=== PATIENT | female | born 1995 | race Caucasian/White ===

== ENCOUNTER → 2019-12-12 10:27 | Outpatient (CLI) | payer OTHER, SELFPAY ==
--- NOTE | 2019-12-12 10:45 | RAD_ITS ---
STUDY: X-RAY - LUMBAR SPINE REASON FOR EXAM: Female, 24 years old patient with left sided low back pain. TECHNIQUE: 6 view(s) of the lumbar spine were obtained. COMPARISON: Prior comparison studies are not available for review at this time. FINDINGS: Normal lumbar lordosis. There is no substantial scoliosis. There is a normal alignment of the vertebrae. Normal vertebral bodies and endplates. Normal disc space heights. There is no demonstrated fracture. The soft tissue structures are unremarkable. RAD/L/S Spine Min 4 Views IMPRESSION: Normal x-ray examination of the lumbar spine. Electronically Signed: Mary Fernández MD at 2:02 EST , Service support ,
== END ==
DX: M54.5 Low back pain (principal)
CPT/HCPCS: 72110

== ENCOUNTER → 2021-01-01 | Outpatient (CLI) | payer OTHER, SELFPAY ==
[2021-01-09 14:20] LABS: HPV Reflexed? NOT INDICATED
== END | disposition home or self-care (01) ==
LOC: LABSPEC 15:04
PROVIDERS: Visit Provider Student in an Organized Health Care Education/Training Program
DX: Z12.4 Encounter for screening for malignant neoplasm of cervix (principal)
CPT/HCPCS: 88175; G0145

== ENCOUNTER 2021-05-26 12:32 | Outpatient (CLI) | payer OTHER, SELFPAY | END 2021-05-26 23:59 | disposition home or self-care (01) | LOC: LAB 12:34 | PROVIDERS: Visit Provider Student in an Organized Health Care Education/Training Program | DX: N92.6 Irregular menstruation, unspecified (principal) | CPT/HCPCS: 36415; 84144 ==

== ENCOUNTER → 2021-06-03 | Outpatient (CLI) | payer OTHER, SELFPAY ==
[2021-06-03 13:45] LABS: Follicle Stimulating Hormone 6.9 mIU/mL; Luteinizing Hormone 4.5 mIU/mL; Prolactin 11.6 ng/mL; T4 Free Direct 1.11 ng/dL (0.76-1.46); Thyroid Stim Hormone (TSH) 1.25 uIU/mL (0.358-3.74)
[2021-06-03 13:52] LABS: Hepatitis B Surface Antibody Reactive; Rubella IgG Reactive (Nonreactive)
[2021-06-07 12:52] LABS: Testosterone Free 1.2 pg/mL (0.0-4.2); V-Zoster IgG (Immunity) 468 index (Immune >165)
== END | disposition home or self-care (01) ==
LOC: WOBLAB 11:37
PROVIDERS: Visit Provider Student in an Organized Health Care Education/Training Program
DX: N92.6 Irregular menstruation, unspecified (principal)
CPT/HCPCS: 36415; 82627; 82670; 83001; 83002; 84146; 84402; 84439; 84443; 86706; 86762; 86787; 82626

== ENCOUNTER 2025-01-13 11:10 | Emergency (ER) | payer BC, SELFPAY ==
[2025-01-13 11:10] VITALS: BP 139/89; PULSE 112; RESP 16; TEMP 37; O2SAT 99; BMI 32.2
[2025-01-13] MEDS: 0.9% Normal Saline (1000mL) 1,000 ML 999 ML IV (11:45)
[2025-01-13 11:47] LABS: Red Blood Cells-Urine 0 SEEN /hpf (0-5)
[2025-01-13] MEDS: Famotidine 200 MG/20 ML MDV 20 MG in 0.9% Normal Saline (Pres. free 8 ML 300 MG IV (11:48)
[2025-01-13 11:49] LABS: Color, Urine Yellow (Yellow); Glucose, Dipstick Normal (Normal); Ketone-Dipstick 5 mg/dl (Negative); Leukocyte Esterase-Dipstick 25 /ul (Negative); Nitrite-Dipstick Negative (Negative); Occult Blood-Urine Negative /ul (Negative); Protein-Dipstick Negative (Negative); Specific Gravity, Urine 1.020 (1.002-1.030); Urine Bilirubin Dipstick Negative (Negative)
[2025-01-13 11:50] LABS: Hematocrit 39.5 % (37-47); Hemoglobin 13.5 g/dL (12.0-15.0); Immature Granulocytes Count 0.040 X10^3/uL (0.0-0.0); Mean Corp Hgb Conc 34.2 g/dL (32-36); Mean Corpuscular Volume 84.0 fL (81-99); Mean Platelet Vol. 8.8 fl (6.2-12.0); NRBC Flagged by Analyzer 0 % (0-5); POSITIVE DIFFERENTIAL YES; Platelet Count 122 K/mm3 (150-450); RBC Distribution Width CV 12.9 % (11.6-14.6); RBC Distribution Width SD 39.5 fl (35.1-43.9); Red Blood Count 4.70 M/mm3 (4.2-5.4); White Blood Count 8.3 K/mm3 (4.4-11.0)
[2025-01-13 11:56] LABS: Mucous, Urine 1+ /hpf (<or=2+); Squamous Epithelial Cells - UA 0-5 SEEN /hpf (5-10)
--- OUTSIDE RECORDS SUMMARY | 2025-01-13 12:09 | XMS RPT_ITS | CCD ---
Author Organization [facility] Care Team Providers Care Palaeontologist Name Role Phone Distel, Jocelyn Unavailable Unavailable Distel, Jocelyn Unavailable Unavailable Distel, Jocelyn Unavailable Unavailable Distel, Jocelyn Unavailable Unavailable Distel, Jocelyn Unavailable Unavailable Distel, Jocelyn Unavailable Unavailable Amada Orellana Admitting Unavailable Amada Orellana Attending Unavailable Jocelyn Moser Primary Care Unavailable Hortensia Davis MD Primary Care Provider Unavailable Primary Care Provider UnavailHortensia Clark MD Primary Care Provider HORTENSIA DAVIS Primary Care Unavailable XANDER CARRASQUILLO Attending Unavailab HORTENSIA Horton Primary Care Unavailable SAGRARIO AKHTAR Attending Unavail able Generic Provider , No Assigned Pcp Primary Car e Provider Unavailable CESIA KENNEDY MD Attending Unavailable PHYSICIAN, NOT RECORDED Primary Care Unavaila ELIF Iglesias Attending Unavailable PHYSICIAN, NOT RECORDED Primary Care Unavaila ble GENERIC PROVIDER, NO ASSIGNED PCP Primary Care Unavailable No, Physician Primary Care Provider Unavailabl Kayla Marlow CNP Primary Care Provider JOSE LUIS MARTE Attending Unavailable KAYLA AMBRIZ Primary Care Unavailabl JOSE LUIS Sosa Attending Unavailable KAYLA AMBRIZ Primary Care Unavailabl MICHELA Brandon Attending Unavailable NO, PHYSICIAN Primary Care Unavailable NO, PHYSICIAN Primary Care Unavailable DWAYNE GUTIERREZ Referring Unavailable No, Physician Primary Care Provider Unavailabl e PHYSICIAN, NOT RECORDED Primary Care Physician U navailable PHYSICIAN, NOT RECORDED Primary Care UnavailCHRISTIANO Solano MD Attending Unavailable NO, PHYSICIAN Primary Care Unavailable STEPHEN PEREZ Referring Unavailable KAREEN MURO Attending Unavailable KAYLA AMBRIZ Primary Care ROXANN Arango Attending KAYLA Graham Primary Care KAYLA Bassett Attending Bruce ALVAREZ, PHYSICIAN Primary Care Unavailable STEPHEN PEREZ Attending Unavailable NO, PHYSICIAN Primary Care Unavailable ROXANN ZAFAR Attending KAYLA Graham Primary Care KAYLA Bassett Attending Bruce acuña Allergies Allergy Classification Reported Allergen(s) Allergy Type Date of Onset Reaction(s) Facility (20 sources) Naproxen; Translations: [naproxen] Drug Allergy 01-03-[address] [facility] Repository Medications Current Medications Medication Drug Class(es) Dates Sig (Normalized) Sig (Original) aspirin 81 mg oral tablet (2 sources) Platelet Aggregation Inhibitor, Nonsteroidal Anti-inflammatory Drug Start: 11-30-2024 Aspirin Low Dose 81 mg oral tablet, chewable Dose : 81 mg = 1 tab(s), Chewed, qDay, 0 Refill(s) Start Date: 11/30/24 Status: Ordered Medication Dispense Status: Completed Total Allowed Fills: 1 Fills Dispensed: 0 Start: 11-30-2024 aspirin 81 mg chewable tablet 1 (one) tablet (81 mg total) . 11/30/2024 Active azelaic acid 150 mg/ml topical foam (10 sources) Start: 05-21-2021 azelaic acid (Finacea) 15 % Foam estradiol 2 mg oral tablet (1 source) Estrogen Start: 11-30-2024 estradiol 2 mg oral tablet Dose : 2 mg = 1 tab(s), Oral, TID, 0 Refill(s) Start Date: 11/30/24 Status: Ordered Medication Dispense Status: Completed Total Allowed Fills: 1 Fills Dispensed: 0 methIMAzole 10 mg oral tablet (15 sources) Thyroid Hormone Synthesis Inhibitor Start: 11-12-2023 End: 11-11-2024 take 2 tablets by mouth once daily at breakfast, then take 1 tablet by mouth at dinner methIMAzole (TAPAZOLE) 10 MG tablet Indications: Graves disease Take 2 (two) tablets (20 mg total) by mouth daily with breakfast AND 1 (one) tablet (10 mg total) after evening meal. 90 tablet 11 11/12/2023 Active Start: 10-17-2022 End: 10-17-2023 take 1 tablet by mouth twice daily methIMAzole (TAPAZOLE) 10 MG tablet Take 1 (one) tablet (10 mg total) by mouth 2 (two) times a day . 60 tablet 11 10/17/2022 10/17/2023 Active Start: 08-26-2021 End: 10-17-2022 take 1 tablet by mouth once daily methIMAzole (TAPAZOLE) 5 MG tablet Take 1 (one) tablet (5 mg total) by mouth daily . 30 tablet 11 10/04/2021 10/17/2022 Discontinued (Reorder (Suppress CancelRx Message to Pharmacy)) Complete with DHA oral capsule (1 source) Start: 12-02-2022 Complete with DHA oral capsule 1 cap, Oral, qDay, with food. any covered of choice., # 90 cap(s), 2 Refill(s), Pharmacy: [id number], 160.5, cm, 12/02/22 10:52:00 EDT, Height, kg, 12/02/22 10:52:00 EDT, Dosing Weight Start Date: 12/02/22 Status: Ordered Medication Dispense Status: Completed Quantity: 90.0 Unit: cap(s) Total Allowed Fills: 3 Fills Dispensed: 0 vitamin with Ca-Iron-FA 27-1 mg Tab (6 sources) take 1 tablet by mouth once daily vitamin with Ca-Iron-FA 27-1 mg Tab Take 1 (one) tablet by mouth daily . Active progesterone 50 mg/ml injectable solution (1 source) Progesterone Start: 11-30-2024 progesterone in OIL 50 mg/mL intramuscular solution Dose = 10 mg, qDay, 0 Refill(s), 72.7 Start Date: 11/30/24 Status: Ordered Medication Dispense Status: Completed Total Allowed Fills: 1 Fills Dispensed: 0 propylthiouracil 50 mg oral tablet (5 sources) Thyroid Hormone Synthesis Inhibitor Start: 09-08-2024 take 1 tablet by mouth three times daily propylthiouraciL (PTU) 50 mg tablet Take 1 (one) tablet (50 mg total) by mouth 3 (three) times a day . 90 tablet 3 09/08/2024 Active terbinafine 250 mg oral tablet (1 source) Allylamine Antifungal Start: 12-22-2023 End: 02-05-2024 take 1 tablet by mouth once daily terbinafine HCL (LAMISIL) 250 mg tablet Take 1 (one) tablet (250 mg total) by mouth daily . 45 tablet 12/22/2023 02/05/2024 Active Completed/Discontinued Medications Medication Drug Class(es) Dates Sig (Normalized) Sig (Original) acetaminophen 325 mg / HYDROcodone bitartrate 5 mg oral tablet (1 source) Opioid Agonist Start: 12-01-2013 take 1 tablet by mouth every six hours as needed HYDROcodone-acetam inophen (NORCO) 5-325 mg per tablet Take 1 tablet by mouth every 6 hours as needed for Pain. 21 tablet 0 12/01/2013 Active Comment on above: Take 1 tablet by lesli th every 6 hours as needed for Pain. [id number] 200 actuat albuterol 0.09 mg/actuat metered dose inhaler (19 sources) beta2-Adrenergic Agonist End: 10-18-2024 albuterol 90 mcg/actuation inhaler Inhale 2 (two) puffs . 10/18/2024 Discontinued (Patient's Request) take 2 puff(s) by in halation every six hours as needed albuterol HFA (PROVENTIL HFA) 90 mcg/actuation inhaler Inhale 2 Puffs as instructed every 6 hours as needed. 0 Active Comment on above: Inhale 2 Puffs as in structed every 6 hours as needed. amoxicillin 875 mg / clavulanate 125 mg oral tablet (3 sources) Penicillin-class Antibacterial Start: 025 End: amoxicillin-clavula rahul (AUGMENTIN) 875-125 mg per tablet 05/18/2024 10/18/2024 Discontinued (Patient's Request) bacitracin zinc 0.5 unt/mg topical ointment (1 source) Start: 023 End: 023 bacitracin ointment 1 Application betamethasone 0.5 mg/ml / clotrimazole 10 mg/ml topical cream (4 sources) Azole Antifungal, Corticosteroid Start: 024 End: 025 clotrimazole-betame thasone (LOTRISONE) cream Apply topically 2 (two) times a day . 30 g 2 12/22/2023 10/18/2024 Discontinued (Patient's Request) ferrous sulfate 325 mg oral tablet (20 sources) Start: End: take 1 tablet by mouth once daily at breakfast ferrous sulfate 325 (65 FE) MG tablet Take 1 (one) tablet (325 mg total) by mouth daily with breakfast . 90 tablet 08/07/2021 10/18/2024 Discontinued (Patient's Request) ibuprofen 600 mg oral tablet (1 source) Nonsteroidal Anti-inflammatory Drug Start: take 1 tablet by mouth every six hours as needed ibuprofen (MOTRIN) 600 mg tablet Take 1 tablet by mouth every 6 hours as needed for Pain. 28 tablet 0 12/01/2013 Active Comment on above: Take 1 tablet by lesli th every 6 hours as needed for Pain. metFORMIN hydrochloride 500 mg oral tablet (18 sources) Biguanide Start: End: take 1 tablet by mouth once daily at breakfast metFORMIN (GLUCOPHAGE) 500 MG tablet Take 1 (one) tablet (500 mg total) by mouth daily with breakfast . 30 tablet 11 08/05/2021 10/17/2022 Discontinued End: 10-18-2024 take 1 tablet by mouth twice daily at mealtime metFORMIN (GLUCOPHAGE) 500 MG tablet Take 1 (one) tablet (500 mg total) by mouth 2 (two) times a day with meals . 10/18/2024 Discontinued (Patient's Request) NORETHINDRONE, CONTRACEPTIVE, ORAL (1 source) NORETHINDRONE, CONTRACEPTIVE, ORAL Take by mouth. 0 Active Comment on above: Take by mouth. phentermine hydrochloride 37.5 mg oral tablet (4 sources) Sympathomimetic Amine Anorectic Start: End: take 1 tablet by mouth once daily in the morning phentermine (Adipex-P) 37.5 mg tablet Indications: BMI 29.0-29.9,adult Take 1 (one) tablet (37.5 mg total) by mouth every morning . 30 tablet 0 11/24/2021 10/17/2022 Discontinued propranolol hydrochloride 10 mg oral tablet (5 sources) beta-Adrenergic Donna Start: End: 09-09-2 025 take 1 tablet by mouth four times daily as needed propranoloL (INDERAL) 10 MG tablet Take 1 (one) tablet (10 mg total) by mouth 4 (four) times a day as needed . 120 tablet 11 10/17/2022 10/18/2024 Discontinued (Patient's Request) Problems Active Problems Problem Classification Problem Date Documented Date Episodic/Chronic Acquired foot deformities (1 source) Bunion; Translations: [Bunion of unspecified foot] 12-22-2023 Episodic Asthma (1 source) Asthma 12-02-2022 Chronic Comment on above: sport induced Cardiac dysrhythmias (2 sources) Palpitations; Translations: [Palpitations] Onset: 10-26-2022 Episodic Deficiency and other anemia (2 sources) Iron deficiency anemia, unspecified; Translations: [Iron deficiency anemia, unspecified] Onset: 11-24-2021 Episodic Mycoses (2 sources) Onychomycosis; Translations: [Tinea unguium] 12-22-2023 Episodic Other connective tissue disease (1 source) Deformity of lower limb; Translations: [Contracture of muscle, unspecified lower leg] 12-22-2023 Episodic Other ear and sense organ disorders (1 source) Conductive hearing loss, unilateral, right ear, with unrestricted hearing on the contralateral side; Translations: [Conductive hearing loss, unilateral] 05-19-2024 Chronic Other endocrine disorders (20 sources) Polycystic ovary syndrome; Translations: [Polycystic ovarian syndrome] Chronic Other lower respiratory disease (2 sources) Solitary pulmonary nodule; Translations: [Solitary pulmonary nodule] Onset: 08-17-2017 Episodic Other lower respiratory disease (1 source) Solitary nodule of lung 12-02-2022 Episodic Other and delivery including normal (1 source) Onset: 10-20-2024 11-30-2024 Episodic Other skin disorders (1 source) Dystrophia unguium; Translations: [Nail dystrophy] 12-22-2023 Episodic Residual codes; unclassified (2 sources) 8 weeks gestation of ; Translations: [8 weeks gestation of ] Onset: 11-30-2024 Episodic Thyroid disorders (20 sources) Subclinical hyperthyroidism; Translations: [Thyrotoxicosis, unspecified without thyrotoxic crisis or storm] Onset: 11-24-2021 Chronic Unclassified (11 sources) Other nonspecific abnormal finding of lung field; Translations: [Patient encounter status] Onset: 02-25-2017 10-18-2024 Episodic Unclassified (2 sources) 10/20/2024 FMLA PAPERWORK Onset: 10-20-2024 Viral infection (1 source) Acute viral disease; Translations: [Viral infection, unspecified] 05-19-2024 Episodic Past or Other Problems Problem Classification Problem Date Documented Da te Episodic/Chronic Administrative/social admission (12 sources) Financial problem; Translations: [Problem related to housing and economic circumstances, unspecified] Onset: 11-24-2021 11-24-2021 Episodic Deficiency and other anemia (12 sources) Iron deficiency anemia; Translations: [Iron deficiency anemia, unspecified] Onset: 11-24-2021 Episodic Immunizations and screening for infectious disease (20 sources) Patient encounter status; Translations: [Encounter for immunization] Onset: 08-05-2021 Episodic Mood disorders (10 sources) Mood disorders Onset: 08-06-2021 Resolved: 10-18-2024 08-06-2021 Open wounds of extremities (3 sources) Laceration of left knee; Translations: [Laceration without foreign body, left knee, initial encounter] Onset: 12-03-2022 12-03-2022 Episodic Other nutritional; endocrine; and metabolic disorders (18 sources) Weight gain; Translations: [Abnormal weight gain] Onset: 08-05-2021 Episodic Other nutritional; endocrine; and metabolic disorders (10 sources) Overweight in adulthood with body mass index of 25 or more but less than 30; Translations: [Body mass index (BMI) 29.0-29.9, adult] Onset: 11-24-2021 11-24-2021 Episodic Other nutritional; endocrine; and metabolic disorders (6 sources) Weight increased; Translations: [Abnormal weight gain] Onset: 08-05-2021 08-05-2021 Episodic Otitis media and related conditions (4 sources) Bilateral disorder of Eustachian tubes; Translations: [Unspecified Eustachian tube disorder, bilateral] Onset: 05-19-2024 05-19-2024 Episodic Residual codes; unclassified (2 sources) Localized edema; Translations: [Localized edema] Onset: 11-25-2021 Episodic Skin and subcutaneous tissue infections (2 sources) Cellulitis of left lower limb; Translations: [Cellulitis of left lower limb] Onset: 11-25-2021 Episodic Syncope (2 sources) Syncope and collapse; Translations: [Syncope and collapse] Onset: 02-25-2017 Episodic Results Test Name Value Interpretation Reference Range Facility AMOXICILLIN+CLAVULANATE:SUSC :PT:ISOLATE:ORDQN:MICon 11-30-2024 Amoxicillin+Clavulanate HOWARD [Susc] >100,000 cfu/ml Escherichia coli [facility] Work Phone: Amoxicillin+Clavulanate HOWARD [Susc]on 11-30-[address] Escherichia [address] [facility] Work Phone: HCG, BLOOD, QUANTITATIVEon 0 10-31-2024 HCG, QUANTITATIVE 363 mIU/mL [address] Comment on above: Order Comment: Males and non females: <5 mIU/mL Females during : 3-4 weeks 9-130 mIU/mL 4-5 weeks 75-2600 mIU/mL 5-6 weeks 850-20,800 mIU/mL 6-7 weeks 4000-100,200 mIU/mL 7-12 weeks 11,500-289,000 mIU/mL 12-16 weeks 18,300-137,000 mIU/mL 16-29 weeks 1,400-53,000 mIU/mL 29-41 weeks 940-60,000 mIU/mL Performed By: #### 4 5827 #### [facility] [place] [address] Yoel Riley M.D. [id number] HCG, BLOOD, QUANTITATIVEon 0 10-28-2024 HCG, QUANTITATIVE 79 mIU/mL [address] Comment on above: Order Comment: Males and non females: <5 mIU/mL Females during : 3-4 weeks 9-130 mIU/mL 4-5 weeks 75-2600 mIU/mL 5-6 weeks 850-20,800 mIU/mL 6-7 weeks 4000-100,200 mIU/mL 7-12 weeks 11,500-289,000 mIU/mL 12-16 weeks 18,300-137,000 mIU/mL 16-29 weeks 1,400-53,000 mIU/mL 29-41 weeks 940-60,000 mIU/mL Performed By: #### 4 5827 #### [place] [address] Yoel Riley M.D. [id number] CBC (INCLUDES DIFF/PLT)on Basophils (Bld) [#/Vol] 0.013 10*3/uL Normal 0-200 [facility] Comment on above: Performed By: #### 6 399, 5616, 03310 #### [facility] of [address], [address] [place] [address] [employer] Sales Leader: Lucas Rose MD Basophils/100 WBC (Bld) 0.2 % Normal [facility] Comment on above: Performed By: #### 6 399, 5616, 21102 #### [facility] [place] [address] [employer] Sales Leader: Lucas Rose MD Eosinophils (Bld) [#/Vol] 0 10*3/uL Low 15-500 [facility] Comment on above: Performed By: #### 6 399, 5616, 21471 #### [facility] [place] [address] [employer] Sales Leader: Lucas Rose MD Eosinophils/100 WBC (Bld) 0.0 % Normal [facility] Comment on above: Performed By: #### 6 399, 5616, 50515 #### [facility] [place] [address] [employer] Sales Leader: Lucas Rose MD Erythrocyte distribution width (RBC) [Ratio] 14.1 % Normal 11.0-15.0 [facility] Comment on above: Performed By: #### 6 399, 5616, 57034 #### [facility] [place] [address] [employer] Sales Leader: Lucas Rose MD Hematocrit (Bld) [Volume fraction] 39.6 % Normal 35.0-45.0 [facility] Comment on above: Performed By: #### 6 399, 5616, 51187 #### [facility] of [address], [address] [place] [address] [employer] Sales Leader: Lucas Rose MD Hemoglobin (Bld) [Mass/Vol] 12.7 g/dL Normal 11.7-15.5 [facility] Comment on above: Performed By: #### 6 399, 5616, 09993 #### [facility] of [address], [address] [place] [address] [employer] Sales Leader: Lucas Rose MD Lymphocytes (Bld) [#/Vol] 2.01 10*3/uL Normal 850-3900 [facility] Comment on above: Performed By: #### 6 399, 5616, 87648 #### [facility] of [place] [address] [employer] Sales Leader: Lucas Rose MD Lymphocytes/100 WBC (Bld) 31.4 % Normal [facility] Comment on above: Performed By: #### 6 399, 5616, 50294 #### [facility] of [place] [address] [employer] Sales Leader: Lucas Rose MD MCH (RBC) [Entitic mass] 27.8 pg Normal 27.0-33.0 [facility] Comment on above: Performed By: #### 6 399, 5616, 59657 #### [facility] of [place] [address] [employer] Sales Leader: Lucas Rose MD MCHC (RBC) [Mass/Vol] 32.1 g/dL Normal 32.0-36.[address] [facility] [address] [facility] Comment on above: Result Comment: For adults, a slight decrease in the calculated MCHC value (in the range of 30 to 32 g/dL) is most likely not clinically significant; however, it should be interpreted with caution in correlation with other red cell parameters and the patient's clinical condition. Performed By: #### 6 399, 5616, 38338 #### [facility] of [place] [address] [employer] Sales Leader: Lucas Rose MD MCV (RBC) [Entitic vol] 86.7 fL Normal 80.0-100.0 [facility] Comment on above: Performed By: #### 6 399, 5616, 20561 #### [facility] of [place] [address] [employer] Sales Leader: Lucas Rose MD Monocytes (Bld) [#/Vol] 0.39 10*3/uL Normal 200-950 [facility] Comment on above: Performed By: #### 6 399, 5616, 17199 #### [facility] of [place] [address] [employer] Sales Leader: Lucas Rose MD Monocytes/100 WBC (Bld) 6.1 % Normal [facility] Comment on above: Performed By: #### 6 399, 5616, 89762 #### [facility] of [place] [address] [employer] Sales Leader: Lucas Rose MD Neutrophils (Bld) [#/Vol] 3.987 10*3/uL Normal 1500-78 00 [facility] Comment on above: Performed By: #### 6 399, 5616, 44078 #### [facility] [place] [address] [employer] Sales Leader: Lucas Rose MD Neutrophils/100 WBC (Bld) 62.3 % Normal [facility] Comment on above: Performed By: #### 6 399, 5616, 22687 #### [facility] of [place] [address] [employer] Sales Leader: Lucas Rose MD Platelet mean volume (Bld) [Entitic vol] 9.1 fL Normal 7.5-12.5 [facility] Comment on above: Performed By: #### 6 399, 5616, 70941 #### [facility] of [place] [address] [employer] Sales Leader: Lucas Rose MD Platelets (Bld) [#/Vol] 179 10*3/uL Normal 140-400 [facility] Comment on above: Performed By: #### 6 399, 5616, 82134 #### [facility] of [address], [address] [place] [address] [employer] Sales Leader: Lucas Rose MD RBC (Bld) [#/Vol] 4.57 10*6/uL Normal 3.80-5.10 [facility] Comment on above: Performed By: #### 6 399, 5616, 32515 #### [facility] of [address], [address] [place] [address] [employer] Sales Leader: Lucas Rose MD WBC (Bld) [#/Vol] 6.4 10*3/uL Normal 3.8-10.8 [facility] Comment on above: Performed By: #### 6 399, 5616, 55219 #### [facility] of [place] [address] [employer] Sales Leader: Lucas Rose MD COMPREHENSIVE METABOLIC PANE L W/ANION GAPon 10-20-2024 Albumin [Mass/Vol] 4.0 g/dL Normal 3.6-5.1 [facility] Comment on above: Performed By: #### 6 399, 5616, 00108 #### [facility] of [place] [address] [employer] Sales Leader: Lucas Rose MD ALP [Catalytic activity/Vol] 50 U/L Normal 31-125 [facility] Comment on above: Performed By: #### 6 399, 5616, 08603 #### [facility] of [place] [address] [employer] Sales Leader: Lucas Rose MD ALT [Catalytic activity/Vol] 13 U/L Normal 6-29 [facility] Comment on above: Performed By: #### 6 399, 5616, 66547 #### [facility] of [place] [address] [employer] Sales Leader: Lucas Rose MD AST [Catalytic activity/Vol] 14 U/L Normal 10-30 [facility] Comment on above: Performed By: #### 6 399, 5616, 97564 #### [facility] of [place] [address] [employer] Sales Leader: Lucas Rose MD Bilirubin [Mass/Vol] 0.3 mg/dL Normal 0.2-1.2 [facility] Comment on above: Performed By: #### 6 399, 5616, 68113 #### [facility] of [place] [address] [employer] Sales Leader: Lucas Rose MD Calcium [Mass/Vol] 8.8 mg/dL Normal 8.6-10.2 [facility] Comment on above: Performed By: #### 6 399, 5616, 08278 #### [facility] [place] [address] [employer] Sales Leader: Lucas Rose MD Chloride [Moles/Vol] 105 mmol/L Normal 98-110 [facility] Comment on above: Performed By: #### 6 399, 5616, 23962 #### [facility] [place] [address] [employer] Sales Leader: Lucas Rose MD CO2 [Moles/Vol] 26 mmol/L Normal 20-32 [facility] Comment on above: Performed By: #### 6 399, 5616, 33821 #### [facility] [place] [address] [employer] Sales Leader: Lucas Rose MD Creatinine [Mass/Vol] 0.67 mg/dL Normal 0.50-0.[address] [facility] Comment on above: Performed By: #### 6 399, 5616, 35951 #### [facility] [place] [address] [employer] Sales Leader: Lucas Rose MD ELECTROLYTE BALANCE 6 mmol/L (calc) Low 7-17 [facility] Comment on above: Performed By: #### 6 399, 5616, 05549 #### [facility] [place] [address] [employer] Sales Leader: Lucas Rose MD GFR/1.73 sq M.predicted among non-blacks MDRD (S/P/Bld) [Vol rate/Area] 121 mL/min/{1.73_m2} Normal > OR = 60 [facility] Comment on above: Performed By: #### 6 399, 5616, 36831 #### [facility] [place] [address] [employer] Sales Leader: Lucas Rose MD Glucose [Mass/Vol] 98 mg/dL Normal 65-139 [facility] Comment on above: Result Comment: Non-fasting reference interval Performed By: #### 6 399, 5616, 43164 #### [facility] [place] [address] [employer] Sales Leader: Lucas Rose MD Potassium [Moles/Vol] 3.8 mmol/L Normal 3.5-5.[address] [facility] [address] [facility] Comment on above: Performed By: #### 6 399, 5616, 68505 #### [facility] [place] [address] [employer] Sales Leader: Lucas Rose MD Protein [Mass/Vol] 6.3 g/dL Normal 6.1-8.1 [facility] Comment on above: Performed By: #### 6 399, 5616, 24948 #### [facility] [place] [address] [employer] Sales Leader: Lucas Rose MD Sodium [Moles/Vol] 137 mmol/L Normal 135-146 [facility] Comment on above: Performed By: #### 6 399, 5616, 39677 #### [facility] [place] [address] [employer] Sales Leader: Lucas Rose MD Urea nitrogen [Mass/Vol] 16 mg/dL Normal 7-25 [facility] Comment on above: Performed By: #### 6 399, 5616, 87359 #### [facility] of [place] [address] [employer] Sales Leader: Lucas Rose MD IRON, TIBC AND FERRITIN GAVIN Mota 10-20-2024 % SATURATION 23 % (calc) Normal 16-45 [facility] Comment on above: Order Comment: FASTI NG:NO FASTING: NO Performed By: #### 6 399, 5616, 75746 #### [facility] [place] [address] [employer] Sales Leader: Lucas Rose MD Ferritin [Mass/Vol] 14 ng/mL Low 16-154 [facility] Comment on above: Order Comment: FASTI NG:NO FASTING: NO Performed By: #### 6 399, 5616, 05167 #### [facility] [place] [address] [employer] Sales Leader: Lucas Rose MD IRON BINDING CAPACITY 326 mcg/dL (calc) Normal 250-450 [facility] Comment on above: Order Comment: FASTI NG:NO FASTING: NO Performed By: #### 6 399, 5616, 04028 #### [facility] [place] [address] [employer] Sales Leader: Lucas Rose MD IRON, TOTAL 74 mcg/dL Normal 40-190 [facility] Comment on above: Order Comment: FASTI NG:NO FASTING: NO Performed By: #### 6 399, 5616, 23038 #### [facility] [place] [address] [employer] Sales Leader: Lucas Rose MD ED Prov Noteon 08-21-2024 ED Prov Note ED PROVIDER NOTE [facility] EM[facility] NAME: Gardenia Kevin AGE: 29 y.o. : 1995 VISIT DATE: 08/21/2024 CSN: [id number] PCP: No, Physician No chief complaint on file. HPI Past Medical History: Diagnosis Date Graves disease PCOS (polycystic ovarian syndrome) History reviewed. No pertinent surgical history. Family History Problem Relation Age of Onset Lymphoma Maternal Grandmother Bladder Cancer Maternal Grandfather Social History [1] Previous Medications Medication Sig albuterol 90 mcg/actuation inhaler Inhale 2 (two) puffs . (Patient not taking: Reported on 05/19/2024 .) amoxicillin-clavulana te (AUGMENTIN) 875-125 mg per tablet clotrimazole-betameth asone (LOTRISONE) cream Apply topically 2 (two) times a day . (Patient not taking: Reported on 05/19/2024 .) ferrous sulfate 325 (65 FE) MG tablet Take 1 (one) tablet (325 mg total) by mouth daily with breakfast . (Patient not taking: Reported on 11/22/2021 .) metFORMIN (GLUCOPHAGE) 500 MG tablet Take 1 (one) tablet (500 mg total) by mouth 2 (two) times a day with meals . (Patient not taking: Reported on 05/19/2024 .) methIMAzole (TAPAZOLE) 10 MG tablet Take 2 (two) tablets (20 mg total) by mouth daily with breakfast AND 1 (one) tablet (10 mg total) after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 CLINICAL INFORMATION: ANNUAL - Non - DATE LMP/MENOPAUSE: 12/19/20 LMP - COLLECTION VIAL: Thin Prep Vial - FINANCIAL ADMINISTRATOR SOURCE: CERVICAL/ENDOCERVICAL - COLLECTION TECHNIQUE: BRUSH/SPATULA Specimen Comment: [id number] Specimen Comment: No. of containers..01 ThinPrep Vial Result Comment: Cherelle Tavrea, Truss Designer Performed By: #### L 7400.0353 #### [facility] [address] [place], [place], [address] COMM . Normal . [facility] Comment on above: Order Comment: CYTOL OGY INFORMATION: - CLINICAL INFORMATION: ANNUAL - Non - DATE LMP/MENOPAUSE: 12/19/20 LMP - COLLECTION VIAL: Thin Prep Vial - FINANCIAL ADMINISTRATOR SOURCE: CERVICAL/ENDOCERVICAL - COLLECTION TECHNIQUE: BRUSH/SPATULA Specimen Comment: [id number] Specimen Comment: No. of containers..01 ThinPrep Vial Performed By: #### L 7400.0353 #### [facility] [address] [place], [address] CHEST 1 VIEWon 01-05-2021 CHEST 1 VIEW Patient Name: GARDENIA KEYES STUDY: CHEST 1 VIEW; 01/05/2021 2:06 pm INDICATION: Chest Pain . COMPARISON: None. ACCESSION NUMBER(S): [id number] ORDERING CLINICIAN: GRAHAM SMILEY FINDINGS: CARDIOMEDIASTINAL SILHOUETTE: Cardiomediastinal silhouette is normal in size and configuration. LUNGS: Lungs are clear. ABDOMEN: No remarkable upper abdominal findings. BONES: No acute osseous changes. IMPRESSION: 1. No evidence of acute cardiopulmonary process. Electronically signed by: RAI NAVA MD Normal [facility] CORONAVIRUS 2019 BY PCRon SARS-CoV-2 (COVID-19) RNA AMRIT+probe Ql (Unsp spec) Not detected Normal Not Detected [facility] Comment on above: Result Comment: . This test has received FDA Emergency Use Authorization (EUA) and has been verified by [facility]. This test is only authorized for the duration of time that circumstances exist to justify the authorization of the emergency use of in vitro diagnostic tests for the detection of SARS-CoV-2 virus and/or diagnosis of COVID-19 infection under section 564(b)(1) of the Act, 21 U.S.C. 360bbb-3(b)(1), unless the authorization is terminated or revoked sooner. [facility] is certified under CLIA-88 as qualified to perform high complexity testing. Testing is performed in the [facility] laboratory located at [address] [place] [address]. SARS-CoV-2/Flu/RSV Multiplex Test: Fact sheet for providers: https://www.fda.gov/media/632242/download Fact sheet for patients: https://www.fda.gov/media/305373/download Performed By: #### C OV19 #### [address] [address] Lab Specimen Source Nasal, Nasopharyngeal [facility] Comment on above: Performed By: #### C OV19 #### [address] [address] DATE OF SYMPTOM ONSET [[id number]]? [id number] [facility] Comment on above: Performed By: #### C OV19 #### [address] [address] Covid 19 Resultson 1 SARS-CoV-2 (COVID-19) RNA AMRIT+probe Ql (Unsp spec) NEGATIVE COVID-19 Test Coronaviruses are common world-wide and are the cause of many common colds. SARS-COV2 is a new coronavirus that began circulating worldwide in 2019 so we are calling it COVID-19. It has been estimated that four out of five patients with COVID-19 will recover at home without the need for medical attention. Symptoms of COVID-19 may include cough, fever, shortness of breath, loss of taste or smell and other flu-like symptoms including chills, sore muscles, sore throat, and headache. Severe illness is more common in older people and people with other health problems such as high blood pressure, obesity, and immune system problems. If the test is positive, you have COVID-19. You will be contacted by the ordering physicians office and instructed to remain on home isolation, in accordance with CDC guidelines. You may also be contacted by the [facility] to see if any of your close contacts may have been exposed to the virus and need to quarantine. If the test is negative, you likely do not have COVID-19 at this time, but you still may have a different illness that can spread to other people (like Influenza, or the Flu) and could still be at risk for getting COVID-19. We recommend that you stay away from other people to limit the spread of illness until your symptoms are improving and you are fever-free for 24 hours without the use of fever lowering medications such as acetaminophen or ibuprofen. No test is 100% accurate so if you are still concerned you may have COVID-19, talk to your doctor about the need to continue to stay away from others. Medicines Unless your provider told you not to use the following: Acetaminophen (Tylenol and others) is generally safe. Anti-inflammatory medications, such as Ibuprofen (Advil or Motrin) or Naproxen (Aleve) can also be used. Mwhd-xja-jfiohst cough and cold medicines can be used according to the instructions on the package. Some qcbs-ykc-mwtbrwv medicines also contain acetaminophen. Make sure you are not taking more than your recommended dose. For those not hospitalized, there is no specific treatment available for this illness. Antibiotics do not treat Coronaviruses. Follow-Up Follow up with your doctor by scheduling a virtual visit or consider follow-up at one of our urgent care fever clinics. If you are having difficulty breathing, or are very weak and having difficulty standing, this is a medical emergency. Call 911 or have someone take you to the nearest emergency room immediately. If possible, wear a facemask. Additional guidance from the CDC for patients who tested POSITIVE for COVID-19 How to isolate: Isolate yourself in a specific room at home and limit your contact with others. Use a separate bathroom from other members of the household, when possible. Leave home only to get essential medical care. Do not go to work, school or public areas. Avoid using public transportation, ride-sharing, or taxis. Restrict contact with pets and other animals. If you must care for your pet or be around animals while you are sick, wash your hands before and after your interaction and wear a facemask. Make sure that shared spaces in the home have good airflow, such as by an air conditioner or an opened window, weather permitting. Personal Hygiene Procedures: Wear a face mask when in the same room as other people or pets. If a face mask interferes with your breathing, others should wear a mask when sharing space with you. Frequent hand-washing: wash your hands with soap and water for at least 20 seconds. If soap and water are not available, use alcohol-based hand integration lead. Avoid touching your eyes, nose, and mouth with unwashed hands. Household Hygiene Procedures: Avoid sharing personal household items such as dishes, glassware, cups, eating utensils, towels or bedding with other people or pets in your home. After use, these items should be washed with soap and hot water. Disinfect all high-touch surfaces every day with antibacterial cleaning solutions such as Lysol wipes, bleach, cleansers, etc. High-touch surfaces include tabletops, doorknobs, bathroom fixtures, toilets, phones, keyboards, tablets and bedside tables. Immediately clean any surfaces that may have blood, poop or body fluids on them, using antibacterial cleaning solutions such as Lysol wipes, bleach, cleansers, etc. If clothing or bedding come into contact with blood, poop or body fluids, they should be washed immediately. Follow the directions on the laundry detergent and clothing labels but hot water is recommended when possible. Stopping home isolation precautions: If possible, consult your doctor before stopping home isolation precautions. According to the CDC, you can discontinue home isolation precautions when you have met both of these criteria: Your fever and respiratory symptoms have been gone for 24 melissa (more content not included)... Normal [facility] Provider Note - ED v3on 12-11 Provider Note - ED v3 Provider Note: Chart Review: ED NOTES ED NOTES: History of Present Illness: 25-year-old female presents with concern for chest pain. States it began with myalgias yesterday. States it is worked her way up to her chest. States that she feels congested. Mildly short of breath. Denies any fever, chills, nausea, vomiting, abdominal pain, urinary symptoms. Patient denies any history of DVT, PE, long trips, surgeries, hospitalizations. 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 Patient is currently not vaccinated against coronavirus. Past Medical History: None Past surgical History: None Family history: Reviewed and not pertinent to complaint Social history: Denies any drug, alcohol, tobacco abuse. REVIEW OF SYSTEMS: Pertinent negatives and positives noted in the HPI. Otherwise, a complete review of system was negative. PHYSICAL EXAM: Appearance: Alert, oriented , cooperative, in no acute distress. Skin: Intact, dry skin, no lesions, rash, petechiae or purpura. Eyes: PERRLA, EOMs intact, Conjunctiva pink with no redness or exudates. Eyelids without lesions. No scleral icterus. HENT: Normocephalic, atraumatic. Nares patent Neck: Supple, without meningismus. Trachea at midline. No lymphadenopathy. Pulmonary: Clear bilaterally with good chest wall excursion. No rales, rhonchi or wheezing. No accessory muscle use or stridor. Cardiac: Regular rate and rhythm, no rubs, murmurs, or gallops. Abdomen: Abdomen is soft, nontender, and nondistended. No palpable organomegaly. No rebound or guarding. Genitourinary: Exam deferred. Musculoskeletal: Full range of motion. Pulses full and equal. No cyanosis, clubbing, or edema. Neurological: No focal neurologic deficit. Psychiatric: Appropriate mood and affect. HISTORY OF PRESENTING ILLNESS GARDENIA is a 25 year old Female and was seen by me at 05-Jan-2021 13:31. Triage Information: Most recent Vital Sign Value Date Temp (F): 98.2 01-05-2021 13:49 Temp (C): 36.7 01-05-2021 13:49 Heart Rate (beats/min): 108 01-05-2021 13:49 Respirations (breaths/min): 16 01-05-2021 13:49 SpO2 (%): 100 01-05-2021 13:49 BP Systolic (mm Hg): 167 01-05-2021 13:49 BP Diastolic (mm Hg): 105 01-05-2021 13:49 PAST MEDICAL HISTORY ALLERGIES/INTOLERANCE S: Allergy Allergen: naproxen Type: Drug Reaction: Hives/Urticaria HEALTH HISTORY: No documented data. OUTPATIENT MEDICATIONS: Home Medications Review Status for Reconciliation: Complete Med Status: No Current Medications SIGNIFICANT EVENTS: Past Medical History Description:asthma CRITICAL CARE RESULTS: Recent Lab Results: I have reviewed these laboratory results: Coronavirus 2019 by PCR 05-Jan-2021 14:17:00 ResultValue Fluid Source Nasal, Nasopharyngeal Coronavirus 2019,PCR NOT DETECTED Reference Range: Not Detected .This test has received FDA Emergency Use Authorization (EUA) and has been verified by [facility]. This test is only authorized for the duration of time that circum Date of Symptom Onset 20210103 Radiology Results: Impression: 1. No evidence of acute cardiopulmonary process. Xray Chest 1 View [Jan 05 2021 2:43PM] VITAL SIGNS: T PRBP SpO2O2(LPM) %FiO2 Method 05-Jan-2021 15:34:[id number]/83 100 05-Jan-2021 15:33:[id number]/80 100 05-Jan-2021 13:49:[id number] /105 100 room air, no respiratory support 05-Jan-2021 13:35:[id number] /105 100 room air, no respiratory support MDM MDM/ED COURSE: Patient appears well and nontoxic. EKG nonischemic. Chest x-ray negative. Covid negative. Patient's blood pressure spontaneously reduced. Patient will keep a blood pressure log and follow-up with her primary care provider. Asked to return for new or worsening symptoms. Patient agreeable and discharged home in stable condition. PROGRESS NOTE EKG Post-Procedure Diagnosis: EKG INTERPRETATION: EKG Date/Time: 05-Jan-2021 13:56 Impression: Normal sinus rhythm at 88 bpm. HI interval 118 ms. QTC of [address] changes. No evidence of acute ischemia at this time. STEMI: no DISPOSITION Diagnosis/Annotation: ED Dx Name:Chest pain Code:R07.9 Disposition: discharged Type: home CONSULT CRITICAL CARE TIME Is this a critically ill patient: no Electronic Signatures: Graham Smiley) (Signed 05-Jan-2021 15:45) Authored: ED Notes, HPI, PMH, PE, Results/Vital Signs, MDM/ED Course, Procedure, Clinical Impression, Attestation, Chart Review, Scores Last Updated: 05-Jan-2021 15:45 by Graham Smiley) [facility] Triage - EDon 11-27-2021 Triage - ED Quick Triage: Are You no Have You Given In The Last 6 Weeksno Are You Currently Breastfeedingno The patient and/or guardian verbally acknowledges placement for services into the following (when Urgent Care Service hours are operating):emergency department Chart Review: ARRIVAL INFORMATION Mode of Arrival: private vehicle CHIEF COMPLAINT GARDENIA KEYES is a Female patient with a chief complaint of chest pain (To ED per wheelchair with c/o having body aches at work and now having some midsternal CP that is worse with inhalation. She also reports having high BP reading at work.). Triage Date/Time: 05-Jan-2021 13:35 FEI: 2 Pain Rating (0-10): 6 = Moderate Pain location: mid sternal CP Vital Signs: Temperature: 98.2F ( 36.7C) taken temporal Blood Pressure: 167/105 Mean: Heart Rate: 108 Respiratory Rate: 16 Pulse Oximetry: 100% on room air, no respiratory support. Weight: 154.3 pounds. Calculated 70.0 kg. Imboden Coma Scale: Best Eye Response: (E4) spontaneous Best Motor Response: (M6) obeys commands Best Verbal Response: (V5) oriented Imboden Score: 15 Cough lasting greater than 3 weeks: no Allergies: no Mask applied: yes Last menstrual period: 19-Dec-2020 Patient has homicidal thoughts: no Symptoms Are POSITIVE For: anxiety Symptoms Are Negative For: chills, diaphoresis, dyspnea, headache, loss of consciousness, nausea, numbness, pain, tingling and weakness Activity At Onset: Work Area Of Chest Pain: Sternal Region Risk Screens Suicide Risk Screen In the Past Month: Have you wished you were or wished you could go to sleep and not wake up no In the Past Month: Have you had any actual thoughts of killing yourself no In Your Lifetime: Have you ever done anything, started to do anything, or prepared to do anything to end your life no Liu Fall Scale Screening Has the patient fallen before (or is the patient in the ED as a result of a fall) has not had a fall Does the patient have an impaired gait does not have impaired gait Is the patient cognitively impaired not cognitively impaired Interventions: Noe Fall Interventions: LOW INTERVENTIONS: *patient oriented to surroundings and call system, * patient/family falls education completed and documented, *patients fall status communicated during bedside handoff, *whiteboard updated, *mode of toileting discussed with patient, *bed in low position with brakes locked, *call light in reach, * non-skid footwear TRAVEL HISTORY Travel History Coronavirus Screening: no exposure or symptoms Travel Exposure History: NO travel to International locations in the past 30 days PAIN Pain Scale Used: SHALA Pain Rating (0-10): 6 = Moderate Past Medical History: Past Medical History Reviewedyes asthma: Past Medical History, Active Electronic Signatures: Clary Paez (RN) (Signed 05-Jan-2021 13:52) Entered: Risk Screens, Pain, Travel History, Chart Review, Scores, Past Medical History Authored: Quick Triage, Risk Screens, Pain, Travel History, Chart Review, Scores, Past Medical History Last Updated: 05-Jan-2021 13:52 by Clary Paez (ZAFAR) Normal [facility] VARICELLA ZOSTER IGG ABon VARICELLA ZOSTER IGG AB Positive Normal NEGATIVE [facility] Comment on above: Order Comment: NO FA X ON ORDER Result Comment: INTE RPRETATIVE COMMENT NEGATIVE: No IgG antibodies specific to VZV detected. It is likely that the patient has not had a previous exposure to VZV through infection or vaccination. Alternatively, the patient may have been exposed to VZV but a failure to respond may indicate immunodeficiency. EQUIVOCAL:Equivocal results; obtain additional sample for retesting. POSITIVE: IgG antibody to VZV detected. This may indicate that the patient was exposed to VZV through infection or vaccination. The interpretation of serological tests should take into account the immunological status of the patient. Test results for patients, including immunocompromised patients, neonates, and pediatric patients, reflect their capacity to respond immunologically to the virus as well as their exposure to the pathogen. Patients treated with IVIG may demonstrate altered results in serological assays. Performed By: #### V JADE #### [facility] [address] [place] [address] HEPATITIS A AB-IGMon 021 HEPATITIS A AB-IGM Non-Reactive Normal NONREACTIVE [facility] Comment on above: Order Comment: Phys Name DAVID HERNANDEZ Phys Address Phone # [phone] Fax #[phone] Result Comment: Biot in interference may cause falsely decreased results. Patients taking a Biotin dose of up to 5 mg/day should refrain from taking Biotin for 24 hours before sample collection. Providers may contact their local laboratory for further information. Performed By: #### H AVM3 #### [facility] [address] [place], [place] HEPATITIS B SURF ABon 2020 HEP B SURF AB >1000.0 Normal <10 [facility] Comment on above: Order Comment: Phys Name DAVID HERNANDEZ Phys Address Phone # [phone] Fax #[phone] Result Comment: INTE RPRETIVE CRITERIA: <10 mIU/mL....NONREACTIVE >=10 mIU/mL...REACTIVE . Biotin interference may cause falsely decreased results. Patients taking a Biotin dose of up to 5 mg/day should refrain from taking Biotin for 24 hours before sample collection. Providers may contact their local laboratory for further information. Performed By: #### H BAB3 #### [facility] [address] [place], [place] HEPATITIS B SURFACE AGon HEP.B SURFACE AG Non-Reactive Normal NONREACTIVE [facility] Comment on above: Order Comment: Phys Name DAVID HERNANDEZ Phys Address Phone # [phone] Fax #[phone] Result Comment: Biot in interference may cause falsely decreased results. Patients taking a Biotin dose of up to 5 mg/day should refrain from taking Biotin for 24 hours before sample collection. Providers may contact their local laboratory for further information. Performed By: #### H BSAG #### [facility] [address] [place], [place] HEPATITIS B SURF ABon 2020 Lab Specimen Source Normal [facility] Comment on above: Order Comment: Phys Name DAVID HERNANDEZ Phys Address Phone # [phone] Fax #[phone] Performed By: #### H BAB3 #### [facility] [address] [place], [place] Performed By: #### H AVM3 #### [facility] [address] [place], [place] Performed By: #### H BSAG #### [facility] [address] [place], [place] .Manual Abson 04-26-2018 Basophil Abs Man 0.0 10x3/ Normal 0.0-0.2 [facility] Comment on above: Order Comment: Order Added by Discern Expert. Performed By: #### 3 [id number] #### DHEERAJ [address] [place] [address] Eos Abs Man 0.0 10x3/ Normal 0.0-0.5 [facility] Comment on above: Order Comment: Order Added by Discern Expert. Performed By: #### 3 [id number] #### DHEERAJ [address] [place] [address] Lymphocytes #/vol (Bld) 0.3 10x3/ Low 1.2-3.4 [facility] Comment on above: Order Comment: Order Added by Cristal Expert. Performed By: #### 3 [id number] #### DHEERAJ [address] [place] [address] Owsley Abs Man 0.2 10x3/ Normal 0.0-0.7 [facility] Comment on above: Order Comment: Order Added by Cristal Expert. Performed By: #### 3 [id number] #### DHEERAJ [address] [place] [address] Segs Abs Man 6.4 10x3/ Normal 1.4-6.5 [facility] Comment on above: Order Comment: Order Added by Cristal Expert. Performed By: #### 3 [id number] #### DHEERAJ [address] [place] [address] BMPon 04-26-2018 Anion gap molar conc 11 mmol/L Normal 10-20 [facility] Comment on above: Performed By: #### 2 [id number] #### [facility] [employer] [facility] [place] [address] Calcium mass conc 9.0 mg/dL Normal 8.6-10.3 [facility] Comment on above: Performed By: #### 2 [id number] #### [facility] [employer] [address] [place] [address] Chloride molar conc 106 mmol/L Normal 98-107 [facility] Comment on above: Performed By: #### 2 [id number] #### DHEERAJ [employer] [address] [place] [address] CO2 molar conc 24.0 mmol/L Normal 21.0-32.0 [facility] Comment on above: Performed By: #### 2 [id number] #### DHEERAJ [employer] [address] [place] [address] Creatinine mass conc 0.7 mg/dL Normal 0.5-1.1 [facility] Comment on above: Performed By: #### 2 [id number] #### DHEERAJ [employer] [address] [place] [address] Glucose mass conc 103 mg/dL High 70-99 [facility] Comment on above: Performed By: #### 2 [id number] #### DHEERAJ [employer] [address] [place] [id number] Potassium molar conc 4.1 mmol/L Normal 3.5-5.3 [facility] Comment on above: Performed By: #### 2 [id number] #### DHEERAJ [employer] [address] [place] [address] Sodium molar conc 137 mmol/L Normal 136-145 [facility] Comment on above: Performed By: #### 2 [id number] #### DHEERAJ [employer] [address] [place], [place] [id number] Urea nitrogen mass conc 17 mg/dL Normal 6-23 [facility] Comment on above: Performed By: #### 2 [id number] #### DHEERAJ [employer] [address] [place] [address] 26[address] Urea nitrogen/Creatinine mass ratio 24.3 ratio Normal 5.4-30.0 [facility] Comment on above: Performed By: #### 2 [id number] #### DHEERAJ [employer] [address] [place] [address] CBC w/ Auto Diffon 9 Erythrocyte distribution width Ratio (RBC) 14.5 % Normal 11.5-14.5 [facility] Comment on above: Performed By: #### 2 [id number] #### DHEERAJ RemHemo [address] [place] [address] Hematocrit Volume Fraction (Bld) 41.7 % Normal 36.0-48.0 [facility] Comment on above: Performed By: #### 2 [id number] #### DHEERAJ RemHemo [address] [place] [address] Hemoglobin mass conc (Bld) 13.5 g/dL Normal 12.0-16.0 [facility] Comment on above: Performed By: #### 2 [id number] #### DHEERAJ RemHemo [address] [place] [address] MCH Entitic mass (RBC) 26.2 pg Low 27.0-31.0 [facility] Comment on above: Performed By: #### 2 [id number] #### DHEERAJ RemHemo [address] [place] [address] MCHC mass conc (RBC) 32.3 g/dL Low 33.0-37.0 [facility] Comment on above: Performed By: #### 2 [id number] #### DHEERAJ RemHemo [address] [place] [address] MCV Entitic volume (RBC) 81.1 fL Normal 78.0-100.0 [facility] Comment on above: Performed By: #### 2 [id number] #### DHEERAJ RemHemo [address] [place] [address] Platelet mean volume Entitic volume (Bld) 7.4 fL Normal 7.4-11.0 [facility] Comment on above: Performed By: #### 2 [id number] #### DHEERAJ RemHemo [address] [place] [address] Platelets #/vol (Bld) 232 E3/mcL Normal 130-400 [facility] Comment on above: Performed By: #### 2 [id number] #### DHEERAJ RemHemo [address] [place] [address] RBC #/vol (Bld) 5.15 E6/mcL Normal 3.90-5.40 [facility] Comment on above: Performed By: #### 2 [id number] #### DHEERAJ RemHemo [address] [place] [address] WBC #/vol (Bld) 7.4 E3/mcL Normal 3.6-11.0 [facility] Comment on above: Performed By: #### 2 [id number] #### DHEERAJ RemHemo [address] [place] [address] Manual Diffon 04-26-2018 Band form neutrophils/100 WBC (Bld) 7 High 0-1 [facility] Comment on above: Order Comment: Order Added by Discern Expert. Performed By: #### 2 [id number] #### DHEERAJ RemHemo [address] [place] [address] Basophils/100 WBC (Bld) 0 % Normal 0-1 [facility] Comment on above: Order Comment: Order Added by Discern Expert. Performed By: #### 2 [id number] #### DHEERAJ RemHemo [address] [place] [address] Eosinophils/100 WBC (Bld) 0 % Normal 0-5 [facility] Comment on above: Order Comment: Order Added by Discern Expert. Performed By: #### 2 [id number] #### DHEERAJ RemHemo [address] [place] [address] Lymphocytes/100 WBC (Bld) 4 % Low 14-48 [facility] Comment on above: Order Comment: Order Added by Discern Expert. Performed By: #### 2 [id number] #### DHEERAJ RemHemo [address] [place] [address] Monocytes/100 WBC (Bld) 3 % Normal 1-11 [facility] Comment on above: Order Comment: Order Added by Discern Expert. Performed By: #### 2 [id number] #### DHEERAJ RemHemo [address] [place] [address] RBC morphology finding Nom (Bld) NORMAL Normal [facility] Comment on above: Order Comment: Order Added by Discern Expert. Performed By: #### 2 [id number] #### DHEERAJ RemHemo [address] [place] [address] Segs Man 86 % High 37-75 [facility] Comment on above: Order Comment: Order Added by Discern Expert. Performed By: #### 2 [id number] #### DHEERAJ RemHemo [address] [place] [address] UA Completeon 04-26-2018 Color Nom (U) Yellow Normal Yellow [facility] Comment on above: Performed By: #### 8 [id number] #### DHEERAJ Urinalysis Automated Subsection [address] [place] [address] Glucose mass conc (U) Negative Normal Negative [facility] Comment on above: Performed By: #### 8 [id number] #### DHEERAJ Urinalysis Automated Subsection [facility] [place] [address] Ketones Ql (U) 1+ Abnormal Negative [facility] Comment on above: Performed By: #### 8 [id number] #### DHEERAJ Urinalysis Automated Subsection [facility] [place] [address] RBC #/vol (U) 0-3 Normal 0-3 [facility] Comment on above: Performed By: #### 8 [id number] #### DHEERAJ Urinalysis Automated Subsection [facility] [place] [address] UA Blood 2+ Abnormal Negative [facility] Comment on above: Performed By: #### 8 [id number] #### DHEERAJ Urinalysis Automated Subsection [address] [place] [address] UA Bacteria Trace Abnormal None [facility] Comment on above: Performed By: #### 8 [id number] #### DHEERAJ Urinalysis Automated Subsection [facility] [place] [address] UA Clarity SltCloudy Abnormal Clear [facility] Comment on above: Performed By: #### 8 [id number] #### DHEERAJ Urinalysis Automated Subsection [facility] [place] [address] UA Leuk Est Trace Normal Negative [facility] Comment on above: Performed By: #### 8 [id number] #### DHEERAJ Urinalysis Automated Subsection [facility] [place] [address] UA Mucous Occasional Abnormal Trace [facility] Comment on above: Performed By: #### 8 [id number] #### DHEERAJ Urinalysis Automated Subsection [facility] [place] [address] UA Nitrite Negative Normal Negative [facility] Comment on above: Performed By: #### 8 [id number] #### DHEERAJ Urinalysis Automated Subsection [facility] [place] [address] UA pH 5.0 Normal 4.6-8.0 [facility] Comment on above: Performed By: #### 8 [id number] #### DHEERAJ Urinalysis Automated Subsection [address] [place] [address] UA Protein Negative Normal Negative [facility] Comment on above: Performed By: #### 8 [id number] #### DHEERAJ Urinalysis Automated Subsection [address] [place] [address] UA Spec Grav 1.027 Normal 1.003-1.030 [facility] Comment on above: Performed By: #### 8 [id number] #### DHEERAJ Urinalysis Automated Subsection [address] [place] [address] UA Squam Epithelial 5-10 Abnormal 0-5 [facility] Comment on above: Performed By: #### 8 [id number] #### DHEERAJ Urinalysis Automated Subsection [address] [place] [address] UA Urobilinogen Negative Normal [facility] Comment on above: Result Comment: Due to a manufacturing issue, low positive urobilinogen results may be fasely positive. Correlate with urine bilirubin and additional clinical/laboratory findings to assess the risk of hemolytic anemia or liver disease. If clinically indicated, repeat testing with an alternate method is available by contacting the laboratory within 24 hours. Performed By: #### 8 [id number] #### DHEERAJ Urinalysis Automated Subsection [address] [place] [address] UA WBC 0-5 Normal 0-5 [facility] Comment on above: Performed By: #### 8 [id number] #### DHEERAJ Urinalysis Automated Subsection [address] [place] [address] Urobilinogen Qn (U) Negative Normal Negative [facility] Comment on above: Performed By: #### 8 [id number] #### DHEERAJ Urinalysis Automated Subsection [address] [place] [address] eGFRon 04-26-2018 GFR/1.73 sq M predicted among non-blacks MDRD vol rate/area (S/P/Bld) mL/min/{1.73_m2} Normal [facility] Comment on above: Order Comment: Order added by Discern Expert. Performed By: #### 1 [id number] #### DHEERAJ [employer] [address] [place] [address] zzplt morphon 04-26-2018 Platelet morphology finding Nom (Bld) NORMAL Normal [facility] Comment on above: Performed By: #### 9 [id number] #### DHEERAJ RemHemo [address] [place] [address] Platelets #/vol (Bld) NORMAL Normal [facility] Comment on above: Performed By: #### 9 [id number] #### DHEERAJ RemHemo [address] [place] [address] CT Chest w/o Contraston 08-09 CT Chest w/o Contrast Patient Name: GARDENIA KEYES CT Exam Date/Time 08/17/2017 15:58:[address] Chest w/o Contrast Ordering Physician JOCELYN MOSER Accession Number [id number] CPT4 Codes 76970 (CT Chest w/o Contrast) Reason For Exam f/u rt pulmonary nodule Report CLINICAL INDICATION: Lung nodule Serial axial CT images of the chest were acquired without administration of intravenous contrast. Coronal and sagittal reformatted images were also made available for interpretation. COMPARISON: 02/25/2017. FINDINGS: Elongated density measuring 0.7 cm in length along the right minor fissure is stable and shown image 136 of series 3. No other lung nodules. No pleural effusions or focal areas of consolidation. Trachea and major bronchial structures are normal in caliber. No mediastinal adenopathy. Soft tissue fullness in the anterior mediastinum is similar to the prior CT examination and most likely represents residual thymic tissue in a patient of this age. Hilar contours are stable. No axillary adenopathy Images of the upper abdomen show no discrete adrenal lesions. IMPRESSION: Stable appearance of the 7 mm nodule along the minor fissure. Lung rads category two: Benign. Follow-up CT examination advised in 12 months : Report Dictated on Final Dictating Physician: MD KINNEY LAURA Signed Date and Time: 08/18/2017 10:21 am Signed by: MD KINNEY LAURA Transcribed Date and Time: 08/18/2017 10:22 Normal [facility] HCG,Urine Qualon 08-17-2017 HCG.beta subunit ( test) Ql (U) Negative Normal Negative [facility] Comment on above: Result Comment: Preg danilo is the most common reason for HCG in urine, althoughchoriocarcinoma, hydatidiform mole, and certain nontropho-blastic malignancies also result in detectable urinary HCGlevels. Sensitivity = 20mIU/mL. Performed By: #### H CGUR ####[employer] [facility] [place] [address] CTA Chest w/ + w/o Contrasto n 02-25-2017 CTA Chest w/ + w/o Contrast Patient Name: GARDENIA KEYES CT Exam Date/Time 02/25/2017 18:08:47 EST Exam CTA Chest w/ + w/o Contrast Ordering Physician JOCELYN MOSER Accession Number [id number] CPT4 Codes 72083 (), Q9967 () Reason For Exam syncope and collapse Report CT ANGIOGRAM CHEST CLINICAL: Syncope and collapse COMPARISON: None available CT angiogram imaging of the chest was performed following 100 mL of Isovue- 370. Additional, 3-dimensional surface shaded reconstruction was performed by the radiologist at time of dictation. FINDINGS: No evidence of acute central pulmonary embolism involving the pulmonary arterial trunk, the right or left main pulmonary artery distributions or the segmental pulmonary artery branch vessels. Please note that the assessment of the subsegmental distributions is somewhat limited. Heart size is within limits. No abnormal pericardial effusion. The trachea and mainstem bronchi are patent. The thoracic aorta is normal in caliber. No significantly enlarged mediastinal or hilar adenopathy. Small amount of residual thymus tissue is seen within the anterior mediastinum. Few shotty axillary lymph nodes, without significantly enlarged adenopathy noted. The lungs are without pleural effusion, pneumothorax or focal consolidation identified. There is an elongated nodular appearing density, pleural-based, along the minor fissure anteriorly seen on image 127 of series 4 measuring approximately 0.7 cm in greatest axial dimension. Within the partially included upper abdomen, no acute process is identified. Adrenals appear within limits. Small amount of contrast material is seen refluxing into the inferior vena cava and hepatic veins. Osseous structures appear grossly intact. IMPRESSION: No evidence of acute central pulmonary embolism. Small right lung nodular density present along the minor fissure, measuring 0.7 cm. This may represent a true lung parenchymal nodule versus a focus of pleural thickening. Follow-up is recommended as below. 2017 - UPDATED FLEISCHNER SOCIETY GUIDELINES FOR MANAGEMENT OF SMALL PULMONARY NODULES DETECTED ON CT Note: The Fleischner society pulmonary nodule recommendations are for the follow-up and management of pulmonary nodules smaller than 8 mm detected incidentally in patients >35 years on non-screening CT. Recommendations do not apply for lung cancer screening, patients with immunosuppression or with known cancer. Dimensions are average of long and short axis rounded to the millimeter SOLID NODULES Solitary nodule size: <6 mm *\X09\low risk patients: no follow-up needed *\X09\high risk patients: optional CT at 12 months Solitary nodule size: 6-8 mm *\X09\low risk patients: follow-up at 6-12 months, then consider further follow-up at 18-24 months *\X09\high risk patients: initial follow-up CT at 6-12 months and then at 18-24 months if no change Solitary nodule size: >8 mm *\X09\either low or high risk patients *\X09\consider follow-up CT at 3 months, and/or CT-PET, and/or biopsy Multiple nodules size: <6 mm *\X09\low risk patients: no routine follow-up *\X09\high risk patients: optional CT at 12 months Multiple nodules size: 6-8 mm *\X09\low risk patients: follow-up at 3-6 months, then consider further follow-up at 18-24 months *\X09\high risk patients: follow-up at 3-6 months, then at 18-24 months if no change Multiple nodules size: >8 mm *\X09\low risk patients: follow-up at 3-6 months, then consider further follow-up at 18-24 months *\X09\high risk patients: follow-up at 3-6 months, then at 18-24 months if no change NOTE: newly detected indeterminate nodule in persons 35 years of age or older. *\X09\LOW RISK PATIENTS: minimal or absent history of smoking and or other known risk factors *\X09\HIGH RISK PATIENTS: history of smoking or of other known risk factors (e.g. first degree relative with lung cancer, or exposure to asbestos, radon, uranium) *\X09\if a nodule up to 8 mm is partly solid or is ground glass further follow-up is required after 24 months to exclude possible slow growing adenocarcinoma (ARYAN) SUBSOLID NODULES Solitary pure ground-glass nodule *\X09\nodule size: <6mm *\X09\no CT follow-up required *\X09\nodule size: \X2265\6mm *\X09\follow up CT at 6-12 months, then every 2 years until 5 years Solitary part-solid nodule *\X09\nodule size: <6mm *\X09\no CT follow-up required *\X09\nodule size: \X2265\6mm *\X09\follow-up CT at 3-6 months *\X09\if unchanged, and solid component remains <6mm, then annual follow-up for 5 years Multiple subsolid nodules *\X09\nodule size: <6mm *\X09\follow-up CT at 3-6 months *\X09\consider further follow-up at 2 and 4 years if stable *\X09\nodule size: \X2265\6mm *\X09\follow-up CT at 3-6 months *\X09\subsequent management based on the most suspicious nodule(s) Report Dictated on Final Dictating Physician: SHAMAR ODELL Signed Date and Time: 02/25/2017 8:03 pm Signed by: SHAMAR ODELL Transcribed Date and Time: 02/25/2017 8:04 [facility] Vital Signs Date Time Vital Sign Value Performing Clinician Facility 12-19-2024 15:08-0500 Body mass index (BMI) [Ratio] 31.64 kg/m2 Roxann Zafar [employer] Work Phone: [facility] 12-19-2024 15:08-0500 Body weight 78.47 kg Roxann Zafar [employer] Work Phone: [facility] 12-19-2024 15:08-0500 Diastolic blood pressure 83 mm[Hg] Roxann Zafar [employer] Work Phone: [facility] 12-19-2024 15:08-0500 Heart rate 90 /min Roxann Zafar [employer] Work Phone: [facility] 12-19-2024 15:08-0500 Systolic blood pressure 122 mm[Hg] Roxann Zafar [employer] Work Phone: [facility] 10-18-2024 10:01-0400 Body height 157.5 cm Kayla Katina [employer] Work Phone: [facility] 10-18-2024 10:01-0400 Body mass index (BMI) [Ratio] 30.75 kg/m2 Kayla Shank [employer] Work Phone: [facility] 10-18-2024 10:01-0400 Body temperature 98.29 [degF] Kayla Shank [employer] Work Phone: [facility] 10-18-2024 10:01-0400 Body weight 76.25 kg Kayla Shank [employer] Work Phone: [facility] 10-18-2024 10:01-0400 Diastolic blood pressure 74 mm[Hg] Kayla Shank [employer] Work Phone: [facility] 10-18-2024 10:01-0400 Heart rate 77 /min Kayla Shank [employer] Work Phone: [facility] 10-18-2024 10:01-0400 Respiratory rate 16 /min Kayla Shank [employer] Work Phone: [facility] 10-18-2024 10:01-0400 SaO2% (BldA) [Mass fraction] 98 % Kayla Shank [employer] Work Phone: [facility] 10-18-2024 10:01-0400 Systolic blood pressure 122 mm[Hg] Kayla Shank [employer] Work Phone: [facility] 05-19-2024 13:06-0400 Body height 157.5 cm Stephen Perez MD Work Phone: [facility] 05-19-2024 13:06-0400 Body mass index (BMI) [Ratio] 29.12 kg/m2 Stephen Perez MD Work Phone: [facility] 05-19-2024 13:06-0400 Body temperature 98.29 [degF] Stephen Perez MD Work Phone: [facility] 05-19-2024 13:06-0400 Body weight 72.21 kg Stephen Perez MD Work Phone: [facility] 12-22-2023 08:03-0500 Diastolic blood pressure 89 mm[Hg] CJ Hassmann DPM Work Phone: [facility] 12-22-2023 08:03-0500 Heart rate 74 /min CJ Hassmann DPM Work Phone: [facility] 12-22-2023 08:03-0500 SaO2% (BldA) [Mass fraction] 98 % CJ Hassmann DPM Work Phone: [facility] 12-22-2023 08:03-0500 Systolic blood pressure 128 mm[Hg] CJ Hassmann DPM Work Phone: [facility] 12-03-2022 16:22-0400 Diastolic blood pressure 96 mm[Hg] No Generic Provider [facility] 12-03-2022 16:22-0400 Heart rate 68 /min No Generic Provider [facility] 12-03-2022 16:22-0400 Respiratory rate 16 /min No Generic Provider [facility] 12-03-2022 16:22-0400 SaO2% (BldA) [Mass fraction] 100 % No Generic Provider [facility] 12-03-2022 16:22-0400 Systolic blood pressure 122 mm[Hg] No Generic Provider [facility] 12-03-2022 14:20-0400 Body height 157.5 cm No Generic Provider [facility] 12-03-2022 14:20-0400 Body mass index (BMI) [Ratio] 30.18 kg/m2 No Generic Provider [facility] 12-03-2022 14:20-0400 Body temperature 98.01 [degF] No Generic Provider [facility] 12-03-2022 14:20-0400 Body weight 74.84 kg No Generic Provider [facility] 09-08-2023 14:42-0400 Diastolic blood pressure 85 mm[Hg] Roxann Zafar [employer] Work Phone: [facility] 10-17-2022 14:42-0400 Heart rate 90 /min Roxann Zafar [employer] Work Phone: [facility] 10-17-2022 14:42-0400 Systolic blood pressure 134 mm[Hg] Roxann Zafar [employer] Work Phone: [facility] 10-17-2022 14:40-0400 Body mass index (BMI) [Ratio] 29.56 kg/m2 Roxann Zafar [employer] Work Phone: [facility] 10-17-2022 14:40-0400 Body weight 73.3 kg Roxann Zafar [employer] Work Phone: [facility] 10-04-2021 11:56-0400 Body mass index (BMI) [Ratio] 29.45 kg/m2 Nata Tony MD Work Phone: [facility] 10-04-2021 11:56-0400 Body weight 73.03 kg Nata Tony MD Work Phone: [facility] 10-04-2021 11:56-0400 Diastolic blood pressure 78 mm[Hg] Nata Tony MD Work Phone: [facility] 10-04-2021 11:56-0400 Heart rate 60 /min Nata Tony MD Work Phone: [facility] 10-04-2021 11:56-0400 Systolic blood pressure 119 mm[Hg] Nata Tony MD Work Phone: [facility] 08-26-2021 10:42-0400 Body height 157.5 cm Nata Tony MD Work Phone: [facility] 08-26-2021 10:42-0400 Body mass index (BMI) [Ratio] 29.08 kg/m2 Nata Tony MD Work Phone: [facility] 08-26-2021 10:42-0400 Body weight 72.12 kg Nata Tony MD Work Phone: [facility] 08-26-2021 10:42-0400 Diastolic blood pressure 79 mm[Hg] Nata Tony MD Work Phone: [facility] 08-26-2021 10:42-0400 Heart rate 60 /min Nata Tony MD Work Phone: [facility] 08-26-2021 10:42-0400 Systolic blood pressure 120 mm[Hg] Nata Tony MD Work Phone: [facility] 08-05-2021 14:26-0400 Body height 157.5 cm Hortensia Davis MD Work Phone: [facility] 08-05-2021 14:26-0400 Body mass index (BMI) [Ratio] 28.72 kg/m2 Hortensia Davis MD Work Phone: [facility] 08-05-2021 14:26-0400 Body temperature 97.81 [degF] Hortensia Davis MD Work Phone: [facility] 08-05-2021 14:26-0400 Body weight 71.22 kg Hortensia Davis MD Work Phone: [facility] 08-05-2021 14:26-0400 Diastolic blood pressure 89 mm[Hg] Hortensia Davis MD Work Phone: [facility] 08-05-2021 14:26-0400 Heart rate 96 /min Hortensia Davis MD Work Phone: [facility] 08-05-2021 14:26-0400 Respiratory rate 16 /min Hortensia Davis MD Work Phone: [facility] 08-05-2021 14:26-0400 SaO2% (BldA) [Mass fraction] 99 % Hortensia Davis MD Work Phone: [facility] 08-05-2021 14:26-0400 Systolic blood pressure 130 mm[Hg] Hortensia Davis MD Work Phone: [facility] Encounters Encounter Date Encounter Type Care Provider Facility Start: 12-19-2024 End: 12-19-2024 Office outpatient visit 15 minutes Roxann Zafar [employer] Work Phone: [facility] Comment on above: Graves disease (Prim yessi Dx) Start: 12-19-2024 End: 12-19-2024 ambulatory KAYLA AMBRIZ [facility] Start: 11-30-2024 End: 12-04-2024 ambulatory NOT RECORDED PHYSICIAN Facility:[facility] Start: 11-30-2024 End: 12-04-2024 Outreach Lab CHRISTIANO ESQUIVEL MD [facility] Start: 11-01-2024 End: 11-01-2024 ambulatory [facility] Start: 10-31-2024 End: 10-31-2024 ambulatory [facility] Start: 10-20-2024 End: 12-20-2024 Follow-up encounter Kayla Ambriz [employer] Work Phone: [facility] Comment on above: Iron Study with Ferr itin, Comprehensive Metabolic Panel, CBC and Differential Start: 10-20-2024 ambulatory KAYLA AMBRIZ [facility] Start: 10-18-2024 End: 10-18-2024 Initial preventive medicine new pt age 18-39yrs Kayla Ambriz [employer]ULT[employer] Work Phone: [facility] Comment on above: Healthcare maintenan ce (Primary Dx); Iron deficiency anemia, unspecified iron deficiency anemia type; Screening for endocrine, metabolic, and immunity disorder; Graves disease Start: 10-18-2024 End: 10-18-2024 Patient encounter status Kayla Ambriz [employer]ULT[employer] Work Phone: [facility] Work Phone: Start: 10-18-2024 End: 10-18-2024 ambulatory KAYLA AMBRIZ [facility] Start: 09-08-2024 End: 11-08-2024 Follow-up encounter Roxann Zafar [employer]ANT Work Phone: [facility] Comment on above: T3, T4, Free, TSH Start: 08-21-2024 End: 08-22-2024 Emergency department patient visit MICHELA EASTMAN [facility] Start: 05-19-2024 End: 05-23-2024 ambulatory PHYSICIAN NO [facility] Start: 05-19-2024 End: 05-19-2024 Office outpatient new 30 minutes Stephen Perez MD Work Phone: [facility] Comment on above: Disorder of both eus tachian tubes (Primary Dx); Acute viral disease; Conductive hearing loss of right ear with unrestricted hearing of left ear Start: 05-19-2024 End: 05-19-2024 [facility] Start: 12-25-[facility]23 ambulatory PHYSICIAN NO [facility] Start: 12-22-2023 End: 12-22-2023 Office outpatient new 30 minutes HARISH KCM Work Phone: [facility] Comment on above: Onychomycosis (Prima ry Dx); Onychodystrophy; Bunion; Gastrocnemius equinus, unspecified laterality; Tinea pedis, unspecified laterality Start: 11-09-2023 End: 11-13-2023 ambulatory PHYSICIAN [facility] Start: 12-16-2022 End: 12-17-2022 ambulatory ELIF BOCANEGRA Facility:B Start: 12-16-2022 End: 12-17-2022 ambulatory CESIA KENNEDY MD Facility:B Start: 12-03-2022 End: 12-03-2022 Emergency department patient visit NO ASSIGNED PCP GENERIC PROVIDER [facility] Comment on above: Laceration of left k nee, initial encounter (Primary Dx) Start: 10-26-2022 End: 10-26-2022 Emergency department patient visit HORTENSIA DAVIS [facility] Start: 10-17-2022 End: 10-17-2022 Office outpatient visit 15 minutes Roxann Zafar CNP Work Phone: [facility] Endocrinology [place] Comment on above: Graves disease (Prim yessi Dx) Start: 09-24-2022 Orders Only Hortensia Davis MD Work Phone: [facility] Comment on above: Encounter for screen ing for respiratory tuberculosis (Primary Dx) Start: 05-08-2022 ambulatory No Pcp [facility]AVANAH LEZAMA [facility] Start: 05-08-2022 Follow-up encounter No Pcp Merlin Lezama Comment on above: Follow Up Start: 12-24-2021 Documentation procedure Hortensia Davis MD Work Phone: [facility] Start: 12-09-2021 ambulatory [facility] Start: 11-25-2021 End: 11-25-2021 Emergency department patient visit HORTENSIA DAVIS [facility] Start: 10-04-2021 End: 10-04-2021 Office outpatient visit 15 minutes Nata Tony MD Work Phone: [facility] Endocrinology [place] Comment on above: Graves disease (Prim yessi Dx) Start: 09-23-2021 Orders Only Hortensia Davis MD Work Phone: [facility] Start: 08-26-2021 End: 08-26-2021 Office outpatient new 30 minutes Hortensia Davis MD Work Phone: [facility] Comment on above: Graves disease (Prim yessi Dx); Subclinical hyperthyroidism Start: 08-07-2021 Orders Only Hortensia Davis MD Work Phone: [facility] Comment on above: Subclinical hyperthy roidism (Primary Dx); Iron deficiency anemia, unspecified iron deficiency anemia type Subclinical hyperthy roidism (Primary Dx) Start: 08-06-2021 Orders Only Hortensia Davis MD Work Phone: [facility] Comment on above: Weight gain (Primary Dx) Start: 08-05-2021 End: 08-05-2021 Office outpatient new 30 minutes Hortensia Davis MD Work Phone: [facility] Comment on above: Weight gain (Primary Dx); Encounter for vaccination; PCOS (polycystic ovarian syndrome) Start: 06-03-2021 End: 06-03-2021 Patient encounter procedure [facility], [place] wellness director Off Start: 05-26-2021 End: 05-26-2021 Patient encounter procedure [facility] Start: 04-26-2018 End: 04-26-2018 Emergency department patient visit Amada Orellana Facility:[facility] Start: 08-17-2017 Ambulatory Jocelyn Wong [facility] Start: 02-25-2017 Ambulatory Jocelyn Wong [facility] Procedures Date Procedure Procedure Detail Performing Clinician Start: 12-03-2022 XR KNEE LEFT 1-2 VIEWS NO GENERIC PROVIDER Start: 12-03-2022 Radiologic examinati on knee 1/2 views Suyapa Moss PA-C Work Phone: Start: 08-06-2021 Adult depression scr eening assessment Hortensia Davis MD Work Phone: None (qualifier value) YULISA ESQUIVEL MD Plan of Treatment Date Care Activity Detail Author Start: 2044 Administration of herpes zoster vaccine Zoster Vaccines (1 of 2) [facility] Start: 2044 Zoster Vaccines (1 of 2) Zoster Vaccines (1 of 2) [facility] Start: 12-03-2032 Tetanus vaccination Tetanus: Every 10yrs [facility] Start: 12-03-2032 Vaccination for diphtheria, pertussis, and tetanus Tetanus/Diphtheria/Pertu ssis (4 - Td or Tdap) [facility] Start: 10-05-2029 DTaP/Tdap/Td Vaccines (3 - Td or Tdap) DTaP/Tdap/Td Vaccines (3 - Td or Tdap) [facility] Start: 10-05-2029 Tetanus vaccination Tetanus: Every 10yrs [facility] Start: 10-23-2025 End: 10-23-2025 Patient encounter procedure 10/23/2025 8:00 AM EDT Office Visit [facility] [address] [place] [phone] Kayla Ambriz CNP [address] [facility] [address] [place] [address] [facility] Start: 10-18-2025 Depression screening using PHQ-9 (Patient Health Questionnaire 9) score Depression Screening/Follow-Up (PHQ-2/9) [facility] Start: 10-18-2025 History and physical examination, annual for health maintenance Wellness Visit [facility] Start: 01-16-2025 End: 12-19-2025 Thyrotropin [Units/volume] in Serum or Plasma TSH Lab Routine Graves disease Expected: 01/16/2025, Expires: 12/19/2025 [facility] Comment on above: Expected: 01/16/2025, Expires: Start: 01-16-2025 End: 12-19-2025 Thyrotropin binding inhibitory immunoglobulins measurement Thyrotropin Receptor Antibody Lab Routine Graves disease Expected: 01/16/2025, Expires: 12/19/2025 [facility] Comment on above: Expected: 01/16/2025, Expires: Start: 01-16-2025 End: 12-20-2025 Thyroxine (T4) free [Mass/volume] in Serum or Plasma T4, Free Lab Routine Graves disease Expected: 01/16/2025, Expires: 12/20/2025 [facility] Work Phone: Comment on above: Expected: 01/16/2025, Expires: Start: 01-16-2025 End: 01-16-2025 Patient encounter procedure 01/16/2025 8:30 AM EST Office Visit [facility] [place] [address] [place] [phone] Roxann Zafar, [address] [address] [facility] [place] Start: 01-02-2025 End: 12-20-2025 Thyrotropin [Units/volume] in Serum or Plasma TSH Lab Routine Graves disease Expected: 01/02/2025, Expires: 12/20/2025 [facility] Comment on above: Expected: 01/02/2025, Expires: Start: 10-10-2024 COVID-19 Vaccine () COVID-19 Vaccine () [facility] Start: 10-10-2024 COVID-19 Vaccine ( season) COVID-19 Vaccine ( season) [facility] Start: 10-10-2024 Influenza vaccination [facility] Start: 2024 Screening for malignant neoplasm of cervix [facility] Start: 03-01-2024 End: 03-01-2024 Patient encounter procedure 03/01/2024 9:00 AM EST Office Visit [facility] [address] [place] [address] [place] [phone] Roxann Zafar, JAMEL [address] [place] [phone] [facility] Start: 02-09-2024 End: 02-09-2024 Patient encounter procedure 02/09/2024 7:30 AM EST Office Visit [facility] [address] [place] [phone] HARISH Bryan, DPM [address] [place] [address] [facility] Start: 10-11-2023 COVID-19 Vaccine ( season) COVID-19 Vaccine ( season) [facility] Start: 10-11-2023 Influenza vaccination Influenza Vaccine (#1) [facility] Start: 12-19-2022 End: 12-19-2022 Patient encounter procedure 12/19/2022 8:15 AM EST Office Visit [facility] [place] [address] [place] [phone] Roxann Zafar, JAMEL [address] [place] [address] [facility] [place] Start: 12-10-2022 End: 10-18-2023 Thyrotropin [Units/volume] in Serum or Plasma TSH Lab Routine Graves disease Expected: 12/10/2022, Expires: 10/18/2023 [facility] Comment on above: Expected: 12/10/2022, Expires: 4 Start: 12-10-2022 End: 10-18-2023 Thyroxine (T4) free [Mass/volume] in Serum or Plasma T4, Free Lab Routine Graves disease Expected: 12/10/2022, Expires: 10/18/2023 [facility] Comment on above: Expected: 12/10/2022, Expires: Start: 11-10-2022 End: 10-18-2023 Thyroid stimulating immunoglobulin Thyroid stimulating immunoglobulin Lab Routine Graves disease Expected: 11/10/2022, Expires: 10/18/2023 [facility] Comment on above: Expected: 11/10/2022, Expires: Start: 11-10-2022 End: 10-18-2023 Thyrotropin [Units/volume] in Serum or Plasma TSH Lab Routine Graves disease Expected: 11/10/2022, Expires: 10/18/2023 [facility] Comment on above: Expected: 11/10/2022, Expires: Start: 11-10-2022 End: 10-18-2023 Thyroxine (T4) free [Mass/volume] in Serum or Plasma T4, Free Lab Routine Graves disease Expected: 11/10/2022, Expires: 10/18/2023 [facility] Work Phone: Comment on above: Expected: 11/10/2022, Expires: Start: 10-10-2022 Influenza vaccination [facility] Start: 08-06-2022 Depression screening using PHQ-9 (Patient Health Questionnaire 9) score [facility] Start: 03-31-2022 End: 03-31-2022 Patient encounter procedure 03/31/2022 Office Visit Endocrinology Roxann Zafar, [employer] [address] [place] [address] [facility] [place] Start: 02-09-2022 DEPRESSION ASSESSMENT DEPRESSION ASSESSMENT [facility] Start: 12-24-2021 End: 12-24-2021 Telemedicine consultation with patient 12/24/2021 Telemedicine Telephone Primary Care Hortensia Davis MD [address] [address] [facility] Start: 11-07-2021 End: 08-07-2022 Iron measurement Iron Study with Ferritin Lab Routine Iron deficiency anemia, unspecified iron deficiency anemia type Expected: 11/07/2021, Expires: 08/07/2022 [facility] Work Phone: Comment on above: Expected: 11/07/2021, Expires: Start: 11-04-2021 End: 10-05-2022 Thyrotropin [Units/volume] in Serum or Plasma TSH Lab Routine Graves disease Expected: 11/04/2021 (Approximate), Expires: 10/05/2022 [facility] Comment on above: Expected: 11/04/2021 (Approximate), Expi res: 10/05/2022 Start: 11-04-2021 End: 10-05-2022 Thyroxine (T4) free [Mass/volume] in Serum or Plasma T4, Free Lab Routine Graves disease Expected: 11/04/2021 (Approximate), Expires: 10/05/2022 [facility] Work Phone: Comment on above: Expected: 11/04/2021 (Approximate), Expi res: 10/05/2022 Start: 11-04-2021 End: 11-04-2021 Patient encounter procedure 11/04/2021 Office Visit Primary Care Hortensia Davis MD [address] [address] [facility] Start: 10-10-2021 Influenza vaccination Sequential Influenza Vaccine (#1) [facility] Start: 10-04-2021 End: 10-04-2021 Patient encounter procedure 10/04/2021 Office Visit Endocrinology Nata Tony MD [address] [place] [phone] [facility] [place] Start: 09-23-2021 End: 08-27-2022 Thyrotropin [Units/volume] in Serum or Plasma TSH Lab Routine Graves disease Expected: 09/23/2021 (Approximate), Expires: 08/27/2022 [facility] Comment on above: Expected: 09/23/2021 (Approximate), Expi res: 08/27/2022 Start: 09-23-2021 End: 08-27-2022 Thyroxine (T4) free [Mass/volume] in Serum or Plasma T4, Free Lab Routine Graves disease Expected: 09/23/2021 (Approximate), Expires: 08/27/2022 [facility] Work Phone: Comment on above: Expected: 09/23/2021 (Approximate), Expi res: 08/27/2022 Start: 09-02-2021 Varicella vaccination Varicella Vaccines (2 of 2 - 13+ 2-dose series) [facility] Start: 2021 Vaccination for human papillomavirus HPV Vaccines (1 - 3-dose SCDM series) [facility] Start: 05-11-2015 PAP TESTING PAP TESTING [facility] Start: 05-11-2015 Screening for malignant neoplasm of cervix [facility] Start: 2013 Pneumococcal vaccination Pneumococcal Vaccine (1 of 2 - PCV) [facility] Start: 2013 Urine microalbumin profile DTAP,TDAP,TD (1 - Tdap) [facility] Start: 2012 Hepatitis C screening Hepatitis C Screening [facility] Start: 2012 HIV SCREENING HIV SCREENING [facility] Start: 2009 HIV screening HIV Screening [facility] Start: 2006 Depression screening using PHQ-9 (Patient Health Questionnaire 9) score Depression Screening (PHQ-2/9) [facility] Start: 05-11-1999 COVID-19 Vaccine (#1) COVID-19 Vaccine (#1) [facility] Start: 1997 History and physical examination, annual for health maintenance Wellness Visit [facility] Start: 1994 COVID-19 Vaccine (#1) COVID-19 Vaccine (#1) [facility] Start: 1994 Hepatitis B Vaccines (3 of 3 - 3-dose series) Hepatitis B Vaccines (3 of 3 - 3-dose series) [facility] Start: 1994 IPV Vaccines (2 of 3 - 4-dose series) IPV Vaccines (2 of 3 - 4-dose series) [facility] Start: 1994 HEPATITIS B (1 of 3 - 3-dose series) HEPATITIS B (1 of 3 - 3-dose series) [facility] Start: 1994 HIV screening HIV Screening [facility] Start: 1994 Lipid panel Lipid Panel [facility] Start: 1994 Screening for malignant neoplasm of cervix Pap Smear [facility] Start: 1994 Yearly Adult Physical Yearly Adult Physical [facility] End: 08-06-2022 Anti-thyroid antibody measurement Thyroid Antibody Group Lab Add-On Weight gain 1 Occurrences starting 08/06/2021 until 08/06/2022 [facility] Work Phone: Comment on above: 1 Occurrences starting 08/06/2021 until 08/06/2022 Anti-thyroid antibod y measurement Thyroid Antibody Group Lab Add-On Weight gain 08/05/2021 3:24 PM EDT [facility] End: 10-18-2025 Complete blood count with white cell differential, manual CBC and Differential Lab Routine Iron deficiency anemia, unspecified iron deficiency anemia type Screening for endocrine, metabolic, and immunity disorder 1 Occurrences starting 10/18/2024 until 10/18/2025 [facility] Work Phone: Comment on above: 1 Occurrences starting 10/18/2024 until 10/18/2025 End: 10-18-2025 Comprehensive metabolic 2000 panel - Serum or Plasma Comprehensive Metabolic Panel Lab Routine Screening for endocrine, metabolic, and immunity disorder 1 Occurrences starting 10/18/2024 until 10/18/2025 [facility] Comment on above: 1 Occurrences starting 10/18/2024 until 10/18/2025 End: 08-05-2022 Hemoglobin A1c/Hemoglobin.total in Blood Hemoglobin A1c Lab Routine Weight gain 1 Occurrences starting 08/05/2021 until 08/05/2022 [facility] Work Phone: Comment on above: 1 Occurrences starting 08/05/2021 until 08/05/2022 Hemoglobin A1c/Hemoglobin.total in Blood Hemoglobin A1c Lab Routine Weight gain 08/05/2021 3:24 PM EDT [facility] End: 12-21-2024 Hepatic function 2000 panel - Serum or Plasma Hepatic function panel Lab Routine Onychomycosis Onychodystrophy Tinea pedis, unspecified laterality 1 Occurrences starting 12/22/2023 until 12/21/2024 [facility] Work Phone: Comment on above: 1 Occurrences starting 12/22/2023 until 12/21/2024 End: 10-18-2025 Iron measurement Iron Study with Ferritin Lab Routine Iron deficiency anemia, unspecified iron deficiency anemia type Screening for endocrine, metabolic, and immunity disorder 1 Occurrences starting 10/18/2024 until 10/18/2025 [facility] Comment on above: 1 Occurrences starting 10/18/2024 until 10/18/2025 Procedure on tissue specimen Tissue Exam Pathology and Cytology Routine Onychomycosis Onychodystrophy Tinea pedis, unspecified laterality Ordered: 12/22/2023 [facility] Comment on above: Ordered: 12/22/2023 End: 08-07-2022 Thyroid Stimulating Immunoglobulin Thyroid Stimulating Immunoglobulin Lab Add-On Subclinical hyperthyroidism 1 Occurrences starting 08/07/2021 until 08/07/2022 [facility] Work Phone: Comment on above: 1 Occurrences starting 08/07/2021 until 08/07/2022 Thyroid Stimulating Immunoglobulin Thyroid Stimulating Immunoglobulin Lab Add-On Subclinical hyperthyroidism 08/05/2021 3:24 PM EDT [facility] End: 09-25-2023 Tuberculosis screening M. Tuberculosis by QuantiFERON Lab Routine Encounter for screening for respiratory tuberculosis 1 Occurrences starting 09/24/2022 until 09/25/2023 [facility] Work Phone: Comment on above: 1 Occurrences starting 09/24/2022 until 09/25/2023 Immunizations Immunization Date Immunization Notes Care Provider Fa [facility] 12-03-2022 tetanus toxoid, redu [place] diphtheria toxoid, and acellular pertussis vaccine, adsorbed No Generic Provider [facility] 08-05-2021 measles, mumps and rubella virus vaccine Hortensia Davis MD Work Phone: [facility] 12-09-2020 Seasonal, quadrivale nt, recombinant, injectable influenza vaccine, preservative free Hortensia Davis MD Work Phone: [facility] 12-09-2020 influenza virus vaccine, unspecified formulation No Generic Provider [facility] Work Phone: 06-12-2020 tuberculin skin test ; purified protein derivative solution, intradermal Hortensia Davis MD Work Phone: [facility] 10-10-2019 measles, mumps and rubella virus vaccine Hortensia Davis MD Work Phone: [facility] 10-10-2019 varicella virus vaccine Michelle Davis MD Work Phone: [facility] 10-06-2019 tetanus toxoid, redu [place] diphtheria toxoid, and acellular pertussis vaccine, adsorbed Hortensia Davis MD Work Phone: [facility] 1994 DTP-Haemophilus influenzae type b conjugate vaccine Hortensia Davis MD Work Phone: [facility] 1994 hepatitis B vaccine, pediatric or pediatric/adolescent dosage Hortensia Davis MD Work Phone: [facility] 1994 trivalent poliovirus vaccine, live, oral Hortensia Davis MD Work Phone: [facility] 1994 poliovirus vaccine, unspecified formulation Kayla Ambriz CNP Work Phone: [facility] 1994 hepatitis B vaccine, pediatric or pediatric/adolescent dosage Hortensia Davis MD Work Phone: [facility] Payers Date Payer Category Payer Worker's Compensation [id number] 2024 Worker's Compensation 2022 Unknown [id number] 2022 Unknown [id number] 2021 [facility] UE/PREF/HMO/PPO [id number] 2021 Unknown [id number] 2019 Private Health Insurance [id number] 2018 Unknown 1994 Unknown [id number] 2.16.840.1.913921.3.579. 2.717 1994 Unknown [id number] 2.16.840.1.114812.3.579. 2.902 1994 Unknown [id number] 2.16.840.1.409125.3.579. 2.902 1994 Unknown [id number] 2.16.840.1.183270.3.579. 2.627 1994 Unknown [id number] 2.16.840.1.509129.3.579. 2.627 1994 Unknown [id number] 2.16.840.1.851268.3.579. 2.1243 1994 Unknown [id number] 2.16.840.1.238433.3.579. 2.903 1994 Unknown [id number] 2.16.840.1.219590.3.579. 2.903 1994 Unknown [id number] 2.16.840.1.209404.3.579. 2.903 1994 Unknown [id number] 2.16.840.1.960244.3.579. 2.627 1994 Unknown [id number] 2.16.840.1.757356.3.579. 2.903 1994 Unknown [id number] 2.16.840.1.048326.3.579. 2.903 1994 Unknown [id number] 2.16.840.1.195845.3.579. 2. 1994 Unknown [id number] 2.16.840.1.874343.3.579. 2. 1994 Unknown [id number] 2.16.840.1.592477.3.579. 2. 1994 Unknown [id number] 2.16.840.1.730946.3.579. 2 Private Health Insurance SELF PAY INSURAN CE [id number] Self-pay SELF PAY INSURANCE [id number] Unknown [id number] Social History Date Type Detail Facility Tobacco smoking stat us PAIS Unknown if ever smoked [facility] Work Phone: Start: 1995 Sex Assigned At Female [facility] Start: 08-05-2021 End: 12-02-2022 Tobacco smoking status NHIS Never smoked tobacco [facility] Start: 08-05-2021 End: 10-18-2024 Cigarette pack-years [facility] Start: 08-05-2021 Tobacco use and exposure Smokeless tobacco non-user [facility] Start: 08-05-2021 End: 10-17-2022 Alcohol intake Current drinker of alcohol (finding) [facility] Start: 08-05-2021 History SDOH Alcohol Comment social drinks [facility] Start: 1995 Sex Assigned At Not on file [facility] Start: 07-26-2021 End: 12-03-2022 Exposure to SARS-CoV-2 (event) Not sure [facility] Start: 12-14-2021 End: 12-24-2021 Exposure to SARS-CoV-2 (event) Unable to assess [facility] Start: 12-01-2013 Alcohol intake Current non-drinker of alcohol (finding) [facility] Start: 11-25-2021 End: 10-18-2024 Tobacco use panel [facility] Adult Depression Screening Assessment 6 [facility] Start: 07-19-2021 Gender identity Identifies as female gender (finding) [facility] Start: 07-19-2021 Sexual orientation Heterosexual (finding) [facility] consumption unknown [facility] Work Phone: Start: 12-22-2023 End: 12-19-2024 Alcoholic beverage intake Ex-drinker (finding) [facility] (I/We) worried wheam[place] er (my/our) food would run out before (I/we) got money to buy more. Never true [facility] Start: 10-18-2024 Alcohol Comment social drinks once a month [facility] Sexual Orientation Alvin Daniels Sex Female (finding) Alvin Curtis [facility]ella Start: 10-15-2024 [facility] Clinical Notes 08-05-2021 to 12-19-2024 Patient InstructionsRoxann Zafar CNP - 12/19/2024 3:15 PM Kayla Gil CNP - 10/18/2024 10:00 AM Stephen Duckworth MD - 05/19/2024 1:15 PM EDTPatient Instructions Note Date & Type Note Facility 12-19-2024 Instructions Roxann Zafar CNP - 12/19/2024 3:28 PM EST Labs in 2 weeks and 4 weeks. documented in this encounter [facility] 12-19-2024 Note [facility] [address] ([address]) [facility] [address] [facility] [id number] Chief Complaint: Chief Complaint Patient presents with Graves' Disease History of Present Illness: Gardenia Kevin is a 29 y.o. woman with Graves disease, here for a follow up visit. She has felt very fatigued, sluggish, migraines, poor appetite and nausea with morning sickness. over the past few weeks. TSH <0.005 and FT4 3.37 on 10/14/2023. She underwent IVF and and is now . She is currently on PTU 50 mg TID changed from methimazole 10 mg daily 09/07/24 while pursing IVF. Patient subsequently became and is currently 11w2d. 12/08/22 TSH: <0.01; Free T4: 1.8 TSI: 5.4 Thyroid stimulating immunoglobulin Component Ref Range & Units 11 mo ago 1 yr ago 2 yr ago Thyroid Stimulating Immumoglobulin <=1.3 TSI index 5.4 High 3.4 High CM 5.4 High CM Allergies: Naproxen Current Outpatient Medications Medication Instructions aspirin 81 mg methIMAzole (TAPAZOLE) 10 MG tablet Take 2 (two) tablets (20 mg total) by mouth daily with breakfast AND 1 (one) tablet (10 mg total) after evening meal. vitamin with Ca-Iron-FA 27-1 mg Tab 1 tablet, Daily propylthiouraciL (PTU) 50 mg, Oral, 3 times daily Past Medical History Past Medical History: Diagnosis Date Graves disease PCOS (polycystic ovarian syndrome) Past Surgical History: No past surgical history on file. Family History: Family History Problem Relation Age of Onset Lymphoma Maternal Grandmother Bladder Cancer Maternal Grandfather Social History: Social History Substance and Sexual Activity Alcohol Use Not Currently Alcohol/week: 1.0 standard drink of alcohol Types: 1 Glasses of wine per week Comment: social drinks once a month Tobacco & Smokeless: Tobacco Use Smoking status: Never Smokeless tobacco: Never Last 3 Weights: Wt Readings from Last 3 Encounters: 12/19/24 78.5 kg (173 lb) 10/18/24 76.2 kg (168 lb 1.6 oz) 05/19/24 72.2 kg (159 lb 3.2 oz) Review of Systems All other systems reviewed and are negative. Physical Exam Vitals reviewed. Constitutional: Appearance: Normal appearance. HENT: Head: Normocephalic and atraumatic. Eyes: Extraocular Movements: Extraocular movements intact. Conjunctiva/sclera: Conjunctivae normal. Pupils: Pupils are equal, round, and reactive to light. Comments: + periorbital edema but no exophthalmus Neck: Comments: Thyroid is palpable, twice the normal size, firm, symmetric, no nodules appreciated. Cardiovascular: Rate and Rhythm: Regular rhythm. Tachycardia present. Pulmonary: Effort: Pulmonary effort is normal. Breath sounds: Normal breath sounds. Abdominal: General: Bowel sounds are normal. Palpations: Abdomen is soft. Musculoskeletal: Cervical back: Normal range of motion and neck supple. Neurological: General: No focal deficit present. Mental Status: She is alert and oriented to person, place, and time. + fine tremors of outstretched fingers Labs: Lab Results Component Value Date HGBA1C 5.5 08/05/2021 Potassium Date Value Ref Range Status 12/16/2024 3.9 3.5 - 5.3 mmol/L Final 08/05/2021 3.9 3.5 - 5.1 mmol/L Final Chloride Date Value Ref Range Status 12/16/2024 104 98 - 110 mmol/L Final 08/05/2021 106 98 - 108 mmol/L Final Bicarbonate Date Value Ref Range Status 08/05/2021 26 21 - 32 mmol/L Final CO2 Date Value Ref Range Status 12/16/2024 22 20 - 32 mmol/L Final Anion Gap Date Value Ref Range Status 08/05/2021 10 10 - 20 mmol/L Final Electrolyte Balance Date Value Ref Range Status 12/16/2024 10 7 - 17 mmol/L (calc) Final Glucose Date Value Ref Range Status 12/16/2024 88 65 - 139 mg/dL Final Comment: Non-fasting reference interval 08/05/2021 101 (H) 65 - 99 mg/dL Final BUN Date Value Ref Range Status 12/16/2024 10 7 - 25 mg/dL Final 10/26/2022 11 8 - 25 mg/dL Final Creatinine Date Value Ref Range Status 12/16/2024 0.60 0.50 - 0.97 mg/dL Final 10/26/2022 0.51 0.40 - 1.10 mg/dL Final 08/05/2021 0.75 0.40 - 1.10 mg/dL Final eGFR Date Value Ref Range Status 12/16/2024 124 > OR = 60 mL/min/1.73m2 Final 08/05/2021 112 >=60 mL/min/1.73 m2 Final Comment: Estimated GFR was calculated using the 2020 CKD-EPI creatinine equation. BUN/Creatinine Ratio Date Value Ref Range Status 08/05/2021 16.0 10.0 - 20.0 Final Total Protein Date Value Ref Range Status 12/16/2024 6.3 6.1 - 8.1 g/dL Final 08/05/2021 7.3 6.0 - 8.0 g/dL Final Albumin Date Value Ref Range Status 08/05/2021 4.0 3.2 - 5.2 g/dL Final Albumin, Serum Date Value Ref Range Status 12/16/2024 3.8 3.6 - 5.1 g/dL Final Calcium Date Value Ref Range Status 12/16/2024 9.1 8.6 - 10.2 mg/dL Final 08/05/2021 9.1 8.4 - 10.2 mg/dL Final Alkaline Phosphatase Date Value Ref Range Status 12/16/2024 59 31 - 125 U/L Final 08/05/2021 75 40 - 140 U/L Final AST Date (more content not included)... [facility] 12-19-2024 History of Presen t illness Narrative Images from the original note were not included. [facility] [id number] ([address]) [facility] [address] [facility] [id number] Chief Complaint: Chief Complaint Patient presents with Graves' Disease History of Present Illness: Gardenia Kevin is a 29 y.o. woman with Graves disease, here for a follow up visit. She has felt very fatigued, sluggish, migraines, poor appetite and nausea with morning sickness. over the past few weeks. TSH <0.005 and FT4 3.37 on 10/14/2023. She underwent IVF and and is now . She is currently on PTU 50 mg TID changed from methimazole 10 mg daily 09/07/24 while pursing IVF. Patient subsequently became and is currently 11w2d. 12/08/22 TSH: <0.01; Free T4: 1.8 TSI: 5.4 Thyroid stimulating immunoglobulin Component Ref Range & Units 11 mo ago 1 yr ago 2 yr ago Thyroid Stimulating Immumoglobulin <=1.3 TSI index 5.4 High 3.4 High CM 5.4 High CM Allergies: Naproxen Current Outpatient Medications Medication Instructions aspirin 81 mg methIMAzole (TAPAZOLE) 10 MG tablet Take 2 (two) tablets (20 mg total) by mouth daily with breakfast AND 1 (one) tablet (10 mg total) after evening meal. vitamin with Ca-Iron-FA 27-1 mg Tab 1 tablet, Daily propylthiouraciL (PTU) 50 mg, Oral, 3 times daily Past Medical History Past Medical History: Diagnosis Date Graves disease PCOS (polycystic ovarian syndrome) Past Surgical History: No past surgical history on file. Family History: Family History Problem Relation Age of Onset Lymphoma Maternal Grandmother Bladder Cancer Maternal Grandfather Social History: Social History Substance and Sexual Activity Alcohol Use Not Currently Alcohol/week: 1.0 standard drink of alcohol Types: 1 Glasses of wine per week Comment: social drinks once a month Tobacco & Smokeless: Tobacco Use Smoking status: Never Smokeless tobacco: Never Last 3 Weights: Wt Readings from Last 3 Encounters: 12/19/24 78.5 kg (173 lb) 10/18/24 76.2 kg (168 lb 1.6 oz) 05/19/24 72.2 kg (159 lb 3.2 oz) Review of Systems All other systems reviewed and are negative. Physical Exam Vitals reviewed. Constitutional: Appearance: Normal appearance. HENT: Head: Normocephalic and atraumatic. Eyes: Extraocular Movements: Extraocular movements intact. Conjunctiva/sclera: Conjunctivae normal. Pupils: Pupils are equal, round, and reactive to light. Comments: + periorbital edema but no exophthalmus Neck: Comments: Thyroid is palpable, twice the normal size, firm, symmetric, no nodules appreciated. Cardiovascular: Rate and Rhythm: Regular rhythm. Tachycardia present. Pulmonary: Effort: Pulmonary effort is normal. Breath sounds: Normal breath sounds. Abdominal: General: Bowel sounds are normal. Palpations: Abdomen is soft. Musculoskeletal: Cervical back: Normal range of motion and neck supple. Neurological: General: No focal deficit present. Mental Status: She is alert and oriented to person, place, and time. + fine tremors of outstretched fingers Labs: Lab Results Component Value Date HGBA1C 5.5 08/05/2021 Potassium Date Value Ref Range Status 12/16/2024 3.9 3.5 - 5.3 mmol/L Final 08/05/2021 3.9 3.5 - 5.1 mmol/L Final Chloride Date Value Ref Range Status 12/16/2024 104 98 - 110 mmol/L Final 08/05/2021 106 98 - 108 mmol/L Final Bicarbonate Date Value Ref Range Status 08/05/2021 26 21 - 32 mmol/L Final CO2 Date Value Ref Range Status 12/16/2024 22 20 - 32 mmol/L Final Anion Gap Date Value Ref Range Status 08/05/2021 10 10 - 20 mmol/L Final Electrolyte Balance Date Value Ref Range Status 12/16/2024 10 7 - 17 mmol/L (calc) Final Glucose Date Value Ref Range Status 12/16/2024 88 65 - 139 mg/dL Final Comment: Non-fasting reference interval 08/05/2021 101 (H) 65 - 99 mg/dL Final BUN Date Value Ref Range Status 12/16/2024 10 7 - 25 mg/dL Final 10/26/2022 11 8 - 25 mg/dL Final Creatinine Date Value Ref Range Status 12/16/2024 0.60 0.50 - 0.97 mg/dL Final 10/26/2022 0.51 0.40 - 1.10 mg/dL Final 08/05/2021 0.75 0.40 - 1.10 mg/dL Final eGFR Date Value Ref Range Status 12/16/2024 124 > OR = 60 mL/min/1.73m2 Final 08/05/2021 112 >=60 mL/min/1.73 m2 Final Comment: Estimated GFR was calculated using the 2020 CKD-EPI creatinine equation. BUN/Creatinine Ratio Date Value Ref Range Status 08/05/2021 16.0 10.0 - 20.0 Final Total Protein Date Value Ref Range Status 12/16/2024 6.3 6.1 - 8.1 g/dL Final 08/05/2021 7.3 6.0 - 8.0 g/dL Final Albumin Date Value Ref Range Status 08/05/2021 4.0 3.2 - 5.2 g/dL Final Albumin, Serum Date Value Ref Range Status 12/16/2024 3.8 3.6 - 5.1 g/dL Final Calcium Date Value Ref Range Status 12/16/2024 9.1 8.6 - 10.2 mg/dL Final 08/05/2021 9.1 8.4 - 10.2 mg/dL Final Alkaline Phosphatase Date Value Ref Range Status 12/16/2024 59 31 - 125 U/L Final 08/05/2021 75 40 - 140 U/L Final AST Date Value Ref Range Status 12/16/2024 14 10 - 30 U/L Final 08/05/2021 17 0 - 45 U/L Final ALT Date Value Ref Range Status 12/16/2024 12 6 - 29 U/L Final 08/05/2021 19 14 - 65 U/L Final Total Bilirubin Date Value Ref Range Status 08/05/2021 0.3 0.0 - 1.3 mg/dL Final Bilirubin, Total Date Value Ref Range Status 12/16/2024 0.3 0.2 - 1.2 mg/dL Final Labs Complete Blood Count: WBC Date Value Ref Range Status 12/16/2024 6.7 3.8 - 10.8 Thousand/uL Final 10/26/2022 7.93 4.50 - 11.00 K/mcL Final RBC Date Value Ref Range Status 12/16/2024 4.89 3.80 - 5.10 Million/uL Final 10/26/2022 4.69 4.00 - 5.20 M/mcL Final Hemoglobin Date Value Ref Range Status 12/16/2024 14.0 11.7 - 15.5 g/dL Final 10/26/2022 11.4 (L) 12.0 - 16.0 g/dL Final Hematocrit Date Value Ref Range Status 12/16/2024 42.8 35.0 - 45.0 % Final 10/26/2022 36.2 36.0 - 46.0 % Final MCV Date Value Ref Range Status 12/16/2024 87.5 80.0 - 100.0 fL Final 10/26/2022 77.2 (L) 80.0 - 100.0 fL Final MCH Date Value Ref Range Status 12/16/2024 28.6 27.0 - 33.0 pg Final 10/26/2022 24.3 (L) 26.0 - 34.0 pg Final MCHC Date Value Ref Range Status 12/16/2024 32.7 32.0 - 36.0 g/dL Final Comment: For adults, a slight decrease in the calculated MCHC value (in the range of 30 to 32 g/dL) is most likely not clinically significant; however, it should be interpreted with caution in correlation with other red cell parameters and the patient's clinical condition. 10/26/2022 31.5 31.0 - 37.0 g/dL Final Platelets Date Value Ref Range Status 12/16/2024 213 140 - 400 Thousand/uL Final 10/26/2022 287 150 - 400 K/mcL Final RDW Date Value Ref Range Status 12/16/2024 13.0 11.0 - 15.0 % Final RDW - CV Date Value Ref Range Status 10/26/2022 13.8 11.6 - 14.8 % Final MPV Date Value Ref Range Status 12/16/2024 9.6 7.5 - 12.5 fL Final 10/26/2022 8.8 (L) 9.4 - 12.4 fL Final Component Latest Ref Rng 11/09/2023 09/07/2024 12/16/2024 WBC 3.8 - 10.8 Thousand/uL 6.7 Hemoglobin 11.7 - 15.5 g/dL 14.0 Hematocrit 35.0 - 45.0 % 42.8 Platelets 140 - 400 Thousand/uL 213 Creatinine 0.50 - 0.97 mg/dL 0.60 eGFR > OR = 60 mL/min/1.73m2 124 ALK PHOS 31 - 125 U/L 59 AST 10 - 30 U/L 14 ALT 6 - 29 U/L 12 TSH mIU/L <0.01 (L) 0.08 (L) 0.69 FREE T4 0.8 - 1.8 ng/dL 2.3 (H) 1.3 1.2 T3 72 - 170 ng/dL 211 (H) T3, Total ([facility]) 76 - 181 ng/dL 123 158 Legend: (L) Low (H) High Assessment and Plan: 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 11w2d Patient is on PTU 50 mg TID. Will likely change to methimazole on or around 16 weeks. 5-7.5 mg depending on if dose adjustment is required between now and then. Typically PTU dose of 300 mg daily is equivalent to 10-15 mg of methimazole. Check Labs in 2 weeks and [employer] in 2 weeks after that. We extensively discussed the risks of uncontrolled hyperthyroidism or hypothyroidism during . I explained that we would keep her mildly hyperthyroid during her , to avoid hypothyroidism. In the past it was suggested that her her periorbital edema is a manifestation of Graves eye disease but patient declined further investigation. She does have an eye exam scheduled this month. She is also not interested in definitive treatment of her Graves disease. Follow Up: 1 month. Total visit time: 25 min, which were spent on review of clinic notes and tests, obtaining history and physical exam, counseling and educating the patient, ordering medications, tests and procedures, referring and communicating with other healthcare professionals, documenting clinical information and coordination of care. Electronically Signed by: Roxann Zafar CNP 12/21/24 9:47 AM Roxann Zafar CNP documented in this encounter [facility] 12-03-2024 Note . MICRO - Microbiology PROCEDURE: Urine Culture [*1] SOURCE: Urine, Clean Catch BODY SITE: COLLECTED DATE/TIME: 11/30/2024 15:55 EDT RECEIVED DATE/TIME: 12/01/2024 22:39 EDT START DATE/TIME: 12/01/2024 22:40 EDT FREE TEXT SOURCE: FINAL REPORTS Final Report [] Verified Date/Time/Personnel: 12/03/2024 08:08 EDT >100,000 cfu/ml Escherichia coli PRELIMINARY REPORTS Preliminary Report [] Verified Date/Time/Personnel: 12/02/2024 10:58 EDT >100,000 cfu/ml Escherichia coli HOWARD to follow Preliminary Report [] Verified Date/Time/Personnel: 12/01/2024 23:59 EDT Specimen received in lab. SUSCEPTIBILITY RESULTS Escherichia coli Antibiotic HOWARD Dilut HOWARD Inter Ampicillin <=8 Susceptible Ampicillin/ <=4/2 Susceptible Sulbactam Aztreonam <=4 Susceptible Cefazolin <=2 Susceptible Cefepime <=2 Susceptible Ceftolozane/ <=2 Susceptible Tazobactam Ciprofloxacin <=0.25 Susceptible Ertapenem <=0.5 Susceptible Gentamicin <=2 Susceptible ID Panel Not Not Applicable Applicable Imipenem <=1 Susceptible Levofloxacin <=0.5 Susceptible Meropenem <=1 Susceptible Minocycline <=4 Susceptible Nitrofurantoin <=32 Susceptible Trimethoprim/ <=0.5/9.5 Susceptible Sulfa Performing Locations *1: This test was performed at: [facility], [address] [place] [address], [place], [id number]- , [place] [facility] 10-18-2024 History of Presen t illness Narrative Images from the original note were not included. HPI Chief Complaint Patient presents with Establish Care Pt. Requesting FMLA paperwork for IVF treatment. Subjective: Gardenia Kevin is a 29 y.o. female andhere for a comprehensive physical exam and establish care. PMH of Graves/hyperthyroidism, iron deficiency anemia, infertility/PCOS. Graves disease, hyperthyroidism--following with endocrinology. Is on Methimazole dose 10 mg daily. But switching to Propylthiouracil 50 mg three times daily as she is currently under infertility treatments and has upcoming transfer. Infertility/PCOS-follows with team in [place]. Has upcoming transfer this . Currently on Progesterone injections and estradiol 3 times daily and Baby ASA. Did have swelling to left labia with last transfer, but notes this has since resolved, denies any issues today. 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 States she reached out to fertility team and was told they would not fill out. Iron deficiency anemia--was taking iron pills in past unfortunately experienced abdominal pain, constipation and diarrhea from this, therefore stopped, has not been on any supplementation recently. 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 no Vision/Last eye examination: glasses-[place] [facility] Last dental examination: have not, Sleep: not well Diet: Caffeine consumption: coffee, water very little Processed/fast foods: no EtOH: socially Smoking?: no Exercise: tired from work, Mood Health: PHQ-2 - over last 2 weeks Little interest or pleasure in doing things?: no Feeling down, depressed, hopeless?: no Health Maintenance Topic Date Due Wellness Visit Never done HIV Screening Never done Hepatitis C Screening Never done Depression Screening/Follow-Up (PHQ-2/9) 08/06/2022 Cervical Cancer Screening Never done Influenza Vaccine (1) 10/10/2024 COVID-19 Vaccine ( season) Never done Tetanus: Every 10yrs 12/03/2032 Pneumococcal Vaccine: Ped or At-Risk Aged Out The following portions of the patient's history were reviewed and updated as appropriate: allergies, current medications, past family history, past medical history, past social history, past surgical history and problem list. Past Medical History: Diagnosis Date Graves disease PCOS (polycystic ovarian syndrome) History reviewed. No pertinent surgical history. Social History[1] Family History Problem Relation Age of Onset Lymphoma Maternal Grandmother Bladder Cancer Maternal Grandfather Allergies[2] Outpatient Medications as of 10/18/2024 Medication Sig methIMAzole (TAPAZOLE) 10 MG tablet Take 2 (two) tablets (20 mg total) by mouth daily with breakfast AND 1 (one) tablet (10 mg total) after evening meal. vitamin with Ca-Iron-FA 27-1 mg Tab Take 1 (one) tablet by mouth daily . propylthiouraciL (PTU) 50 mg tablet Take 1 (one) tablet (50 mg total) by mouth 3 (three) times a day . [DISCONTINUED] albuterol 90 mcg/actuation inhaler Inhale 2 (two) puffs . (Patient not taking: Reported on 10/18/2024 .) [DISCONTINUED] amoxicillin-clavulanate (AUGMENTIN) 875-125 mg per tablet (Patient not taking: Reported on 10/18/2024) [DISCONTINUED] clotrimazole-betamethasone (LOTRISONE) cream Apply topically 2 (two) times a day . (Patient not taking: Reported on 10/18/2024 .) [DISCONTINUED] ferrous sulfate 325 (65 FE) MG tablet Take 1 (one) tablet (325 mg total) by mouth daily with breakfast . (Patient not taking: Reported on 10/18/2024 .) [DISCONTINUED] metFORMIN (GLUCOPHAGE) 500 MG tablet Take 1 (one) tablet (500 mg total) by mouth 2 (two) times a day with meals . (Patient not taking: Reported on 10/18/2024 .) [DISCONTINUED] propranoloL (INDERAL) 10 MG tablet Take 1 (one) tablet (10 mg total) by mouth 4 (four) times a day as needed . (Patient not taking: Reported on 10/18/2024 .) Review of Systems Review of Systems Objective: BP 122/74 (BP Location: Left arm, Patient Position: Sitting, BP Cuff Size: Adult) Pulse 77 Temp 98.3 F (36.8 C) (Oral) Resp 16 Ht 5' 2 Wt 76.2 kg (168 lb 1.6 oz) SpO2 98% BMI 30.75 kg/m Physical Exam Constitutional: General: She is not in acute distress. Appearance: She is not ill-appearing or toxic-appearing. HENT: Mouth/Throat: Mouth: Mucous membranes are moist. Pharynx: Oropharynx is clear. Eyes: Conjunctiva/sclera: Conjunctivae normal. Neck: Vascular: No carotid bruit. Cardiovascular: Rate and Rhythm: Normal rate and regular rhythm. Pulses: Normal pulses. Heart sounds: Normal heart sounds. Pulmonary: Effort: Pulmonary effort is normal. No respiratory distress. Breath sounds: Normal breath sounds. Abdominal: General: Bowel sounds are normal. There is no distension. Palpations: Abdomen is soft. Tenderness: There is no abdominal tenderness. There is no guarding or rebound. Musculoskeletal: Right lower leg: No edema. Left lower leg: No edema. Skin: General: Skin is warm and dry. Neurological: Mental Status: She is alert and oriented to person, place, and time. Psychiatric: Mood and Affect: Mood normal. Behavior: Behavior normal. Thought Content: Thought content normal. Judgment: Judgment normal. Assessment/Plan: Preventive care gaps addressed, including necessary vaccinations Encouraged lifestyle modifications with healthy diet and regular exercise Nutrition: Stressed importance of moderation in sodium/caffeine intake, saturated fat and cholesterol, caloric balance, sufficient intake of fresh fruits, vegetables, fiber, calcium, iron, and 1 mg of folate supplement per day (for females capable of ). Exercise: Stressed the importance of regular exercise. Reviewed personal hygiene and recommended regular dental / eye care Counseled patient on recommended vaccinations and importance of remaining up-to-date, if applicable Mental health and well-being discussed and resources provided Encouraged reaching out to clinic for any needs in this regard Recommend continued yearly wellness visits Problem List Items Addressed This Visit Iron deficiency anemia - Primary Relevant Orders CBC and Differential Iron Study with Ferritin Other Visit Diagnoses Screening for endocrine, metabolic, and immunity disorder Relevant Orders CBC and Differential Iron Study with Ferritin Comprehensive Metabolic Panel Wellness examination completed today. Discussed weight loss, diet and exercise and healthy lifestyle. Health recommendations and screenings reviewed and discussed with patient for age. Laboratory levels reviewed and discussed with patient, laboratory orders placed at this time, discussed with patient to be fasting, will notify once resulted. Iron deficiency anemia-not currently on supplementation, will check iron panel and notify with further plan of care. Graves disease/hyperthyroidism-encoura ged to continue working with endocrinology and taking medication as prescribed. PCOS/IVF-she is working with fertility team in [place]. Please note: Portions of this chart may have been created with [employer] voice recognition software. Occasional wrong-word or sound-like substitutions may have occurred due to inherent limitations of the voice recognition software. Please read the chart carefully and recognize, using context, where the substitutions have occurred. Electronically signed by LAMONT Fonseca 10:38 AM [1] Social History Tobacco Use Smoking status: Never Smokeless tobacco: Never Vaping Use Vaping status: Never Used Substance Use Topics Alcohol use: Not Currently Alcohol/week: 1.0 standard drink of alcohol Types: 1 Glasses of wine per week Comment: social drinks once a month Drug use: Never [2] Allergies Allergen Reactions Naproxen Hives and Rash documented in this encounter [facility] 10-18-2024 Note HPI Chief Complaint Patient presents with Establish Care Pt. Requesting FMLA paperwork for IVF treatment. Subjective: Gardenia Kevin is a 29 y.o. female andhere for a comprehensive physical exam and establish care. PMH of Graves/hyperthyroidism, iron deficiency anemia, infertility/PCOS. Graves disease, hyperthyroidism--following with endocrinology. Is on Methimazole dose 10 mg daily. But switching to Propylthiouracil 50 mg three times daily as she is currently under infertility treatments and has upcoming transfer. Infertility/PCOS-follows with team in [place]. Has upcoming transfer this . Currently on Progesterone injections and estradiol 3 times daily and Baby ASA. Did have swelling to left labia with last transfer, but notes this has since resolved, denies any issues today. 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 States she reached out to fertility team and was told they would not fill out. Iron deficiency anemia--was taking iron pills in past unfortunately experienced abdominal pain, constipation and diarrhea from this, therefore stopped, has not been on any supplementation recently. 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 no Vision/Last eye examination: glasses-[place] [facility] Last dental examination: have not, Sleep: not well Diet: Caffeine consumption: coffee, water very little Processed/fast foods: no EtOH: socially Smoking?: no Exercise: tired from work, Mood Health: PHQ-2 - over last 2 weeks Little interest or pleasure in doing things?: no Feeling down, depressed, hopeless?: no Health Maintenance Topic Date Due Wellness Visit Never done HIV Screening Never done Hepatitis C Screening Never done Depression Screening/Follow-Up (PHQ-2/9) 08/06/2022 Cervical Cancer Screening Never done Influenza Vaccine (1) 10/10/2024 COVID-19 Vaccine ( season) Never done Tetanus: Every 10yrs 12/03/2032 Pneumococcal Vaccine: Ped or At-Risk Aged Out The following portions of the patient's history were reviewed and updated as appropriate: allergies, current medications, past family history, past medical history, past social history, past surgical history and problem list. Past Medical History: Diagnosis Date Graves disease PCOS (polycystic ovarian syndrome) History reviewed. No pertinent surgical history. Social History[1] Family History Problem Relation Age of Onset Lymphoma Maternal Grandmother Bladder Cancer Maternal Grandfather Allergies[2] Outpatient Medications as of 10/18/2024 Medication Sig methIMAzole (TAPAZOLE) 10 MG tablet Take 2 (two) tablets (20 mg total) by mouth daily with breakfast AND 1 (one) tablet (10 mg total) after evening meal. vitamin with Ca-Iron-FA 27-1 mg Tab Take 1 (one) tablet by mouth daily . propylthiouraciL (PTU) 50 mg tablet Take 1 (one) tablet (50 mg total) by mouth 3 (three) times a day . [DISCONTINUED] albuterol 90 mcg/actuation inhaler Inhale 2 (two) puffs . (Patient not taking: Reported on 10/18/2024 .) [DISCONTINUED] amoxicillin-clavulanate (AUGMENTIN) 875-125 mg per tablet (Patient not taking: Reported on 10/18/2024) [DISCONTINUED] clotrimazole-betamethasone (LOTRISONE) cream Apply topically 2 (two) times a day . (Patient not taking: Reported on 10/18/2024 .) [DISCONTINUED] ferrous sulfate 325 (65 FE) MG tablet Take 1 (one) tablet (325 mg total) by mouth daily with breakfast . (Patient not taking: Reported on 10/18/2024 .) [DISCONTINUED] metFORMIN (GLUCOPHAGE) 500 MG tablet Take 1 (one) tablet (500 mg total) by mouth 2 (two) times a day with meals . (Patient not taking: Reported on 10/18/2024 .) [DISCONTINUED] propranoloL (INDERAL) 10 MG tablet Take 1 (one) tablet (10 mg total) by mouth 4 (four) times a day as needed . (Patient not taking: Reported on 10/18/2024 .) Review of Systems Review of Systems Objective: BP 122/74 (BP Location: Left arm, Patient Position: Sitting, BP Cuff Size: Adult) Pulse 77 Temp 98.3 degrees F (36.8 degrees C) (Oral) Resp 16 Ht 5' 2 Wt 76.2 kg (168 lb 1.6 oz) SpO2 98% BMI 30.75 kg/m Physical Exam Constitutional: General: She is not in acute distress. Appearance: She is not ill-appearing or toxic-appearing. HENT: Mouth/Throat: Mouth: Mucous membranes are moist. Pharynx: Oropharynx is clear. Eyes: Conjunctiva/sclera: Conjunctivae normal. Neck: Vascular: No carotid bruit. Cardiovascular: Rate and Rhythm: Normal rate and regular rhythm. Pulses: Normal pulses. Heart sounds: Normal heart sounds. Pulmonary: Effort: Pulmonary effort is normal. No respiratory distress. Breath sounds: Normal breath sounds. Abdominal: General: Bowel sounds are normal. There is no distension. Palpations: Abdomen is soft. (more content not included)... [facility] 05-19-2024 Note [facility] [address] ([address]) [facility] [address] MEDICAL OFFICE [facility] [address] Dept: [phone] Loc: [phone] MD Gardenia Everett 29 y.o. female Patient presents with a chief complaint of Hearing Problem (Second Opinion Sudden Hearing Loss ) Temp 98.3 degrees F (36.8 degrees C) (Oral) Ht 5' 2 Wt 72.2 kg (159 lb 3.2 oz) BMI 29.12 kg/m History of Presenting Illness: The patient/caregiver reports a history of complaint with the following features: Onset: started about a week ago with left ear infection, then sinus congestion and now eye redness Timing: abrupt onset of reduced hearing Duration: about a week Quality: left ear hearing loss, fullness, sinus congestion Location: both ears was worse on left, but popped last night and now is improving Severity: pain mild Risk factors: no recent sick contacts Alleviating factors: no relief with amoxicillin for 7 days, then changes to Augmentin starting yesterday Aggravating factors: nothing makes it worse Associated factors: no vertigo but some lightheadedness Review of systems covering 10 systems is reviewed and pertinent positives and negatives are noted as above. Past Medical History: Diagnosis Date Graves disease PCOS (polycystic ovarian syndrome) Current Medications[1] Allergies[2] History reviewed. No pertinent surgical history. Social History [3] Family History Problem Relation Age of Onset Lymphoma Maternal Grandmother Bladder Cancer Maternal Grandfather PHYSICAL EXAM: The patient was examined today 05/19/2024 with findings as follows: CONSTITUTIONAL: General Appearance: well-appearing, nontoxic, alert, no acute distress Communication: understanding at normal conversational tones, normal voicing, speech intelligible HEAD/FACE: Head: atraumatic, normocephalic, no lesions Facial Inspection: no lesions, healthy skin Facial Strength: motor strength normal, symmetric strength, symmetric movement Sinuses: no sinus tenderness Salivary Glands: no enlargements of parotid glands, no tenderness of parotid glands, no masses of parotid glands, clear salivary flow on palpation from Stensen's ducts, no duct stones of Stensen's duct, no enlargement of submandibular glands, no tenderness of submandibular glands, no masses of submandibular glands, clear salivary flow from Darwin's ducts, no stones of [place]'s ducts Temporomandibular Joint: no crepitus with motion, no tenderness on palpation, no trismus, motion symmetric EYES: Pupils: PERRLA, extra-ocular movements intact, no nystagmus, sclera white, mild redness of eyes, no watering of eyes EARS: Bilateral External Ears: no pits, no tags Right External Ear: normally formed, no lesions, no mastoid tenderness Left External Ear: normally formed, no lesions, no mastoid tenderness Right External Auditory Canal: normal, healthy skin, no obstructing cerumen, no discharge Left External Auditory Canal: normal, healthy skin, no obstructing cerumen, no discharge Right Tympanic Membrane: normal landmarks, translucent with increased vascular markings, mobile to pneumatic otoscopy, no perforation Left Tympanic Membrane: normal landmarks, translucent with increased vascular markings, mobile to pneumatic otoscopy, no perforation Hearing: intact to spoken voice, intact to finger rub, [place]court midline, Right Ear: Rinne AC>BC, Left Left Ear: Rinne AC>BC NOSE: Nasal Skin: no lesions, no lacerations, no scars Nasal Dorsum: symmetric with no visible or palpable deformities Nasal Tip: normal symmetric nasal tip, normal nasal valves Nasal Mucosa: boggy, clear discharge Septum: not markedly deformed, midline, no exposed vessels, no bleeding, no septal granuloma Turbinates: normal size and conformation Nasopharynx: normal ORAL CAVITY/MOUTH: Lips, teeth, gums: normal lips, normal gums, dentition intact, no dental pain on palpation Oral Mucosa: normal, moist, no lesions Palate: normal hard palate, normal soft palate, symmetric palatal elevation Floor of Mouth: normal floor of mouth Tongue: normal tongue, no lesions, no edema, no masses, normal mucosa, mobile Tonsils: normal tonsils, symmetric, no lesions Posterior pharynx: mild erythema NECK: Neck: no masses, trachea midline, normal range of motion, no cysts or pits, no tenderness to palpation Thyroid: normal thyroid, no enlargement, no tenderness, no nodules LYMPH NODES: Cervical: no palpable lymph node enlargement RESPIRATORY: Inspection/Auscultation: good air movement, chest expands symmetrically, normal breath sounds, no wheezing, no stridor CARDIOVASCULAR SYSTEM: Auscultation: regular rate and rhythm, carotid pulse normal, no carotid thrills, no carotid bruits Observation/Palpation of Peripheral Vascular System: no varicosities, no cyanosis, no edema SKIN: General Appearance: no lesions, warm and dr (more content not included)... [facility] 05-19-2024 History of Presen t illness Narrative [facility] [address] (11) [facility] [address] MEDICAL OFFICE [facility] [id number] Dept: [phone] Loc: [phone] MD Gardenia Everett 29 y.o. female Patient presents with a chief complaint of Hearing Problem (Second Opinion Sudden Hearing Loss ) Temp 98.3 F (36.8 C) (Oral) Ht 5' 2 Wt 72.2 kg (159 lb 3.2 oz) BMI 29.12 kg/m History of Presenting Illness: The patient/caregiver reports a history of complaint with the following features: Onset: started about a week ago with left ear infection, then sinus congestion and now eye redness Timing: abrupt onset of reduced hearing Duration: about a week Quality: left ear hearing loss, fullness, sinus congestion Location: both ears was worse on left, but popped last night and now is improving Severity: pain mild Risk factors: no recent sick contacts Alleviating factors: no relief with amoxicillin for 7 days, then changes to Augmentin starting yesterday Aggravating factors: nothing makes it worse Associated factors: no vertigo but some lightheadedness Review of systems covering 10 systems is reviewed and pertinent positives and negatives are noted as above. Past Medical History: Diagnosis Date Graves disease PCOS (polycystic ovarian syndrome) Current Medications[1] Allergies[2] History reviewed. No pertinent surgical history. Social History [3] Family History Problem Relation Age of Onset Lymphoma Maternal Grandmother Bladder Cancer Maternal Grandfather PHYSICAL EXAM: The patient was examined today 05/19/2024 with findings as follows: CONSTITUTIONAL: General Appearance: well-appearing, nontoxic, alert, no acute distress Communication: understanding at normal conversational tones, normal voicing, speech intelligible HEAD/FACE: Head: atraumatic, normocephalic, no lesions Facial Inspection: no lesions, healthy skin Facial Strength: motor strength normal, symmetric strength, symmetric movement Sinuses: no sinus tenderness Salivary Glands: no enlargements of parotid glands, no tenderness of parotid glands, no masses of parotid glands, clear salivary flow on palpation from Stensen's ducts, no duct stones of Stensen's duct, no enlargement of submandibular glands, no tenderness of submandibular glands, no masses of submandibular glands, clear salivary flow from [place]'s ducts, no stones of Darwin's ducts Temporomandibular Joint: no crepitus with motion, no tenderness on palpation, no trismus, motion symmetric EYES: Pupils: PERRLA, extra-ocular movements intact, no nystagmus, sclera white, mild redness of eyes, no watering of eyes EARS: Bilateral External Ears: no pits, no tags Right External Ear: normally formed, no lesions, no mastoid tenderness Left External Ear: normally formed, no lesions, no mastoid tenderness Right External Auditory Canal: normal, healthy skin, no obstructing cerumen, no discharge Left External Auditory Canal: normal, healthy skin, no obstructing cerumen, no discharge Right Tympanic Membrane: normal landmarks, translucent with increased vascular markings, mobile to pneumatic otoscopy, no perforation Left Tympanic Membrane: normal landmarks, translucent with increased vascular markings, mobile to pneumatic otoscopy, no perforation Hearing: intact to spoken voice, intact to finger rub, [place] midline, Right Ear: Rinne AC>BC, Left Left Ear: Rinne AC>BC NOSE: Nasal Skin: no lesions, no lacerations, no scars Nasal Dorsum: symmetric with no visible or palpable deformities Nasal Tip: normal symmetric nasal tip, normal nasal valves Nasal Mucosa: boggy, clear discharge Septum: not markedly deformed, midline, no exposed vessels, no bleeding, no septal granuloma Turbinates: normal size and conformation Nasopharynx: normal ORAL CAVITY/MOUTH: Lips, teeth, gums: normal lips, normal gums, dentition intact, no dental pain on palpation Oral Mucosa: normal, moist, no lesions Palate: normal hard palate, normal soft palate, symmetric palatal elevation Floor of Mouth: normal floor of mouth Tongue: normal tongue, no lesions, no edema, no masses, normal mucosa, mobile Tonsils: normal tonsils, symmetric, no lesions Posterior pharynx: mild erythema NECK: Neck: no masses, trachea midline, normal range of motion, no cysts or pits, no tenderness to palpation Thyroid: normal thyroid, no enlargement, no tenderness, no nodules LYMPH NODES: Cervical: no palpable lymph node enlargement RESPIRATORY: Inspection/Auscultation: good air movement, chest expands symmetrically, normal breath sounds, no wheezing, no stridor CARDIOVASCULAR SYSTEM: Auscultation: regular rate and rhythm, carotid pulse normal, no carotid thrills, no carotid bruits Observation/Palpation of Peripheral Vascular System: no varicosities, no cyanosis, no edema SKIN: General Appearance: no lesions, warm and dry, normal turgor, no bruising NEUROLOGICAL SYSTEM: Orientation: oriented to time, oriented to place, oriented to person Cranial Nerves: Cranial Nerves II-XII intact, normal facial movement PSYCHIATRIC: Mood and affect: abnormal mood, anxious affect Assessment and Plan: She presents with acute otitis media. This is likely viral in nature. This appears to be clearing on the left, and I anticipate this to resolve without further treatment. Audiometric testing is performed today and independently reviewed and interpreted. This shows normal left hearing and a very mild right conductive hearing loss. Tympanometry shows normal compliance consistent with normally ventilated middle ear spaces. This is all consistent with acute viral illness, resolving on the left and developing on the right middle ear inflammation. No acute intervention is required. Viral testing for worsening symptoms may be of benefit, but otherwise supportive care should suffice. She may complete her antibiotic, although I see no signs of bacterial disease. Rest, hydration, and analgesia as needed is encouraged. The patient and/or caregiver is advised on the use of OTC agents such as acetaminophen and ibuprofen and any prescribed pain medication for the relief of pain as well as appropriate non-medical treatments such as massage, application of warm or cold compresses, and rest. The patient and/or caregiver is able to state and understanding of these recommendations and is agreeable to the treatment plan. 1. Disorder of both eustachian tubes Ambulatory referral to Audiology 2. Acute viral disease 3. Conductive hearing loss of right ear with unrestricted hearing of left ear Return if symptoms worsen or fail to improve. The patient and/or caregiver is to notify the office if no improvement or worsening of symptoms is noted prior to the scheduled follow-up for sooner evaluation. The patient and/or caregiver is able to state an understanding of these recommendations and is agreeable to the treatment plan. --Stephen Perez MD on 05/19/2024 at 5:08 PM An electronic signature was used to authenticate this note. [1] Current Outpatient Medications: amoxicillin-clavulanate (AUGMENTIN) 875-125 mg per tablet, , Disp: , Rfl: methIMAzole (TAPAZOLE) 10 MG tablet, Take 2 (two) tablets (20 mg total) by mouth daily with breakfast AND 1 (one) tablet (10 mg total) after evening meal., Disp: 90 tablet, Rfl: 11 vitamin with Ca-Iron-FA 27-1 mg Tab, Take 1 (one) tablet by mouth daily ., Disp: , Rfl: albuterol 90 mcg/actuation inhaler, Inhale 2 (two) puffs . (Patient not taking: Reported on 05/19/2024 .), Disp: , Rfl: clotrimazole-betamethasone (LOTRISONE) cream, Apply topically 2 (two) times a day . (Patient not taking: Reported on 05/19/2024 .), Disp: 30 g, Rfl: 2 ferrous sulfate 325 (65 FE) MG tablet, Take 1 (one) tablet (325 mg total) by mouth daily with breakfast . (Patient not taking: Reported on 11/22/2021 .), Disp: 90 tablet, Rfl: 0 metFORMIN (GLUCOPHAGE) 500 MG tablet, Take 1 (one) tablet (500 mg total) by mouth 2 (two) times a day with meals . (Patient not taking: Reported on 05/19/2024 .), Disp: , Rfl: propranoloL (INDERAL) 10 MG tablet, Take 1 (one) tablet (10 mg total) by mouth 4 (four) times a day as needed . (Patient not taking: Reported on 05/19/2024 .), Disp: 120 tablet, Rfl: 11 [2] Allergies Allergen Reactions Naproxen Hives and Rash [3] Social History Socioeconomic History Marital status: Tobacco Use Smoking status: Never Smokeless tobacco: Never Vaping Use Vaping status: Never Used Substance and Sexual Activity Alcohol use: Not Currently Comment: social drinks Drug use: Never Sexual activity: Yes Partners: Male control/protection: None Review of Systems Constitutional: Positive for appetite change and fatigue. HENT: Positive for congestion, ear discharge, hearing loss and sinus pressure. Eyes: Positive for redness and itching. Respiratory: Negative. Cardiovascular: Negative. Gastrointestinal: Positive for diarrhea. Endocrine: Negative. Genitourinary: Negative. Musculoskeletal: Negative. Skin: Negative. Allergic/Immunologic: Negative. Neurological: Positive for headaches. Hematological: Bruises/bleeds easily. Psychiatric/Behavioral: Negative. documented in this encounter [facility] 12-22-2023 History of Presen t illness Narrative Images from the original note were not included. NEW Patient Visit HARISH Bryan DPM Patient Name: Gardenia Kevin. . Date of : 1995, 28 y.o.. Gender: female. Subjective: Patient is a pleasant 28-year-old female who presents to clinic today for multiple pedal complaints. She has been dealing with dry itchy skin for some time. She does have some wetness between her toes. Her nails have turned thickened and discolored and this is very discouraging to the patient. She is a former athlete and played soccer. She is diagnosed and medicated for Graves' disease. She also has a bunion on her left side which can be quite painful. She works as a nurse here at [employer]. She denies any current fever, chills, nausea vomiting chest pain calf pain or shortness of breath. Patient has no other pedal complaints at this time. Past Medical History: Diagnosis Date Graves disease PCOS (polycystic ovarian syndrome) History reviewed. No pertinent surgical history. Social History Socioeconomic History Marital status: Tobacco Use Smoking status: Never Smokeless tobacco: Never Vaping Use Vaping status: Never Used Substance and Sexual Activity Alcohol use: Not Currently Comment: social drinks Drug use: Never Sexual activity: Yes Partners: Male control/protection: None Physical Examination: There were no vitals taken for this visit. General Appearance: Alert, cooperative, no distress, appears stated age. Podiatric Exam Vascular: DP and PT pulses are easily palpable, 2/4. Capillary refill time is brisk to distal digits, less than 3 seconds. Skin temperature is warm to warm from proximal tibial tuberosity to distal digits. No dependent rubor. Neurological: Epicritic and protopathic sensation intact to bilateral lower extremities. Dermatologic: Skin is largely supple and intact with mild xerosis and flaking noted plantarly into the medial and lateral sides not extending past Perez's line. Webspaces are mildly macerated. No significant erythema. Nails 1 through 5 are largely thickened elongated dystrophic with evidence of subungual debris worst being to nails 1 3 and 5 bilaterally. No open wounds of note. Musculoskeletal: Bilateral foot and ankle overall rectus alignment. Muscle strength testing 5 out of 5 to all tested muscle groups. Ankle joint range of motion limited with knee extended to slightly creasingly flex. Within normal limits of subtalar joint midtarsal range of motion. Patient does have a bunion deformity on her left not right. Semireducible in nature. Diagnoses: 1. Onychomycosis Hepatic function panel 2. Onychodystrophy Hepatic function panel 3. Bunion 4. Gastrocnemius equinus, unspecified laterality 5. Tinea pedis, unspecified laterality Hepatic function panel Imaging: Not acquired in today's visit. Assessment/Plan: Patient was seen and evaluated. Discussed all clinical findings. Educated patient on etiology and pathophysiology associated various of maladies for Discussed various treatment options available to patient. Patient has elected to move forward with conservative treatment of onychomycosis and tinea pedis. Patient was consented and nail biopsy was taken from right third digit which appear to be grossly fungal. We will send this out for PAS and GMS staining. Rx for terbinafine for 45 days, educated patient on risk associated with terbinafine use. Patient understands and is willing to accept these risks. Ordered LFTs Patient to follow-up in 45 for reevaluation. This note was partially created using voice recognition software and is inherently subject to errors including those of syntax and sound-alike substitutions which may escape proofreading. In such instances, original meaning may be extrapolated by contextual derivation. HARISH Bryan DPM Podiatric Foot & Ankle Surgery documented in this encounter [facility] 12-03-2022 Emergency department Note HPI Chief Complaint Patient presents with Knee Injury Patient to ED referwence left knee pain/laceration. She fell from back of pick-up truck onto gravel on the ground. 27-year-old female presents today via triage for complaint of a knee injury. Patient reportedly fell injuring her left knee. She did fall onto gravel and believes there may be retained foreign bodies. She states that she has remained ambulatory and reports full range of motion. Denies weakness or paresthesias. She states that her last tetanus shot has been greater than the past 5 years cardiopulmonary physical therapist used: No No data recorded Patient History No past medical history on file. No past surgical history on file. No family history on file. Social History Tobacco Use Smoking status: Not on file Smokeless tobacco: Not on file Substance Use Topics Alcohol use: Not on file Drug use: Not on file Physical Exam ED Triage Vitals [12/03/22 1420] Temp Heart Rate Resp BP 36.7 C (98 F) 82 16 137/66 SpO2 Temp Source Heart Rate Source Patient Position 99 % Oral Monitor Lying BP Location FiO2 (%) Left arm -- Physical Exam Vitals and nursing note reviewed. Constitutional: General: She is not in acute distress. Appearance: Normal appearance. She is normal weight. She is not ill-appearing, toxic-appearing or diaphoretic. HENT: Head: Normocephalic. Nose: Nose normal. Mouth/Throat: Mouth: Mucous membranes are moist. Eyes: Extraocular Movements: Extraocular movements intact. Conjunctiva/sclera: Conjunctivae normal. Cardiovascular: Rate and Rhythm: Normal rate and regular rhythm. Pulses: Normal pulses. Pulmonary: Effort: Pulmonary effort is normal. Breath sounds: Normal breath sounds. Musculoskeletal: General: Normal range of motion. Comments: Mild tenderness on palpation to the anterior left knee. Patient's left lower extremity is neurovascular intact throughout with soft compartments brisk cap refill and easily palpable distal pulses Skin: General: Skin is warm and dry. Capillary Refill: Capillary refill takes less than 2 seconds. Comments: Single linear 2 cm laceration to the anterior knee. The laceration was found to have a single piece of gravel which I removed Neurological: General: No focal deficit present. Mental Status: She is alert and oriented to person, place, and time. Psychiatric: Mood and Affect: Mood normal. Behavior: Behavior normal. Thought Content: Thought content normal. Judgment: Judgment normal. ED Course & MDM ED Course as of 12/03/22 160ThuDec 03, 2022 1546 IMPRESSION: No acute fracture or dislocation in the left knee. No significant knee joint effusion [DS] ED Course User Index [DS] Suyapa Moss PA-C Diagnoses as of 12/03/22 160 Laceration of left knee, initial encounter Medical Decision Making Patient's wound was cleaned and irrigated. Imaging was obtained. Tetanus status was updated. Imaging was obtained and revealed no evidence of fracture or retained foreign body. Patient was notified of the findings. 3 sutures were placed approximating the patient's laceration without difficulty. Bacitracin was applied along with the Curlex wrap. Patient will be instructed to limit the physical activity until the sutures are removed. Recommended having the sutures removed in the next 7 days. Encouraged patient to be observant for signs and symptoms of infection. Return precautions were discussed at length. Procedure Procedures Suyapa Moss PA-C 12/03/22 1500 Suyapa Moss PA-C 12/03/22 1603 documented in this encounter [facility] Work Phone: 12-03-2022 Physician Emergency department Note HPI Chief Complaint Patient presents with Knee Injury Patient to ED referwence left knee pain/laceration. She fell from back of pick-up truck onto gravel on the ground. 27-year-old female presents today via triage for complaint of a knee injury. Patient reportedly fell injuring her left knee. She did fall onto gravel and believes there may be retained foreign bodies. She states that she has remained ambulatory and reports full range of motion. Denies weakness or paresthesias. She states that her last tetanus shot has been greater than the past 5 years cardiopulmonary physical therapist used: No No data recorded Patient History No past medical history on file. No past surgical history on file. No family history on file. Social History Tobacco Use Smoking status: Not on file Smokeless tobacco: Not on file Substance Use Topics Alcohol use: Not on file Drug use: Not on file Physical Exam ED Triage Vitals [12/03/22 1420] Temp Heart Rate Resp BP 36.7 C (98 F) 82 16 137/66 SpO2 Temp Source Heart Rate Source Patient Position 99 % Oral Monitor Lying BP Location FiO2 (%) Left arm -- Physical Exam Vitals and nursing note reviewed. Constitutional: General: She is not in acute distress. Appearance: Normal appearance. She is normal weight. She is not ill-appearing, toxic-appearing or diaphoretic. HENT: Head: Normocephalic. Nose: Nose normal. Mouth/Throat: Mouth: Mucous membranes are moist. Eyes: Extraocular Movements: Extraocular movements intact. Conjunctiva/sclera: Conjunctivae normal. Cardiovascular: Rate and Rhythm: Normal rate and regular rhythm. Pulses: Normal pulses. Pulmonary: Effort: Pulmonary effort is normal. Breath sounds: Normal breath sounds. Musculoskeletal: General: Normal range of motion. Comments: Mild tenderness on palpation to the anterior left knee. Patient's left lower extremity is neurovascular intact throughout with soft compartments brisk cap refill and easily palpable distal pulses Skin: General: Skin is warm and dry. Capillary Refill: Capillary refill takes less than 2 seconds. Comments: Single linear 2 cm laceration to the anterior knee. The laceration was found to have a single piece of gravel which I removed Neurological: General: No focal deficit present. Mental Status: She is alert and oriented to person, place, and time. Psychiatric: Mood and Affect: Mood normal. Behavior: Behavior normal. Thought Content: Thought content normal. Judgment: Judgment normal. ED Course & MDM ED Course as of 12/03/22 1602 ThuDec 03, 2022 1546 IMPRESSION: No acute fracture or dislocation in the left knee. No significant knee joint effusion [DS] ED Course User Index [DS] Suyapa Moss PA-C Diagnoses as of 12/03/22 1602 Laceration of left knee, initial encounter Medical Decision Making Patient's wound was cleaned and irrigated. Imaging was obtained. Tetanus status was updated. Imaging was obtained and revealed no evidence of fracture or retained foreign body. Patient was notified of the findings. 3 sutures were placed approximating the patient's laceration without difficulty. Bacitracin was applied along with the Curlex wrap. Patient will be instructed to limit the physical activity until the sutures are removed. Recommended having the sutures removed in the next 7 days. Encouraged patient to be observant for signs and symptoms of infection. Return precautions were discussed at length. Procedure Procedures Suyapa Moss PA-C 12/03/22 1500 Suyapa Moss PA-C 12/03/221602 [facility] Work Phone: 10-17-2022 History of Presen t illness Narrative Images from the original note were not included. Patient ID: Gardenia Kevin is a 27 y.o. female Subjective: Gardenia is a 27 yo female who presents to our office for consult for subclinical hyperthyroidism. She presented to her primary care provider for symptoms of fatigue and weight gain of 30 lbs over 6 months. Her PCP ordered thyroid function tests and she had a decreased TSH on August 05, 2021. She was also diagnosed with PCOS in February 2021. She went to her OB at the time because she was experiencing irregular, painful periods. She states that she underwent laparoscopy and was told she has cystic ovaries, fibroids, and a heart shaped uterus. She was referred to an infertility clinic, but unfortunately wasn't able to follow up with them due to cost issues. She was placed on Metformin and ferrous sulfate by her PCP for PCOS and iron deficiency anemia three weeks ago. She states that she is experiencing nausea with the medications. 10/04/21 she reports that she is feeling better. Notes improved energy level. Still has some symptoms noted below. 11/22/21: Returns for follow up, stopped methimazole September 2021 due to weight gain. Review of Systems: Review of Systems Constitutional: Positive for appetite change, fatigue and unexpected weight change. Negative for diaphoresis. HENT: Negative for sore throat, trouble swallowing and voice change. Eyes: Negative for pain, redness and visual disturbance. Respiratory: Negative for cough, shortness of breath and wheezing. Cardiovascular: Negative for chest pain and palpitations. Gastrointestinal: Positive for nausea (with metformin and ferrous sulfate). Negative for constipation, diarrhea and vomiting. Endocrine: Positive for cold intolerance (occasional). Negative for heat intolerance. Positive hair loss Genitourinary: Negative for frequency. Musculoskeletal: Negative for neck pain and neck stiffness. Skin: Negative for rash and wound. Neurological: Negative for tremors, seizures, syncope and weakness. Psychiatric/Behavioral: Negative for sleep disturbance. The following portions of the patient's history were reviewed and updated as appropriate: allergies, current medications, past family history, past medical history, past social history, past surgical history and problem list. Allergies Allergen Reactions Naproxen Hives and Rash Current Outpatient Medications Medication Sig Dispense Refill albuterol 90 mcg/actuation inhaler Inhale 2 (two) puffs . ferrous sulfate 325 (65 FE) MG tablet Take 1 (one) tablet (325 mg total) by mouth daily with breakfast . (Patient not taking: Reported on 11/22/2021 .) 90 tablet 0 ferrous sulfate 325 (65 FE) MG tablet Take 1 (one) tablet (325 mg total) by mouth daily with breakfast . (Patient not taking: Reported on 11/22/2021 .) 90 tablet 0 metFORMIN (GLUCOPHAGE) 500 MG tablet Take 1 (one) tablet (500 mg total) by mouth daily with breakfast . (Patient not taking: Reported on 10/17/2022 .) 30 tablet 11 methIMAzole (TAPAZOLE) 5 MG tablet Take 1 (one) tablet (5 mg total) by mouth daily . (Patient not taking: Reported on 10/17/2022 .) 30 tablet 11 phentermine (Adipex-P) 37.5 mg tablet Take 1 (one) tablet (37.5 mg total) by mouth every morning . (Patient not taking: Reported on 10/17/2022 .) 30 tablet 0 No current facility-administered medications for this visit. Objective: BP 134/85 (BP Location: Right arm) Pulse 90 Wt 73.3 kg (161 lb 9.6 oz) BMI 29.56 kg/m Wt Readings from Last 3 Encounters: 10/17/22 73.3 kg (161 lb 9.6 oz) 11/25/21 71.7 kg (158 lb) 11/22/21 71.7 kg (158 lb) Physical Exam: Physical Exam Constitutional: Appearance: Normal appearance. She is well-developed. HENT: Head: Normocephalic and atraumatic. Eyes: Extraocular Movements: Extraocular movements intact. Neck: Thyroid: No thyromegaly. Cardiovascular: Rate and Rhythm: Normal rate and regular rhythm. Heart sounds: Normal heart sounds. No murmur heard. Pulmonary: Effort: Pulmonary effort is normal. No respiratory distress. Breath sounds: Normal breath sounds. No wheezing or rales. Skin: General: Skin is warm. Findings: No erythema. Neurological: Mental Status: She is alert and oriented to person, place, and time. Labs: 10/14/22: TSH: <0.01 Free T4: 1.9 05/07/22 TSH: 0.74; Free T4: 1.0 TSI: 3.4 11/21/21 TSH: 0.66; Free T4: 1.2 09/20/21 TSH 0.75, FT4--1.1 08/05/2021: TSH 0.08, Free T4 1.1 TPO 3.5, TgbAb 4.7 TSI 5.4 WBC 5.17, Hgb 11.7, Hct 38.1, Plt 308k ALT 19, AST 17 Assessment: Dx: Problem List Items Addressed This Visit None Patient was diagnosed with Graves' disease, and she was taking methimazole 5 mg daily, however stopped September 2021 due to complaints of weight gain and fatigue. TFTs have improved. She is feeling less tired. She states that at this time, she and her aren't actively trying to conceive, but are not using any type of control. We discussed the risks of Methimazole during the first trimester of and she understood this. She is to contact us if she becomes . She would need to be monitored closely during . Other side effects including rash, neutropenia, and liver dysfunction was discussed with the patient. Plan: Restart methimazole 20 mg daily. Recheck TFTs in one month and before next appointment. Follow up in 2 months. Notify office if she were to become . Reviewed signs and symptoms of hyperthyroidism. Instructed to call with issues or questions. She should Return in about 2 months (around 12/17/2022). She should complete lab work prior to her next visit. Electronically Signed by: Roxann Zafar CNP 10/17/22 11:24 AM documented in this encounter [facility] 05-09-2022 Miscellaneous Notes Called pt, VM box full. Will try reaching out again later or to the Significant other Yes I will see her, ok to schedule establish care visit. Patient calling asking if Dr. Distel would see her as a patient again Was a patient at her last office Current labs are in Care everywhere Current concerns are fatigue Iron deficiency anemia Can't tolerate oral Iron supplement Graves disease not on medication Answer Assessment - Initial Assessment Questions See documentation note. Protocols used: Information Only Call - No [id number] Please advise documented in this encounter [facility] [place] 12-24-2021 History of Presen t illness Narrative Attempted call 3rd time- no answer Called patient twice- LVOM X2 documented in this encounter [facility] 10-04-2021 History of Presen t illness Narrative Images from the original note were not included. Patient ID: Gardenia Kevin is a 26 y.o. female Subjective: Gardenia is a 26 yo female who presents to our office for consult for subclinical hyperthyroidism. She presented to her primary care provider for symptoms of fatigue and weight gain of 30 lbs over 6 months. Her PCP ordered thyroid function tests and she had a decreased TSH on August 05, 2021. She was also diagnosed with PCOS in February 2021. She went to her OB at the time because she was experiencing irregular, painful periods. She states that she underwent laparoscopy and was told she has cystic ovaries, fibroids, and a heart shaped uterus. She was referred to an infertility clinic, but unfortunately wasn't able to follow up with them due to cost issues. She was placed on Metformin and ferrous sulfate by her PCP for PCOS and iron deficiency anemia three weeks ago. She states that she is experiencing nausea with the medications. 10/04/21 she reports that she is feeling better. Notes improved energy level. Still has some symptoms noted below. Review of Systems: Review of Systems Constitutional: Positive for appetite change, fatigue and unexpected weight change. Negative for diaphoresis. HENT: Negative for sore throat, trouble swallowing and voice change. Eyes: Negative for pain, redness and visual disturbance. Respiratory: Negative for cough, shortness of breath and wheezing. Cardiovascular: Negative for chest pain and palpitations. Gastrointestinal: Positive for nausea (with metformin and ferrous sulfate). Negative for constipation, diarrhea and vomiting. Endocrine: Positive for cold intolerance (occasional). Negative for heat intolerance. Positive hair loss Genitourinary: Negative for frequency. Musculoskeletal: Negative for neck pain and neck stiffness. Skin: Negative for rash and wound. Neurological: Negative for tremors, seizures, syncope and weakness. Psychiatric/Behavioral: Negative for sleep disturbance. The following portions of the patient's history were reviewed and updated as appropriate: allergies, current medications, past family history, past medical history, past social history, past surgical history and problem list. Allergies Allergen Reactions Naproxen Hives and Rash Current Outpatient Medications Medication Sig Dispense Refill albuterol 90 mcg/actuation inhaler Inhale 2 puffs . azelaic acid (Finacea) 15 % Foam ferrous sulfate 325 (65 FE) MG tablet Take 1 (one) tablet (325 mg total) by mouth daily with breakfast . 90 tablet 0 ferrous sulfate 325 (65 FE) MG tablet Take 1 (one) tablet (325 mg total) by mouth daily with breakfast . 90 tablet 0 metFORMIN (GLUCOPHAGE) 500 MG tablet Take 1 (one) tablet (500 mg total) by mouth daily with breakfast . 30 tablet 11 methIMAzole (TAPAZOLE) 5 MG tablet Take 1 (one) tablet (5 mg total) by mouth daily . 30 tablet 11 No current facility-administered medications for this visit. Past Medical History: Diagnosis Date PCOS (polycystic ovarian syndrome) 02/2021 History reviewed. No pertinent surgical history. Family History Problem Relation Age of Onset Lymphoma Maternal Grandmother Bladder Cancer Maternal Grandfather Social History Socioeconomic History Marital status: Tobacco Use Smoking status: Never Smokeless tobacco: Never Vaping Use Vaping Use: Never used Substance and Sexual Activity Alcohol use: Yes Comment: social drinks Drug use: Never Sexual activity: Yes Partners: Male control/protection: None Objective: BP 119/78 Pulse 60 Wt 73 kg (161 lb) BMI 29.45 kg/m Wt Readings from Last 3 Encounters: 10/04/21 73 kg (161 lb) 08/26/21 72.1 kg (159 lb) 08/05/21 71.2 kg (157 lb) Physical Exam: Physical Exam Constitutional: Appearance: Normal appearance. She is well-developed. HENT: Head: Normocephalic and atraumatic. Eyes: Extraocular Movements: Extraocular movements intact. Neck: Thyroid: No thyromegaly. Cardiovascular: Rate and Rhythm: Normal rate and regular rhythm. Heart sounds: Normal heart sounds. No murmur heard. Pulmonary: Effort: Pulmonary effort is normal. No respiratory distress. Breath sounds: Normal breath sounds. No wheezing or rales. Skin: General: Skin is warm. Findings: No erythema. Neurological: Mental Status: She is alert and oriented to person, place, and time. Labs: 09/20/21 TSH 0.75, FT4--1.1 08/05/2021: TSH 0.08, Free T4 1.1 TPO 3.5, TgbAb 4.7 TSI 5.4 WBC 5.17, Hgb 11.7, Hct 38.1, Plt 308k ALT 19, AST 17 Assessment: Dx: Problem List Items Addressed This Visit None Visit Diagnoses Graves disease - Primary Relevant Medications methIMAzole (TAPAZOLE) 5 MG tablet Other Relevant Orders T4, Free TSH Patient was diagnosed with Graves' disease, and she has been taking methimazole 5 mg daily. TFTs have improved. She is feeling less tired. She states that at this time, she and her aren't actively trying to conceive, but are not using any type of control. We discussed the risks of Methimazole during the first trimester of and she understood this. She is to contact us if she becomes . She would need to be changed to PTU or SSKI during first trimester of . Other side effects including rash, neutropenia, and liver dysfunction was discussed with the patient. Plan: Continue methimazole 5 mg daily Recheck TFTs before next appointment. Follow up in 4 weeks. Notify office if she were to become . She should Return in about 6 weeks (around 11/15/2021). She should complete lab work prior to her next visit. documented in this encounter [facility] 08-26-2021 Note Addended by: NATA TONY on: 08/26/2021 07:58 PM Modules accepted: Orders [facility] 08-26-2021 Miscellaneous Notes Addended by: NATA TONY on: 08/26/2021 07:58 PM Modules accepted: Orders documented in this encounter [facility] 08-26-2021 History of Presen t illness Narrative Images from the original note were not included. Patient ID: Gardenia Kevin is a 26 y.o. female Subjective: Gardenia is a 26 yo female who presents to our office for consult for subclinical hyperthyroidism. She presented to her primary care provider for symptoms of fatigue and weight gain of 30 lbs over 6 months. Her PCP ordered thyroid function tests and she had a decreased TSH on August 05, 2021. She was also diagnosed with PCOS in February 2021. She went to her OB at the time because she was experiencing irregular, painful periods. She states that she underwent laparoscopy and was told she has cystic ovaries, fibroids, and a heart shaped uterus. She was referred to an infertility clinic, but unfortunately wasn't able to follow up with them due to cost issues. She was placed on Metformin and ferrous sulfate by her PCP for PCOS and iron deficiency anemia three weeks ago. She states that she is experiencing nausea with the medications. Today she states that she is feeling sluggish. She is experiencing appetite changes, fatigue, hair loss, and cold intolerance. She denies symptoms of trouble swallowing, tremors, palpitations, sleep disturbance, and visual disturbances. She is currently on her menstrual cycle. Family history is negative for thyroid disorders. Review of Systems: Review of Systems Constitutional: Positive for appetite change, fatigue and unexpected weight change. Negative for diaphoresis. HENT: Negative for sore throat, trouble swallowing and voice change. Eyes: Negative for pain, redness and visual disturbance. Respiratory: Negative for cough, shortness of breath and wheezing. Cardiovascular: Negative for chest pain and palpitations. Gastrointestinal: Positive for nausea (with metformin and ferrous sulfate). Negative for constipation, diarrhea and vomiting. Endocrine: Positive for cold intolerance (occasional). Negative for heat intolerance. Positive hair loss Genitourinary: Negative for frequency. Musculoskeletal: Negative for neck pain and neck stiffness. Skin: Negative for rash and wound. Neurological: Negative for tremors, seizures, syncope and weakness. Psychiatric/Behavioral: Negative for sleep disturbance. The following portions of the patient's history were reviewed and updated as appropriate: allergies, current medications, past family history, past medical history, past social history, past surgical history and problem list. Allergies Allergen Reactions Naproxen Hives and Rash Current Outpatient Medications Medication Sig Dispense Refill albuterol 90 mcg/actuation inhaler Inhale 2 puffs . azelaic acid (Finacea) 15 % Foam ferrous sulfate 325 (65 FE) MG tablet Take 1 (one) tablet (325 mg total) by mouth daily with breakfast . 90 tablet 0 metFORMIN (GLUCOPHAGE) 500 MG tablet Take 1 (one) tablet (500 mg total) by mouth daily with breakfast . 30 tablet 11 No current facility-administered medications for this visit. Past Medical History: Diagnosis Date PCOS (polycystic ovarian syndrome) 02/2021 No past surgical history on file. Family History Problem Relation Age of Onset Lymphoma Maternal Grandmother Bladder Cancer Maternal Grandfather Social History Socioeconomic History Marital status: Tobacco Use Smoking status: Never Smokeless tobacco: Never Vaping Use Vaping Use: Never used Substance and Sexual Activity Alcohol use: Yes Comment: social drinks Drug use: Never Sexual activity: Yes Partners: Male control/protection: None Objective: BP 120/79 Pulse 60 Ht 5' 2 Wt 72.1 kg (159 lb) BMI 29.08 kg/m Wt Readings from Last 3 Encounters: 08/26/21 72.1 kg (159 lb) 08/05/21 71.2 kg (157 lb) Physical Exam: Physical Exam Constitutional: Appearance: Normal appearance. She is well-developed. HENT: Head: Normocephalic and atraumatic. Eyes: Extraocular Movements: Extraocular movements intact. Neck: Thyroid: No thyromegaly. Cardiovascular: Rate and Rhythm: Normal rate and regular rhythm. Heart sounds: Normal heart sounds. No murmur heard. Pulmonary: Effort: Pulmonary effort is normal. No respiratory distress. Breath sounds: Normal breath sounds. No wheezing or rales. Skin: General: Skin is warm. Findings: No erythema. Neurological: Mental Status: She is alert and oriented to person, place, and time. Labs: 08/05/2021: TSH 0.08, Free T4 1.1 TPO 3.5, TgbAb 4.7 TSI 5.4 WBC 5.17, Hgb 11.7, Hct 38.1, Plt 308k ALT 19, AST 17 Assessment: Dx: Problem List Items Addressed This Visit None Visit Diagnoses Graves disease - Primary Relevant Orders TSH T4, Free T4, Free TSH Subclinical hyperthyroidism We reviewed labs with the patient. We stated that based off her TSI and TSH, she has Grave's disease. We discussed treatment options for Grave's including Methimazole, radioactive iodine, PTU, and thyroidectomy. We stated that at this time we would not recommend radioactive iodine or thyroidectomy. We ordered a repeat free T4 and TSH labs which she will complete today. Based off the results, we will decide if she should be placed on Methimazole. She states that at this time, she and her aren't actively trying to conceive, but are not using any type of control. We discussed the risks of Methimazole during the first trimester of and she understood this. We stated that if she is placed on Methimazole, she should call us ARMANDO if she is . She would need to be changed to PTU or SSKI during first trimester of . Other side effects including rash, neutropenia, and liver dysfunction was discussed with the patient. Plan: Recheck TSH and FT4 today and before next appt. Follow up in 6 weeks. Notify office if she were to become . She should Return in about 6 weeks (around 10/07/2021). She should complete lab work prior to her next visit. Electronically signed by Nata Tony MD 08/26/21 12:48 PM documented in this encounter [facility] 08-26-2021 History of Presen t illness Narrative Images from the original note were not included. Patient ID: Gardenia Kevin is a 26 y.o. female Subjective: Gardenia is a 26 yo female who presents to our office for consult for subclinical hyperthyroidism. She presented to her primary care provider for symptoms of fatigue and weight gain of 30 lbs over 6 months. Her PCP ordered thyroid function tests and she had a decreased TSH on August 05, 2021. She was also diagnosed with PCOS in February 2021. She went to her OB at the time because she was experiencing irregular, painful periods. She states that she underwent laparoscopy and was told she has cystic ovaries, fibroids, and a heart shaped uterus. She was referred to an infertility clinic, but unfortunately wasn't able to follow up with them due to cost issues. She was placed on Metformin and ferrous sulfate by her PCP for PCOS and iron deficiency anemia three weeks ago. She states that she is experiencing nausea with the medications. Today she states that she is feeling sluggish. She is experiencing appetite changes, fatigue, hair loss, and cold intolerance. She denies symptoms of trouble swallowing, tremors, palpitations, sleep disturbance, and visual disturbances. She is currently on her menstrual cycle. Family history is negative for thyroid disorders. Review of Systems: Review of Systems Constitutional: Positive for appetite change, fatigue and unexpected weight change. Negative for diaphoresis. HENT: Negative for sore throat, trouble swallowing and voice change. Eyes: Negative for pain, redness and visual disturbance. Respiratory: Negative for cough, shortness of breath and wheezing. Cardiovascular: Negative for chest pain and palpitations. Gastrointestinal: Positive for nausea (with metformin and ferrous sulfate). Negative for constipation, diarrhea and vomiting. Endocrine: Positive for cold intolerance (occasional). Negative for heat intolerance. Positive hair loss Genitourinary: Negative for frequency. Musculoskeletal: Negative for neck pain and neck stiffness. Skin: Negative for rash and wound. Neurological: Negative for tremors, seizures, syncope and weakness. Psychiatric/Behavioral: Negative for sleep disturbance. The following portions of the patient's history were reviewed and updated as appropriate: allergies, current medications, past family history, past medical history, past social history, past surgical history and problem list. Allergies Allergen Reactions Naproxen Hives and Rash Current Outpatient Medications Medication Sig Dispense Refill albuterol 90 mcg/actuation inhaler Inhale 2 puffs . azelaic acid (Finacea) 15 % Foam ferrous sulfate 325 (65 FE) MG tablet Take 1 (one) tablet (325 mg total) by mouth daily with breakfast . 90 tablet 0 metFORMIN (GLUCOPHAGE) 500 MG tablet Take 1 (one) tablet (500 mg total) by mouth daily with breakfast . 30 tablet 11 No current facility-administered medications for this visit. Past Medical History: Diagnosis Date PCOS (polycystic ovarian syndrome) 02/2021 No past surgical history on file. Family History Problem Relation Age of Onset Lymphoma Maternal Grandmother Bladder Cancer Maternal Grandfather Social History Socioeconomic History Marital status: Tobacco Use Smoking status: Never Smokeless tobacco: Never Vaping Use Vaping Use: Never used Substance and Sexual Activity Alcohol use: Yes Comment: social drinks Drug use: Never Sexual activity: Yes Partners: Male control/protection: None Objective: BP 120/79 Pulse 60 Ht 5' 2 Wt 72.1 kg (159 lb) BMI 29.08 kg/m Wt Readings from Last 3 Encounters: 08/26/21 72.1 kg (159 lb) 08/05/21 71.2 kg (157 lb) Physical Exam: Physical Exam Constitutional: Appearance: Normal appearance. She is well-developed. HENT: Head: Normocephalic and atraumatic. Eyes: Extraocular Movements: Extraocular movements intact. Neck: Thyroid: No thyromegaly. Cardiovascular: Rate and Rhythm: Normal rate and regular rhythm. Heart sounds: Normal heart sounds. No murmur heard. Pulmonary: Effort: Pulmonary effort is normal. No respiratory distress. Breath sounds: Normal breath sounds. No wheezing or rales. Skin: General: Skin is warm. Findings: No erythema. Neurological: Mental Status: She is alert and oriented to person, place, and time. Labs: 08/05/2021: TSH 0.08, Free T4 1.1 TPO 3.5, TgbAb 4.7 TSI 5.4 WBC 5.17, Hgb 11.7, Hct 38.1, Plt 308k ALT 19, AST 17 Assessment: Dx: Problem List Items Addressed This Visit None Visit Diagnoses Graves disease - Primary Relevant Orders TSH T4, Free T4, Free TSH Subclinical hyperthyroidism We reviewed labs with the patient. We stated that based off her TSI and TSH, she has Grave's disease. We discussed treatment options for Grave's including Methimazole, radioactive iodine, PTU, and thyroidectomy. We stated that at this time we would not recommend radioactive iodine or thyroidectomy. We ordered a repeat free T4 and TSH labs which she will complete today. Based off the results, we will decide if she should be placed on Methimazole. She states that at this time, she and her aren't actively trying to conceive, but are not using any type of control. We discussed the risks of Methimazole during the first trimester of and she understood this. We stated that if she is placed on Methimazole, she should call us ARMANDO if she is . She would need to be changed to PTU or SSKI during first trimester of . Other side effects including rash, neutropenia, and liver dysfunction was discussed with the patient. Plan: Recheck TSH and FT4 today and before next appt. Follow up in 6 weeks. Notify office if she were to become . She should Return in about 6 weeks (around 10/07/2021). She should complete lab work prior to her next visit. Electronically signed by Nata Tony MD 08/26/21 12:48 PM Addendum: 08/26 TSH 0.09, FT4--1.0 Plan: Start methimazole 5 mg daily for 2 weeks, then 2.5 mg daily until follow up in 6 weeks. Will send Rx and call patient with plan. CDorsey documented in this encounter [facility] 08-05-2021 Instructions Hortensia Davis MD - 08/05/2021 3:09 PM EDT Problem List Items Addressed This Visit Endocrine PCOS (polycystic ovarian syndrome) Metformin 500mg daily started Will request records from previous OB Other Encounter for vaccination 2nd dose of MMR completed today Weight gain - Primary 35 pound weight gain in 6 months Will test for ha1c, tsh, cbc, cmp Relevant Orders CBC and Differential Comprehensive Metabolic Panel Vitamin D, Total, 25-OH TSH with Reflex Free T4 Hemoglobin A1c If any referrals were placed at the time of your visit please allow 2 weeks for processing. If you haven't heard from anyone within 2 weeks please contact my office so we can look into the status of your referral. If you were given any labs today please ensure they are completed according to the directions given. Most normal results will be available through [employer] however if abnormal, you will be notified. Please allow 48-72 hours for review, and let you know what steps, if any, are needed next. If you haven't heard from us after that please call to inquire. If labs were ordered to be done PRIOR to your next visit we will discuss the results at the time of your office visit. If any procedures or imaging studies were ordered that must be prior authorized please give us 2 weeks to get them approved. Once approved someone should call you to schedule them or give you a date and time that they were scheduled for. If you haven't heard anything within 2 weeks of the office visit please call the office so we can look into their status. Customer Service/Billing Questions: [phone] [employer] Assistance: [phone] or [phone] Financial Assistance: [phone] or [phone] The following attachments cannot be sent through Care Everywhere.Polycystic Ovary Syndrome (Indonesian)documented in this encounter [facility] 08-05-2021 Evaluation + Plan note Associated Problem(s): PCOS (polycystic ovarian syndrome) Metformin 500mg daily started Will request records from previous OB [facility] 08-05-2021 Evaluation + Plan note Associated Problem(s): Encounter for vaccination 2nd dose of MMR completed today [facility] 08-05-2021 Evaluation + Plan note Associated Problem(s): Weight gain 35 pound weight gain in 6 months Will test for ha1c, tsh, cbc, cmp [facility] 08-05-2021 Miscellaneous Notes Associated Problem(s): PCOS (polycystic ovarian syndrome) Metformin 500mg daily started Will request records from previous OB Associated Problem(s): Encounter for vaccination 2nd dose of MMR completed today Associated Problem(s): Weight gain 35 pound weight gain in 6 months Will test for ha1c, tsh, cbc, cmp documented in this encounter [facility] 08-05-2021 History of Presen t illness Narrative Subjective Patient ID: Gardenia Kevin is a 26 y.o. female. Chief Complaint Patient presents with Establish Care Pcos, weight concerns, annual exam HPI Gardenia Kevin is a 26 y.o. female with a PMHx of PCOS presenting as a new patient to the clinic today for annual physical exam. 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 She is currently being evaluated for infertility-has appt w/ an OB in [place]. She is up to date on her vaccinations with the exception of her MMR which she received today. She does want to discuss 35 pound weight gain in the last 6 months. She has a hx of PCOS and was not started on metformin and is quite interested in this. She denies any changes in her diet or stress, no new medications, no new masses/rashes/ No palpitations, skin or hair changes. She does feel fatigued at time but nothing out of the ordinary. She tends to eat quite healthy and has been exercising regularly as well but has not noticed a change. We discussed getting initial blood work to test for thyroid, ha1c and go from there. She was amenable to this. All pertinent positives and negatives are documented in ROS Patient's medications, allergies, past medical history, surgical history history, family history, social history were reviewed. Spent more than 25 minutes with patient, coordinating patient care, including reviewing charts and counseling patient. Past Medical History: Diagnosis Date PCOS (polycystic ovarian syndrome) History reviewed. No pertinent surgical history. Family History Problem Relation Age of Onset Lymphoma Maternal Grandmother Bladder Cancer Maternal Grandfather Social History Tobacco Use Smoking status: Never Smokeless tobacco: Never Vaping Use Vaping Use: Never used Substance Use Topics Alcohol use: Yes Comment: social drinks Drug use: Never Allergies Allergen Reactions Naproxen Hives and Rash Patient's Medications New Prescriptions METFORMIN (GLUCOPHAGE) 500 MG TABLET Take 1 (one) tablet (500 mg total) by mouth daily with breakfast . Previous Medications ALBUTEROL 90 MCG/ACTUATION INHALER Inhale 2 puffs . AZELAIC ACID (FINACEA) 15 % FOAM Modified Medications No medications on file Discontinued Medications No medications on file Review of Systems Constitutional: Negative for appetite change, chills, fatigue and fever. Eyes: Negative for visual disturbance. Respiratory: Negative for cough, chest tightness, shortness of breath and wheezing. Cardiovascular: Negative for chest pain and palpitations. Gastrointestinal: Negative for abdominal distention, abdominal pain, blood in stool, constipation, diarrhea and nausea. Genitourinary: Negative for dysuria, frequency, hematuria and urgency. Musculoskeletal: Negative for back pain, joint swelling and neck pain. Skin: Negative for rash. Neurological: Negative for dizziness, tremors, weakness, numbness and headaches. Psychiatric/Behavioral: Negative for confusion, decreased concentration, dysphoric mood, sleep disturbance and suicidal ideas. The patient is not nervous/anxious. Objective Vitals: 08/05/21 1426 BP: 130/89 BP Location: Left arm Patient Position: Sitting BP Cuff Size: Adult Pulse: 96 Resp: 16 Temp: 97.8 F (36.6 C) TempSrc: Temporal SpO2: 99% Weight: 71.2 kg (157 lb) Height: 5' 2 Estimated body mass index is 28.72 kg/m as calculated from the following: Height as of this encounter: 5' 2. Weight as of this encounter: 71.2 kg (157 lb). Physical Exam Vitals and nursing note reviewed. Constitutional: Appearance: Normal appearance. HENT: Head: Normocephalic and atraumatic. Right Ear: External ear normal. Left Ear: External ear normal. Nose: Nose normal. Mouth/Throat: Mouth: Mucous membranes are moist. Pharynx: Oropharynx is clear. Eyes: Extraocular Movements: Extraocular movements intact. Conjunctiva/sclera: Conjunctivae normal. Pupils: Pupils are equal, round, and reactive to light. Neck: Thyroid: No thyroid mass, thyromegaly or thyroid tenderness. Trachea: Trachea normal. Cardiovascular: Rate and Rhythm: Normal rate and regular rhythm. Pulmonary: Effort: Pulmonary effort is normal. No respiratory distress. Breath sounds: Normal breath sounds and air entry. No transmitted upper airway sounds. Abdominal: General: Abdomen is flat. Bowel sounds are normal. There is no distension. Palpations: Abdomen is soft. There is no mass. Tenderness: There is no abdominal tenderness. There is no guarding. Musculoskeletal: General: Normal range of motion. Cervical back: Normal range of motion. Right lower leg: No edema. Left lower leg: No edema. Skin: General: Skin is warm. Findings: No rash. Neurological: General: No focal deficit present. Mental Status: She is alert and oriented to person, place, and time. Mental status is at baseline. Cranial Nerves: Cranial nerves are intact. No cranial nerve deficit. Sensory: Sensation is intact. No sensory deficit. Motor: Motor function is intact. Coordination: Coordination is intact. Gait: Gait is intact. Psychiatric: Attention and Perception: Attention and perception normal. Mood and Affect: Mood normal. Speech: Speech normal. Behavior: Behavior normal. Behavior is cooperative. Thought Content: Thought content normal. Thought content does not include homicidal or suicidal ideation. Thought content does not include homicidal or suicidal plan. Cognition and Memory: Cognition normal. Judgment: Judgment normal. PHQ9: DL-7 Tobacco Counseling: Counseling given: No Assessment/Plan: Problem List Encounter for vaccination 2nd dose of MMR completed today Weight gain - Primary 35 pound weight gain in 6 months Will test for ha1c, tsh, cbc, cmp Relevant Orders CBC and Differential Comprehensive Metabolic Panel Vitamin D, Total, 25-OH TSH with Reflex Free T4 Hemoglobin A1c PCOS (polycystic ovarian syndrome) Metformin 500mg daily started Will request records from previous OB Return in about 3 months (around 11/05/2021) for Follow up Chronic Conditions-weight management . For any new medications prescribed today, patient was educated about indications for the medication, how to take the medication and potential side effects of the medications. Hortensia Davis MD [facility] [address] [facility] [address] [facility] [id number] Dept: [phone] documented in this encounter [facility] Evaluation + Plan note Future Appointments Appointment Date:12/28/2024 11:00:00 AM Scheduled Provider:CHRISTIANO ESQUIVEL MD Location: [facility] Appointment Type:[facility] OB Routine Follow Up [facility] Evaluation note No assessment inform ation available [facility] Work Phone: Evaluation note Diagnosis Weight gain- Primary Other symptoms concerning nutrition, metabolism, and development Encounter for vaccination PCOS (polycystic ovarian syndrome) [facility]cystic [facility]ies [facility] Weight gain- Primary Other symptoms concerning nutrition, metabolism, and development [facility] Diagnosis Subclinical hyperthyroidism- Primary Thyrotoxicosis without mention of goiter or other cause, without mention of thyrotoxic crisis or storm Iron deficiency anemia, unspecified iron deficiency anemia type [facility] Diagnosis Subclinical hyperthyroidism- Primary Thyrotoxicosis without mention of goiter or other cause, without mention of thyrotoxic crisis or storm [facility] Diagnosis Graves disease- Primary Toxic diffuse goiter without mention of thyrotoxic crisis or storm Subclinical hyperthyroidism Thyrotoxicosis without mention of goiter or other cause, without mention of thyrotoxic crisis or storm [facility] Diagnosis Graves disease- Primary Toxic diffuse goiter without mention of thyrotoxic crisis or storm Subclinical hyperthyroidism Thyrotoxicosis without mention of goiter or other cause, without mention of thyrotoxic crisis or storm [facility] Diagnosis Graves disease- Primary Toxic diffuse goiter without mention of thyrotoxic crisis or storm [facility] Diagnosis Encounter for screening for respiratory tuberculosis- Primary [facility] Diagnosis Graves disease- Primary Toxic diffuse goiter without mention of thyrotoxic crisis or storm [facility] Diagnosis Laceration of left knee, initial encounter- Primary documented in this encounter [facility] Work Phone: Evaluation note* Diagnosis Weight gain- Primary Other symptoms concerning nutrition, metabolism, and development Encounter for vaccination PCOS (polycystic ovarian syndrome) Polycystic ovaries Iron deficiency anemia, unspecified iron deficiency anemia type- Primary BMI 29.0-29.9,adult Financial difficulties Inadequate material resources Graves disease Toxic diffuse goiter without mention of thyrotoxic crisis or storm Onychomycosis- Primary Dermatophytosis of nail Onychodystrophy Other specified disease of nail Bunion Gastrocnemius equinus, unspecified laterality Tinea pedis, unspecified laterality [facility] Diagnosis Weight gain- Primary Other symptoms concerning nutrition, metabolism, and development Encounter for vaccination PCOS (polycystic ovarian syndrome) Polycystic ovaries Iron deficiency anemia, unspecified iron deficiency anemia type- Primary BMI 29.0-29.9,adult Financial difficulties Inadequate material resources Graves disease Toxic diffuse goiter without mention of thyrotoxic crisis or storm Disorder of both eustachian tubes- Primary Acute viral disease Conductive hearing loss of right ear with unrestricted hearing of left ear [facility] Diagnosis Weight gain- Primary Other symptoms concerning nutrition, metabolism, and development Encounter for vaccination PCOS (polycystic ovarian syndrome) Polycystic ovaries Iron deficiency anemia, unspecified iron deficiency anemia type- Primary BMI 29.0-29.9,adult Financial difficulties Inadequate material resources Graves disease Toxic diffuse goiter without mention of thyrotoxic crisis or storm Healthcare maintenance- Primary Iron deficiency anemia, unspecified iron deficiency anemia type Screening for endocrine, metabolic, and immunity disorder Graves disease Toxic diffuse goiter without mention of thyrotoxic crisis or storm [facility] Diagnosis Weight gain- Primary Other symptoms concerning nutrition, metabolism, and development Encounter for vaccination PCOS (polycystic ovarian syndrome) Polycystic ovaries Iron deficiency anemia, unspecified iron deficiency anemia type- Primary BMI 29.0-29.9,adult Financial difficulties Inadequate material resources Graves disease Toxic diffuse goiter without mention of thyrotoxic crisis or storm Graves disease- Primary Toxic diffuse goiter without mention of thyrotoxic crisis or storm [facility] Narrative No data available for this section [facility] Discharge instructions No data available for this section [facility] Progress note No data available for this section [facility] Summary Purpose Family History No Family History Records FoundNo Family History Records FoundNo Family History Records FoundNo Family History Records FoundNo Family History Records FoundNo Family History Records FoundNo Family History Records FoundNo Family History Records FoundNo Family History Records Found No data available for this section No Family History Records FoundNo Family History Records Found Advance Directives No Advanced Directives Records FoundNo Advanced Directives Records FoundNo Advanced Directives Records FoundNo Advanced Directives Records FoundNo Advanced Directives Records FoundNo Advanced Directives Records FoundNo Advanced Directives Records FoundNo Advanced Directives Records FoundNo Advanced Directives Records FoundNo Advanced Directives Records FoundNo Advanced Directives Records Found Chief Complaint and Reason for Visit Chief Complaint CYCLE DAY 21 Reason for Referral Specialty Diagnoses / Procedures Referred By Contac t Referred To Contact Endocrinology/[place] m / Endocrinology Diagnoses Subclinical hyperthyroidism Hortensia Davis MD [address] [address] Nata Tony MD [address] [place] [address] Referral ID Status Reason Start Date Expiration Date Visits Requested Visits Authorized [id number] Authorized Specialty Services Required/Pat ient's Best Interest 08/07/2021 08/07/2022 1 1 Additional Source Comments INFORMATION SOURCE (unrecogn ized section and content) DATE CREATED AUTHOR 08/19/2017 [facility] DATE CREATED AUTHOR AUTHOR'S ORGANIZ ATION 04/26/2018 [facility] DATE CREATED AUTHOR AUTHOR'S ORGANIZ ATION 01/09/2021 [facility] DATE CREATED AUTHOR AUTHOR'S ORGANIZ ATION 06/12/2021 [facility] DATE CREATED AUTHOR AUTHOR'S ORGANIZ ATION 11/02/2022 [facility] DATE CREATED AUTHOR AUTHOR'S ORGANIZ ATION 12/24/2022 [facility] ([place] DATE CREATED AUTHOR AUTHOR'S ORGANIZ ATION 10/19/2023 [facility] DATE CREATED AUTHOR AUTHOR'S ORGANIZ ATION 10/22/2024 [facility] DATE CREATED AUTHOR AUTHOR'S ORGANIZ ATION 11/03/2024 [facility] DATE CREATED AUTHOR AUTHOR'S ORGANIZ ATION 12/05/2024 [facility] DATE CREATED AUTHOR AUTHOR'S ORGANIZ ATION 12/22/2024 [facility] Goals (unrecognized section and content) Goals may be documented in a n alternate section No data available for this section Reason for Visit (unrecogniz ed section and content) Reason Comments Establish Care Pcos, weight concern s, annual exam Reason Comments Hyperthyroidism Specialty Diagnoses / Procedures Referred By Contac t Referred To Contact Endocrinology/[place] [facility] / Endocrinology Diagnoses Subclinical hyperthyroidism Hortensia Davis MD [address] [address] Nata Tony MD [address] [facility] [place] [address] Referral ID Status Reason Start Date Expiration Date V isits Requested Visits Authorized [id number] Closed Specialty Services Required/Amanda ent's Best Interest 08/07/2021 08/07/2022 1 1 Reason Comments Follow Up Reason Comments Knee Injury Patient to ED referw ence left knee pain/laceration. She fell from back of pick-up truck onto gravel on the ground. Reason Comments Other Nail fungus bilatera lly and chronic athletes foot. Very itchy. Reason Comments Hearing Problem Second Opinion Sudde n Hearing Loss Reason Comments Establish Care Pt. Requesting FMLA paperwork for IVF treatment. Reason Comments Graves' Disease Care Teams (unrecognized sec tion and content) Palaeontologist Relationship Specialty Start Date End Date Hortensia Davis MD [address] [place] [id number] PCP - General Internal Medicine 08/05/21 Palaeontologist Relationship Specialty Start Date End Date Hortensia Davis MD [address] [place] [id number] PCP - General Internal Medicine 08/05/21 Palaeontologist Relationship Specialty Start Date End Date Hortensia Davis MD [address] [address] PCP - General Internal Medicine 08/05/21 Palaeontologist Relationship Specialty Start Date End Date Hortensia Davis MD [address] [address] PCP - General Internal Medicine 08/05/21 Palaeontologist Relationship Specialty Start Date End Date Hortensia Davis MD [address] [place] [id number] PCP - General Internal Medicine 08/05/21 Palaeontologist Relationship Specialty Start Date End Date Hortensia Davis MD [address] [place] [id number] PCP - General Internal Medicine 08/05/21 Palaeontologist Relationship Specialty Start Date End Date Hortensia Davis MD [address] [place] [id number] PCP - General Internal Medicine 08/05/21 Palaeontologist Relationship Specialty Start Date End Date Hortensia Davis MD [address] [place] [id number] PCP - General Internal Medicine 08/05/21 Palaeontologist Relationship Specialty Start Date End Date Hortensia Davis MD [address] [place], [place] [id number] PCP - General Internal Medicine 08/05/21 Palaeontologist Relationship Specialty Start Date End Date Hortensia Davis MD [address] [place], [place] [id number] PCP - General Internal Medicine 08/05/21 Palaeontologist Relationship Specialty Start Date End Date Generic Provider, No Assigned Pcp[facility] [address] [place] [address] PCP - General Family Medicine 12/03/22 Palaeontologist Relationship Specialty Start Date End Date No, Physician [facility] PCP - General 11/02/23 Palaeontologist Relationship Specialty Start Date End Date No, Physician [facility] PCP - General 11/02/23 Palaeontologist Relationship Specialty Start Date End Date Kayla Ambriz CNP [address] [place], [place] [id number] PCP - General Nurse Practitioner 10/18/24 Palaeontologist Relationship Specialty Start Date End Date No, Physician [facility] PCP - General 11/02/23 10/17/24 Ayaan Ambrizn RicardaJAMEL [address] [place] [address] PCP - General Nurse Practitioner 10/18/24 Palaeontologist Relationship Specialty Start Date End Date Kayla Ambriz RicardaJAMEL [address] [place] [id number] PCP - General Nurse Practitioner 10/18/24 Palaeontologist Relationship Specialty Start Date End Date Kayla AmbrizJAMEL [address] [address] PCP - General Nurse Practitioner 10/18/24 Source Comments (unrecognize d section and content) In the event this informatio n is protected by the Federal Confidentiality of Alcohol and Drug Abuse Patient Records regulations: The Federal rules restrict any use of the information to criminally investigate or prosecute any alcohol or drug abuse patient.[facility] Scheduled Active and Recently Administ ered Medications (unrecognized section and content) Medication Order 12/01/2022 12/02/2022 12/03/2022 bacitracin ointment 1 Application (COMPLETED) 1 Application, Topical, Once, On Thu12/03/22 at 1605, For 1 dose, Apply to: knee 1618 (Given - Provid er: Marisela Gonzalez RN) FOR RECORDS PERTAINING TO PATIENTS WHO ARE OR HAVE BEEN ENROLLED IN A CHEMICAL DEPENDENCY/SUBSTANCEABUSE PROGRAM, SOME INFORMATION MAY BE OMITTED. This clinical summary was aggregated from multiple sources. Caution should be exercised in using it in the provision of clinical care. This summary normalizes information from multiple sources, and as a consequence, information in this document may materially change the coding, format and clinical context of patient data. In addition, data may be omitted in some cases. CLINICAL DECISIONS SHOULD BE BASED ON THE PRIMARY CLINICAL RECORDS. [facility]. provides no warranty or guarantee of the accuracy or completeness of information in this document.
[2025-01-13 12:14] LABS: AST(SGOT) 19 U/L (<=31); Alanine Aminotransfer ALT/SGPT 14 U/L (<=34); Albumin, Serum 3.9 g/dL (3.5-5.0); Alkaline Phosphatase 57 U/L (35-104); Anion Gap 11 (5-15); BUN 7 mg/dL (4-19); BUN/Creat Ratio 12.7 RATIO (10-20); Calcium,Total 9.0 mg/dL (7.6-11.0); Carbon Dioxide 22.0 mmol/L (21.0-32.0); Chloride 102 mmol/L (98-108); Estimated Creatinine Clearance 138.85 ml/min (50-250); Globulin 2.7 g/dL (2.2-4.2); Glucose 90 mg/dL (70-99); Lipase 23 U/L (13-75); Potassium 4.3 mmol/L (3.3-5.1)
[2025-01-13 13:10] VITALS: BP 122/74; PULSE 65; RESP 16; O2SAT 99
[2025-01-13 14:30] VITALS: BP 115/73; PULSE 84; RESP 16; TEMP 36.8; O2SAT 99
--- NOTE | 2025-01-13 16:26 | EX.ED.DYSGE1 ---
HPI History of Present Illness Chief Complaint: Nausea/Vomiting Narrative Narrative: Pt is a very pleasant 29-year-old female who is presenting to the ER today with chief complaint of nausea and vomiting that started earlier this morning around 1 AM. Patient is 15 weeks . Patient is a G1, P0. Patient became with in vitro fertilization. Patient and I had a brief discussion with the process of her in vitro fertilization, she had told me that she had 2 other embryos saved, I gave her example of a very close friend of mine who had IVF and triplets. The process and genetic process was discussed, congratulations was given to the patient and her journey thus far. 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 Patient is around sick contacts, but nothing specific that she knows of. She has no headache or neck pain. Patient states that she cannot keep any liquids and since approxi-1 AM. Patient is having yellowish-greenish emesis. She has no urinary frequency urgency or burning. Patient has no significant abdominal pain, flank or back pain. No recent traveling. No new antibiotics. No other acute complaints. Patient has no rash. No chest pain or shortness of breath. REVIEW OF SYSTEMS: Unless otherwise stated in this report the patient's positive and negative responses for review of systems for constitutional, eyes, ENT, cardiovascular, respiratory, gastrointestinal, neurological, , musculoskeletal, and integument systems and related systems to the presenting problem are either stated in the history of present illness or were not pertinent or were negative for the symptoms and/or complaints related to the presenting medical problem. Nurse's notes and vital signs reviewed. The patient is not hypoxic. Vital signs reviewed and patient is not hypoxic. General: The patient appears well and in no apparent distress. Patient is resting comfortably on cart. Not toxic, lethargic, or listless. Skin: Warm, dry, no pallor noted. There is no rash noted. Head: Normocephalic, atraumatic Eye: Normal conjunctiva, no drainage, EOMI. PERRL. Ears, Nose, Mouth, and Throat: oral mucosa is moist. Nares patent. Mouth without vesicles. Cardiovascular: Regular Rate and Rhythm, no murmurs, gallops, or rubs Respiratory: Patient is in no distress, no accessory muscle use, lungs are clear to auscultation, no wheezing, rales or rhonchi equal breath sounds bilateral.. Back: Mild right lower thoracic posterior tenderness to palpation, no rash, no crepitus. Non-tender, no CVA tenderness bilaterally to percussion. NO CTLS midline or paraspinal tenderness to palpation. GI: Soft, no tenderness to palpation, no masses appreciated. No rebound, guarding, or rigidity noted. Musculoskeletal: The patient has full range of motion of all extremities and joints with no difficulty. Patient has no motor, no sensory deficits. Neurological: A&O x4, normal speech, no focal neurological deficits. Psychiatric: Cooperative [facility] Medical History (Updated 01/13/25 @ 14:[address] Yung Mishra, DO) Hyperthyroidism Home Medications ?Medication ?Instructions ?Recorded ?Last Taken ?Type [id number] 3 fatty no.1 27 cap PO 01/13/25 Unknown History mg-1 mg-300 mg capsule aspirin 81 mg tablet 81 mg PO DAILY 01/13/25 Unknown History ondansetron 4 mg disintegrating 4 mg PO Q8H PRN PRN Nausea #10 tabs 01/13/25 Unknown Rx tablet promethazine 25 mg rectal 25 mg RECTAL Q6H PRN PRN Nausea ##6 01/13/25 Unknown Rx suppository (Promethegan) propylthiouracil 50 mg tablet 50 mg PO TID 01/13/25 Unknown History Allergy/AdvReac Type Severity Reaction Status Date / Time No Known Allergies Allergy Verified 01/13/25 11:12 Social History Smoking Status: Never smoker EXAM Physical Exam Const Vital Signs: 01/13/25 11:10 01/13/25 13:10 01/13/25 14:30 Temperature 98.6 F 98.2 F Temperature Source Oral Pulse Rate 112 H 65 84 Respiratory Rate 16 16 16 Blood Pressure 139/89 H 122/74 H 115/73 Blood Pressure Mean 105 90 87 Pulse Ox 99 99 99 Oxygen Delivery Method Room Air Room Air MDM MDM MDM Narrative Medical decision making narrative: Patient seen and examined: IV, fluids, Zofran, urine Differential diagnosis includes but is not limited to: Hyperemesis gravidarum, UTI, dehydration, electrolyte abnormality, infection Relevant laboratory interpretation: No acute findings; platelets of 122 were discussed with patient. Patient had small urine ketones, leuk esterase of 25. No acute signs of UTI. Reevaluation: Patient stated that she just finished antibiotics for urinary tract infection several weeks ago. Patient says that she has had Multiple urinary tract infections since she was a child. For unknown reason, patient has never followed up with a urologist. Patient was strongly recommended to follow-up with a urologist that could be recommended by her PCP or MARKET RISK ANALYST in case she has some type of reflux or anatomical obstruction that would be causing her to have a UTI since she was a child. Patient is urinating after intercourse. Patient states she has had multiple UTIs as a child, teenager, and adult. Patient will have urine culture placed, she has no urinary symptoms at this time, and since she has been on so many different antibiotics in the past, patient and I had shared decision making and she will not be placed on antibiotic at this time. Social barriers to healthcare: There are no food insecurities, there is no issue with transportation, there are no insurance barriers Disposition: patient will be discharged. Patient sent home with Zofran and Phenergan suppositories to use if needed. Patient extremely thankful for all the help, very pleasant to take care of. Patient felt significantly better after 300 cc of fluid and Zofran was given. Patient tolerated ice chips well. Urine culture pending. No antibiotics started. Lab Data Attestation: I reviewed the patient's lab results. Labs: Laboratory Results - last 24 hr 01/13/25 01/13/25 11:39 11:43 WBC 8.3 RBC 4.70 Hgb 13.5 Hct 39.5 MCV 84.0 MCH 28.7 MCHC 34.2 RDW Std Deviation 39.5 RDW Coeff of Lara 12.9 Plt Count 122 L MPV 8.8 Immature Gran % (Auto) 0.500 Neut % (Auto) 87.7 H Lymph % (Auto) 4.4 L [place] % (Auto) 7.2 Eos % (Auto) 0.1 Baso % (Auto) 0.1 Absolute Neuts (auto) 7.3 Absolute Lymphs (auto) 0.37 L Nucleated RBC % 0 Sodium 135 Potassium 4.3 Chloride 102 Carbon Dioxide 22.0 Anion Gap 11 BUN 7 Creatinine 0.58 L Estim Creat Clear Calc 138.85 Est GFR (MDRD) Non-Af 125 BUN/Creatinine Ratio 12.7 Glucose 90 Calcium 9.0 Total Bilirubin 0.30 AST 19 ALT 14 Alkaline Phosphatase 57 Total Protein 6.6 Albumin 3.9 Globulin 2.7 Albumin/Globulin Ratio 1.5 Lipase 23 Urine Color Yellow Urine Clarity Clear Urine pH 6.0 Ur Specific [place] 1.020 Urine Protein Negative Urine Glucose (UA) Normal Urine Ketones 5 H Urine Occult Blood Negative Urine Nitrite Negative Urine Bilirubin Negative Urine Urobilinogen Normal Ur Leukocyte Esterase 25 H Urine RBC 0 SEEN Urine WBC 0-5 SEEN Ur Squamous Epith Cells 0-5 SEEN Urine Bacteria 2+ Urine Mucus 1+ Discharge Plan Triage Chief Complaint: Nausea/Vomiting ED Provider: Yung Mishra Dx/Rx/DC Orders Clinical Impression: Dehydration, mild, Nausea & vomiting Instructions: ED Dehydration (Adult), ED Vomiting (Adult) Prescriptions: New promethazine [Promethegan] 25 mg suppository 25 mg RECTAL Q6H PRN PRN (Reason: Nausea) Qty: 6 0RF ondansetron 4 mg tablet,disintegrating 4 mg PO Q8H PRN PRN (Reason: Nausea) Qty: 10 0RF No Action aspirin 81 mg tablet 81 mg PO DAILY [id number] 3 fatty no.1 27-1-300 mg capsule PO propylthiouracil 50 mg tablet 50 mg PO TID Stand Alone Forms: ED Work / School Excuse Primary Care Provider: Kayla Ambriz Referrals: Kayla Ambriz, TAMARA-C [Primary Care Provider, Family Practice] Activity Restrictions/Additional Instructions: Increase fluids at home, Gatorade, Powerade, or electrolyte drinks. Print Language: Israeli Disposition Disposition: Home, Self Care Discharge Date/Time: 01/13/25 14:31
== END 2025-01-13 14:31 | disposition home or self-care (01) ==
PROVIDERS: Emergency Provider Emergency Medicine; Visit Provider Emergency Medicine
DX: O99.282 Endocrine, nutritional and metabolic diseases complicating pregnancy, second trimester (principal); O21.9 Vomiting of pregnancy, unspecified; E86.0 Dehydration; Z3A.15 15 weeks gestation of pregnancy; Z79.82 Long term (current) use of aspirin
CPT/HCPCS: 80053; 81001; 83690; 85025; 96365; 96366; 96375; 96376; 99283; A4216; J2405